=== PATIENT | male | born 1925 | race Caucasian/White ===

== ENCOUNTER 2017-05-03 16:50 | Inpatient (IN) | payer MEDICARE, OTHER ==
[2017-05-03 22:22] LABS: ALB/GLOB RATIO 1.1 (1.1-1.8); ALBUMIN 3.7 g/dL (3.0-4.8); ALT/SGPT 43 U/L (7-56); AST/SGOT 55 U/L (15-59); BLOOD UREA NITROGEN 32 mg/dL (7-21); CALCIUM 9.2 mg/dL (8.4-10.5); GFR AFRICAN-AMERICAN > 60; GFR NON-AFRICAN AMERICAN > 60
[2017-05-03 22:32] LABS: VENOUS BLOOD GAS BASE EXCESS 2.9 mmol/L (0.0-2.0); VENOUS BLOOD GAS PO2 29 mm/Hg (30-55); VENOUS BLOOD PH 7.37 (7.32-7.43)
[2017-05-03 22:33] LABS: INR 1.04 (0.93-1.08); MEAN CELL VOLUME 94.3 fL (80.0-105.0); MEAN CORPUSCULAR HEMOGLOBIN 31.4 pg (25.0-35.0); MEAN CORPUSCULAR HGB CONC 33.3 g/dl (31.0-37.0); MEAN PLATELET VOLUME 10.4 fl (7.0-11.0); PARTIAL THROMBOPLASTIN TIME 29.5 Seconds (23.7-30.8); PROTHROMBIN TIME 11.2 Seconds (9.9-11.8); RBC 3.5 10^6/uL (3.5-6.1); RED CELL DISTRIBUTION WIDTH 13.4 % (11.5-14.5); WHITE BLOOD COUNT 12.2 10^3/ul (4.5-11.0)
[2017-05-03 22:34] LABS: PH,URINE 6.5 (4.7-8.0); URINE APPEARANCE SL CLOUDY (CLEAR); URINE BILIRUBIN NEGATIVE (NEGATIVE); URINE BLOOD MODERATE (NEGATIVE); URINE COLOR YELLOW (YELLOW); URINE GLUCOSE (UA) NEGATIVE (NEGATIVE)
[2017-05-03 22:35] LABS: URINE LEUKOCYTE ESTERASE NEGATIVE Leu/uL (NEGATIVE); URINE NITRATE NEGATIVE (NEGATIVE); URINE PROTEIN TRACE mg/dL (<30 mg/dL); URINE RBC 15 - 20 /hpf (0-2); URINE UROBILINOGEN 0.2 E.U./dL (<1 E.U./dL); URINE WBC 15 - 20 /hpf (0-6)
[2017-05-03 22:36] LABS: URINE BACTERIA MOD (NEG)
[2017-05-03 23:02] VITALS: BMI 44.6
--- NOTE | 2017-05-04 00:02 | ED PDOC ---
Arrival/HPI - General Time Seen by Provider: 05/03/17 22:38 Historian: Patient - History of Present Illness Narrative History of Present Illness (Text): 05/03/17 23:54 89yo male with history of Dementia with the daughter's by the bedside referred to ED by his Urologist for testicular pain/swelling x days. The daughter states patient was given Bactrim DS, which he took for 3days without relieve. Saw the Urologist again today and was referred to ED to r/o possible incarcerated hernia. The daughter's however denies abdominal pain, nausea, vomiting, fever, chills, chest pain, SOB. They also reports back pain. states he tripped while walking today and fell on his back. Denies LOC, dizziness, focal weakness, any other complaint. Past Medical History - Provider Review Nursing Documentation Reviewed: Yes - Cardiac Hx Cardiac Disorders: No - Neurological Hx Neurological Disorder: Yes HX Cerebrovascular Accident: Yes Hx Dementia: Yes - Psychiatric Hx Substance Use: No - Surgical History Other/Comment: colon surgery - Anesthesia Hx Anesthesia: Yes Hx Anesthesia Reactions: No Hx Malignant Hyperthermia: No Family/Social History - Physician Review Nursing Documentation Reviewed: Yes Family/Social History: Unknown Family HX Smoking Status: Never Smoked Hx Alcohol Use: No Hx Substance Use: No Allergies/Home Meds Allergies/Adverse Reactions: Allergies No Known Allergies Allergy (Unverified 12/01/16 15:31) Home Medications: Home Meds Medication Instructions Recorded Confirmed Donepezil HCl [Aricept ODT] 5 mg PO HS 12/01/16 12/01/16 Primidone [Mysoline] 250 mg PO DAILY 12/01/16 12/01/16 predniSONE [predniSONE Tab] 5 mg PO QOTHERDAY 12/01/16 12/01/16 Review of Systems - Physician Review All systems were reviewed & negative as marked: Yes - Review of Systems Constitutional: Normal Eyes: Normal ENT: Normal Respiratory: Normal Cardiovascular: Normal Gastrointestinal: Normal Genitourinary Male: Other (Testicular pain/swelling) Musculoskeletal: Back Pain Skin: Normal Neurological: Normal Endocrine: Normal Hemo/Lymphatic: Normal Psychiatric: Normal Physical Exam Vital Signs Reviewed: Yes Temperature: Afebrile Blood Pressure: Normal Pulse: Regular Respiratory Rate: Normal Appearance: Positive for: Well-Appearing, Non-Toxic, Comfortable Pain Distress: None Mental Status: Positive for: Alert and Oriented X 3 - Systems Exam Head: Present: Atraumatic, Normocephalic Pupils: Present: PERRL Extroacular Muscles: Present: EOMI Conjunctiva: Present: Normal Mouth: Present: Moist Mucous Membranes Neck: Present: Normal Range of Motion Respiratory/Chest: Present: Clear to Auscultation, Good Air Exchange. No: Respiratory Distress, Accessory Muscle Use Cardiovascular: Present: Regular Rate and Rhythm, Normal S1, S2. No: Murmurs Abdomen: Present: Normal Bowel Sounds. No: Tenderness, Distention, Peritoneal Signs Genitourinary Male: Present: Testicle Tenderness (LEft sided testicular tenderness), Erythema, Testicle Swelling (Worse on the left) Back: Present: Midline Tenderness, Paraspinal Tenderness. No: Pain with Leg Raise Upper Extremity: Present: Normal Inspection. No: Cyanosis, Edema Lower Extremity: Present: Normal Inspection. No: Edema Neurological: Present: GCS=15, CN II-XII Intact, Speech Normal, Motor Func Grossly Intact, Normal Sensory Function, Other (No focal neurological deficit) Skin: Present: Warm, Dry, Normal Color. No: Rashes Psychiatric: Present: Alert, Oriented x 3, Normal Insight, Normal Concentration Medical Decision Making ED Course and Treatment: 05/04/17 00:07 Case was LUANNE Gil. Wants pt admitted to the Hospitalist and he will see pt tomorrow. Case was LUANNE Burrell and he accepted pt. All result and plan was DW patient daughter's and they agreed. IMPRESSION: Atrophy and small vessel disease, old right temporal infarct; no bleed IMPRESSION: Large avascular heterogeneous left scrotal mass possibly hematoma; hyperemic left testis, no torsion; cystic right scrotal lesion possibly hydrocele of the cord unchanged compared with the prior study; right paratesticular nodule unchanged compared with the prior study, no right torsion FINDINGS: Vertebrae: T11, T12 and 5 lumbar vertebral bodies are normal in height and alignment. There are no fractures. Bony structures are osteopenic. There are degenerative osteophytes at multiple levels. Disc spaces are maintained. Facet joints align anatomically.Spinous processes align in the expected fashion. There is partial ankylosis of the sacroiliac joints. Visualized sacrum is intact. Discs/spinal canal/neural foramina: See above. Soft tissues: Psoas and paraspinous muscles are symmetric. Retroperitoneum: There are bilateral nonobstructing stones. There is mild infrarenal dilatation of the aorta 2.3 cm in diameter. There is mild dilatation of the common iliac arteries , approximately 1.6 cm in diameter bilaterally. IMPRESSION: Osteopenia degenerative change, no fracture seen - Lab Interpretations Lab Results: 05/03/17 18:30 05/03/17 18:30 Lab Results 05/03/17 19:00: pO2 29 L, VBG pH 7.37, VBG pCO2 50.0, VBG HCO3 28.9 H, VBG O2 Sat (Calc) 58.3, VBG Base Excess 2.9 H 05/03/17 18:30: Urine Color Yellow, Urine Appearance Sl cloudy, Urine pH 6.5, Ur Specific [place] 1.020, Urine Protein Trace H, Urine Glucose (UA) Negative, Urine Ketones 15 H, Urine Blood Moderate H, Urine Nitrate Negative, Urine Bilirubin Negative, Urine Urobilinogen 0.2, Ur Leukocyte Esterase Negative, Urine RBC 15 - 20, Urine WBC 15 - 20, Ur Epithelial Cells 6 - 8, Urine Bacteria Mod 05/03/17 18:30: PT 11.2, INR 1.04, APTT 29.5 05/03/17 18:30: Sodium 134, Potassium 4.7, Chloride 101, Carbon Dioxide 25, Anion Gap 13, BUN 32 H, Creatinine 0.8, Est GFR ( Amer) > 60, Est GFR ( Non-Af Amer) > 60, Random Glucose 102, Calcium 9.2, Total Bilirubin 0.9, AST 55 , ALT 43, Alkaline Phosphatase 88, Total Protein 6.9, Albumin 3.7, Globulin 3.3 , Albumin/Globulin Ratio 1.1 05/03/17 18:30: WBC 12.2 H D, RBC 3.50, Hgb 11.0 L, Hct 33.0 L, MCV 94.3, MCH 31.4, MCHC 33.3, RDW 13.4, Plt Count 182, MPV 10.4 - RAD Interpretation Radiology Orders: 05/03/17 17:37 HEAD W/O CONTRAST [CT] Stat LUMBAR SPINE W/O CONTRAST [CT] Stat - Medication Orders Current Medication Orders: Discontinued Medications Tramadol HCl (Ultram) 50 mg PO STAT STA Stop: 05/03/17 23:05 Disposition/Present on Arrival - Present on Arrival Any Indicators Present on Arrival: No History of DVT/PE: No History of Uncontrolled Diabetes: No Urinary Catheter: No History of Decub. Ulcer: No History Surgical Site Infection Following: None - Disposition Have Diagnosis and Disposition been Completed?: Yes Diagnosis: Testicular mass, Testicular pain, Back pain Disposition: HOSPITALIZED Disposition Time: 22:45 Condition: FAIR
--- NOTE | 2017-05-04 00:42 | CP.PCM.HP ---
<Gigi Brasher - Last Filed: 05/04/17 08:33> History of Present Illness - History of Present Illness History of Present Illness: cc: testicular pain HPI: Patient is an 89yo male with history of dementia, CVA that presents c/o testicular pain. Patient's family reported that he had been having testicular pain for several days now and was seen by his urologist earlier in the week. They report that he was prescribed bactrim which he was taking without relief. He was seen by his urologist again today who recommended he come to the emergency room due to concerns of a possible incarcerated hernia. They also reported that he fell while walking earlier in the day however denied loss of consciousness, post-ictal like state, focal weakness, numbness, tingling. Denied chest pain, palpitations, SOB. 12point ROS as per HPI above otherwise negative PMHx: dementia, CVA PSHx: colon surgery Allergies: NKDA Social Hx: denies tobacco, alcohol and illicit drugs Family Hx: Noncontributory Present on Admission - Present on Admission Any Indicators Present on Admission: No Past Patient History - Past Social History Smoking Status: Never Smoked - CARDIAC Hx Cardiac Disorders: No - NEUROLOGICAL Hx Neurological Disorder: Yes HX Cerebrovascular Accident: Yes Hx Dementia: Yes - PSYCHIATRIC Hx Substance Use: No - SURGICAL HISTORY Other/Comment: colon surgery - ANESTHESIA Hx Anesthesia: Yes Hx Anesthesia Reactions: No Hx Malignant Hyperthermia: No Meds Allergies/Adverse Reactions: Allergies Allergy/AdvReac Type Severity Reaction Status Date / Time No Known Allergies Allergy Verified 05/12/17 00:20 Physical Exam - Constitutional Appears: No Acute Distress - Head Exam Head Exam: ATRAUMATIC, NORMAL INSPECTION, NORMOCEPHALIC - Eye Exam Eye Exam: EOMI, PERRL - ENT Exam ENT Exam: Mucous Membranes Moist - Neck Exam Neck exam: Positive for: Normal Inspection. Negative for: Lymphadenopathy, Thyromegaly - Respiratory Exam Respiratory Exam: Clear to Auscultation Bilateral. absent: Rales, Rhonchi, Wheezes - Cardiovascular Exam Cardiovascular Exam: RRR, +S1, +S2. absent: Gallop, Rubs - GI/Abdominal Exam GI & Abdominal Exam: Normal Bowel Sounds, Soft. absent: Distended, Firm, Guarding, Rigid, Tenderness - Exam Exam: Scrotal Swelling, Testicular Tenderness. absent: NORMAL INSPECTION - Neurological Exam Neurological exam: Alert, Oriented x3 - Psychiatric Exam Psychiatric exam: Normal Affect, Normal Mood - Skin Skin Exam: Dry, Intact, Normal Color, Warm Results - Labs Result Diagrams: 05/03/17 18:30 05/03/17 18:30 Assessment & Plan - Assessment and Plan (Free Text) Plan: 89yo male with history of dementia presents c/o left sided testicular pain 1. Testicular pain -Testicular duplex revealed Large avascular heterogeneous left scrotal mass possibly hematoma; hyperemic left testis, no torsion; cystic right scrotal lesion possibly hydrocele of the cord unchanged compared with the prior study; right paratesticular nodule unchanged compared with the prior study, no right torsion -Case was discussed between ED and urology; recommendation admission for urologic evaluation in the AM -UA notable for mod bacteria, 15-20 WBCs/RBCs, moderate blood -leukocytosis of 12.2 -Blood/urine cultures pending; procalcitonin pending -Urology was consulted - Dr. Gil 2. Back pain s/p fall -CT head revealed atrophy and small vessel disease, old right temporal infarct; no bleed -CT lumbar spine revealed Osteopenia degenerative change, no fracture seen -Pain control 3. Dementia -Continue home medication 4. Gi/DVT prophylaxis -Protonix/heparin Patient seen and case discussed with attending, Dr. Burrell - Date & Time Date: 05/04/17 Time: 00:40 <Kraig Burrell MD - Last Filed: 05/19/17 04:54> Results - Vital Signs Recent Vital Signs: Last Vital Signs Temp 98 F 05/08/17 16:00 Pulse 87 05/08/17 16:00 Resp 19 05/08/17 16:00 BP 121/63 05/08/17 16:00 Pulse Ox 96 05/08/17 16:00 - Labs Result Diagrams: 05/08/17 07:50 05/08/17 07:50 Attending/Attestation - Attestation I have personally seen and examined this patient.: Yes I have fully participated in the care of the patient.: Yes I have reviewed all pertinent clinical information: Yes Notes (Text): 05/19/17 04:53 -I agree with the above H&P completed by the resident physician.
[2017-05-04 07:28] LABS: % IRON SATURATION 12 % (20-55); IRON 28 ug/dL (45-180); TOTAL IRON BINDING CAPACITY 230 ug/dL (261-462)
--- NOTE | 2017-05-04 09:35 | CT ---
PROCEDURE: CT HEAD WITHOUT CONTRAST. HISTORY: TRAUMA COMPARISON: 08/10/2016 TECHNIQUE: Axial computed tomography images were obtained through the head/brain without intravenous contrast. Radiation dose: Total exam DLP = 774.23 mGy-cm. This CT exam was performed using one or more of the following dose reduction techniques: Automated exposure control, adjustment of the mA and/or kV according to patient size, and/or use of iterative reconstruction technique. FINDINGS: HEMORRHAGE: No intracranial hemorrhage. BRAIN: No mass effect or edema. No atrophy or chronic microvascular ischemic changesMacro atrophies old left temporal lobe infarct. VENTRICLES: Unremarkable. No hydrocephalus. CALVARIUM: Unremarkable. PARANASAL SINUSES: Unremarkable as visualized. No significant inflammatory changes. MASTOID AIR CELLS: Unremarkable as visualized. No inflammatory changes. OTHER FINDINGS: None. IMPRESSION: No acute intracranial abnormalities. No significant findings to account for the clinical presentation. No significant interval change compared to the prior examination(s). Concordant results (preliminary interpretation) provided by [facility] Procedure Completed: 18:38 Preliminary ([facility]) Report: Dictated and Authenticated: 19:42 Final Interpretation: 09:33. May 04, 2017.
[2017-05-04] MEDS: cefTRIAXone 1 gm 1 GM/100 ML BAG IVPB SCH (10:04)
--- NOTE | 2017-05-04 10:56 | CT ---
PROCEDURE: CT Lumbar Spine without contrast HISTORY: TRAUMA COMPARISON: 12/01/2016. CT abdomen and pelvis TECHNIQUE: Axial computed tomography images were obtained of the lumbar spine without the use of intravenous contrast. Coronal and sagittal reformatted images were created and reviewed. Radiation dose: Total exam DLP = 192.35 mGy-cm. This CT exam was performed using one or more of the following dose reduction techniques: Automated exposure control, adjustment of the mA and/or kV according to patient size, and/or use of iterative reconstruction technique. FINDINGS: VERTEBRAE: Normal alignment. No vertebral body fractures identified. DISCS/SPINAL CANAL/NEURAL FORAMINA: L1-2: Unremarkable. L2-3: Unremarkable. L3-4: Unremarkable. L4-5: Unremarkable. L5-S1: Unremarkable. PARASPINAL SOFT TISSUES: Unremarkable. OTHER FINDINGS: Multiple nonobstructing renal calculi bilaterally. Findings apparent on prior CT scan of the abdomen and pelvis performed Calcified nonaneurysmal abdominal aorta. IMPRESSION: No acute findings related to/accounting for the clinical presentation. Additional benign and/or incidental findings described above. Concordant results (preliminary interpretation) provided by [facility] [employer]. Procedure Completed: 16:52 Preliminary ([facility]) Report: Dictated and Authenticated: 19:49. Final Interpretation: 10:52. May 04, 2017.
--- NOTE | 2017-05-04 11:32 | RAD ---
HISTORY: admission COMPARISON: 12/01/2016 FINDINGS: LUNGS: Fibronodular changes, apical scarring bilaterally. PLEURA: No significant pleural effusion identified, no pneumothorax apparent. CARDIOVASCULAR: Normal. OSSEOUS STRUCTURES: No significant abnormalities. VISUALIZED UPPER ABDOMEN: Normal. OTHER FINDINGS: None. IMPRESSION: No active disease. No significant interval change compared to the prior examination(s).
--- NOTE | 2017-05-04 20:19 | US ---
PROCEDURE: Duplex testicular ultrasound HISTORY: Scrotal mass and pain. PHYSICIAN(S): Giovanny Calhoun MD. TECHNIQUE: FINDINGS: The testicles are normal in size and appearance. No testicular masses are identified. Normal duplex signal is seen within the testicle. There is a 3.2 x 4.0 cm anechoic fluid collection superior to the right testicle. This could represent an epididymal cyst. The left epididymis is markedly dilated and heterogeneous in echotexture. This appears to represent epididymitis. IMPRESSION: 1. Normal testicles. No testicular mass is identified and there is normal duplex flow. 2. Markedly enlarged and heterogeneous left epididymis. 3. 4 cm right epididymal cyst
[2017-05-05] MEDS: Pantoprazole 40 mg EC Tab PO SCH (06:45)
[2017-05-05 07:41] LABS: HEMOGLOBIN 10.7 gm/dL (14.0-18.0); MEAN CELL VOLUME 93.7 fL (80.0-105.0); MEAN CORPUSCULAR HEMOGLOBIN 30.8 pg (25.0-35.0); MEAN CORPUSCULAR HGB CONC 32.9 g/dl (31.0-37.0); MEAN PLATELET VOLUME 10.4 fl (7.0-11.0); RBC 3.47 10^6/uL (3.5-6.1); RED CELL DISTRIBUTION WIDTH 13.2 % (11.5-14.5)
[2017-05-05 07:45] LABS: INR 0.95 (0.93-1.08); PARTIAL THROMBOPLASTIN TIME 29.9 Seconds (23.7-30.8); PROTHROMBIN TIME 10.3 Seconds (9.9-11.8)
[2017-05-05 08:01] LABS: ALBUMIN 3.3 g/dL (3.0-4.8); ALT/SGPT 41 U/L (7-56); AST/SGOT 55 U/L (15-59); BLOOD UREA NITROGEN 25 mg/dL (7-21); GFR AFRICAN-AMERICAN > 60; GFR NON-AFRICAN AMERICAN > 60
--- NOTE | 2017-05-05 08:06 | PCM.URO ---
Urology Progress Note - Objective Lab Results Last 24 Hours: Laboratory Results - last 24 hr 05/04/17 05/04/17 05/05/17 06:00 06:00 07:00 WBC 8.0 D RBC 3.47 L Hgb 10.7 L Hct 32.5 L MCV 93.7 MCH 30.8 MCHC 32.9 RDW 13.2 Plt Count 177 MPV 10.4 PT INR APTT Sodium Potassium Chloride Carbon Dioxide Anion Gap BUN Creatinine Est GFR ( Amer) Est GFR (Non-Af Amer) Random Glucose Calcium Ferritin 130.0 Total Bilirubin AST ALT Alkaline Phosphatase Total Protein Albumin Globulin Albumin/Globulin Ratio Vitamin B12 478 Folate 12.0 Procalcitonin 0.46 05/05/17 05/05/17 07:00 07:00 WBC RBC Hgb Hct MCV MCH MCHC RDW Plt Count MPV PT 10.3 INR 0.95 APTT 29.9 Sodium 136 Potassium 4.7 Chloride 100 Carbon Dioxide 29 Anion Gap 12 BUN 25 H Creatinine 0.6 Est GFR ( Amer) > 60 Est GFR (Non-Af Amer) > 60 Random Glucose 87 Calcium 9.0 Ferritin Total Bilirubin 0.4 AST 55 ALT 41 Alkaline Phosphatase 80 Total Protein 6.5 Albumin 3.3 Globulin 3.2 Albumin/Globulin Ratio 1.0 L Vitamin B12 Folate Procalcitonin Intake & Output: Intake & Output 05/04/17 05/05/17 05/05/17 18:59 06:59 18:59 Intake Total 720 120 0 Output Total 400 300 Balance 320 120 -300 Intake: Oral 720 120 0 Output: Urine 400 300 Urine, Voided 400 300 Other: # Voids Urine, Voided 2 1 # Bowel Movements 0 0 0 Vital Signs: Vital Signs - 24 hr 05/04/17 17:30 Temperature 97 F L Pulse Rate 70 Respiratory 18 Rate Blood Pressure 117/59 L
--- NOTE | 2017-05-05 08:30 | PCM.URO ---
Urology Progress Note - Subjective Abdominal Pain: Yes (scrotal pain , on left ) - Objective Lab Results Last 24 Hours: Laboratory Results - last 24 hr 05/04/17 05/04/17 05/05/17 06:00 06:00 07:00 WBC 8.0 D RBC 3.47 L Hgb 10.7 L Hct 32.5 L MCV 93.7 MCH 30.8 MCHC 32.9 RDW 13.2 Plt Count 177 MPV 10.4 PT INR APTT Sodium Potassium Chloride Carbon Dioxide Anion Gap BUN Creatinine Est GFR ( Amer) Est GFR (Non-Af Amer) Random Glucose Calcium Ferritin 130.0 Total Bilirubin AST ALT Alkaline Phosphatase Total Protein Albumin Globulin Albumin/Globulin Ratio Vitamin B12 478 Folate 12.0 Procalcitonin 0.46 05/05/17 05/05/17 07:00 07:00 WBC RBC Hgb Hct MCV MCH MCHC RDW Plt Count MPV PT 10.3 INR 0.95 APTT 29.9 Sodium 136 Potassium 4.7 Chloride 100 Carbon Dioxide 29 Anion Gap 12 BUN 25 H Creatinine 0.6 Est GFR ( Amer) > 60 Est GFR (Non-Af Amer) > 60 Random Glucose 87 Calcium 9.0 Ferritin Total Bilirubin 0.4 AST 55 ALT 41 Alkaline Phosphatase 80 Total Protein 6.5 Albumin 3.3 Globulin 3.2 Albumin/Globulin Ratio 1.0 L Vitamin B12 Folate Procalcitonin Intake & Output: Intake & Output 05/04/17 05/05/17 05/05/17 18:59 06:59 18:59 Intake Total 720 120 0 Output Total 400 300 Balance 320 120 -300 Weight 77 lb Intake: Oral 720 120 0 Output: Urine 400 300 Urine, Voided 400 300 Other: # Voids Urine, Voided 2 1 # Bowel Movements 0 0 0 Vital Signs: Vital Signs - 24 hr 05/04/17 17:30 Temperature 97 F L Pulse Rate 70 Respiratory 18 Rate Blood Pressure 117/59 L - Male Scrotum: Erythema, Edema, Hydrocele Testes: Normal: Left - Date & Time of Note Date: 05/05/17
--- NOTE | 2017-05-05 09:55 | CT ---
PROCEDURE: CT Abdomen and Pelvis without intravenous contrast HISTORY: scrotal mass COMPARISON: 12/01/2016 TECHNIQUE: Without contrast. Contrast Dose: Radiation dose: Total exam DLP = 215 mGy-cm. This CT exam was performed using one or more of the following dose reduction techniques: Automated exposure control, adjustment of the mA and/or kV according to patient size, and/or use of iterative reconstruction technique. FINDINGS: LOWER THORAX: Small nodules are again seen in the right middle lobe the largest measuring 7 mm. Prominent interstitial markings are also seen in this area. Findings are most likely inflammatory in origin. LIVER: Unremarkable. No gross lesion or ductal dilatation. GALLBLADDER AND BILE DUCTS: Unremarkable. PANCREAS: Unremarkable. No gross lesion or ductal dilatation. SPLEEN: Unremarkable. ADRENALS: Unremarkable. No mass. KIDNEYS AND URETERS: Bilateral nonobstructing renal stones are seen with stones measuring up to 7 mm in diameter. VASCULATURE: Unremarkable. No aortic aneurysm. BOWEL: Unremarkable. No obstruction. No gross mural thickening. Mild constipation APPENDIX: Unremarkable. Normal appendix. PERITONEUM: Unremarkable. No free fluid. No free air. LYMPH NODES: Unremarkable. No enlarged lymph nodes. BLADDER: Unremarkable. REPRODUCTIVE: The left scrotum is distended with a fluid collection. On CT this cannot be distinguished from a hydrocele. However on the ultrasound performed 05/03/2017 a heterogeneous complex cystic lesion was seen arising from the epididymis. A simple fluid collection was seen in the right scrotum. The left scrotum measures 5.5 x 6.9 cm on image 165 series 2 BONES: No acute fracture. OTHER FINDINGS: None. IMPRESSION: Large fluid collection in the left scrotum. Recent ultrasound showed this to be a complex cyst arising from the epididymis.
[2017-05-05] MEDS: cefTRIAXone 1 gm 1 GM/100 ML BAG IVPB SCH (10:06)
--- NOTE | 2017-05-05 15:03 | RAD ---
PROCEDURE: Abdomen multiple views HISTORY: UROLITHIASIS COMPARISON: TECHNIQUE: Three views FINDINGS: Stones are seen in the lower poles of both kidneys. There is a 9 mm and 3 mm stone on the right there is a 7 mm and 3 mm stone on the left IMPRESSION: Nephrolithiasis
--- NOTE | 2017-05-05 16:27 | CP.PCM.PN ---
<MIRIAN VELEZ - Last Filed: 05/05/17 17:41> Subjective - Date & Time of Evaluation Date of Evaluation: 05/05/17 Time of Evaluation: 10:50 - Subjective Subjective: Medicine Progress Note: Pt seen and assessed at bedside. Pt reported testicular pain to be stable in intensity but did report moderate left low back pain. Pt denied headache, dizziness, fever, chest pain, dyspnea, abdominal pain, difficulty or painful urination. Objective - Vital Signs/Intake and Output Vital Signs (last 24 hours): Temp Pulse Resp BP Pulse Ox 97.8 F 71 18 117/68 97 05/05/17 08:54 05/05/17 08:54 05/05/17 08:54 05/05/17 08:54 05/05/17 08:54 - Medications Medications: Current Medications Donepezil HCl (Aricept) 5 mg PO HS [facility] Last Admin: 05/04/17 22:00 Dose: 5 mg Heparin Sodium (Porcine) (Heparin) 5,000 units SC Q12 [facility] PRN Reason: Protocol Last Admin: 05/05/17 10:06 Dose: 5,000 units Ceftriaxone Sodium (Rocephin 1 Gram Ivpb) 1 gm in 100 mls @ 100 mls/hr IVPB DAILY [facility] PRN Reason: Protocol Last Admin: 05/05/17 10:06 Dose: 100 mls/hr Ketorolac Tromethamine (Toradol) 15 mg IVP Q8H PRN PRN Reason: Pain, moderate (4-7) Pantoprazole Sodium (Protonix Ec Tab) 40 mg PO 0600 [facility] Last Admin: 05/05/17 06:45 Dose: 40 mg - Labs Labs: PT 10.3 Seconds (9.9-11.8) 05/05/17 07:00 INR 0.95 (0.93-1.08) 05/05/17 07:00 APTT 29.9 Seconds (23.7-30.8) 05/05/17 07:00 - Constitutional Appears: Well, No Acute Distress - Head Exam Head Exam: ATRAUMATIC, NORMOCEPHALIC - Eye Exam Eye Exam: EOMI, Normal appearance - ENT Exam ENT Exam: Mucous Membranes Moist, Normal Exam - Neck Exam Neck Exam: Full ROM - Respiratory Exam Respiratory Exam: Clear to Ausculation Bilateral, NORMAL BREATHING PATTERN. absent: Rales, Rhonchi, Wheezes - Cardiovascular Exam Cardiovascular Exam: REGULAR RHYTHM, RRR, +S1, +S2. absent: Murmur - GI/Abdominal Exam GI & Abdominal Exam: Soft. absent: Distended, Firm, Hernia - Exam Exam: Circumcision, Scrotal Swelling - Back Exam Back Exam: tenderness - Neurological Exam Neurological Exam: Alert, Awake, Oriented x3 - Psychiatric Exam Psychiatric exam: Normal Affect, Normal Mood - Skin Skin Exam: Dry, Intact, Normal Color, Warm Assessment and Plan - Assessment and Plan (Free Text) Assessment: 89 yo male with history of dementia and CVA admitted with testicular swelling/ mass 1. Testicular mass -CT abd/pelvis showed large fluid collection, which US showed to be complex cyst arising from epididymis -will await urology recommendation for further management -pain controlled with toradol 2. Nephrolithiasis -abd xray showed 9mm and 3mm stone on R side as well as 7mm and 3mm stone on L side -asymptomatic at this time with no obstruction noted on CT -will monitor for now 3. Left sided low back pain -CT of lumbar spine on admission showed no fracture -pain controlled with toradol 4. GI/DVT ppx -protonix/heparin Case and plan was seen reviewed and discussed in detail with Dr Branham. <Billy Branham - Last Filed: 05/06/17 07:05> Objective - Vital Signs/Intake and Output Vital Signs (last 24 hours): Temp Pulse Resp BP Pulse Ox 99.1 F 77 18 109/51 L 97 05/05/17 16:00 05/05/17 16:00 05/05/17 16:00 05/05/17 16:00 05/05/17 16:00 Intake and Output: 05/05/17 05/06/17 18:59 06:59 Intake Total 420 Output Total 400 Balance 20 - Medications Medications: Current Medications Donepezil HCl (Aricept) 5 mg PO HS [facility] Last Admin: 05/05/17 21:25 Dose: 5 mg Heparin Sodium (Porcine) (Heparin) 5,000 units SC Q12 [facility] PRN Reason: Protocol Last Admin: 05/05/17 21:25 Dose: 5,000 units Ceftriaxone Sodium (Rocephin 1 Gram Ivpb) 1 gm in 100 mls @ 100 mls/hr IVPB DAILY [facility] PRN Reason: Protocol Last Admin: 05/05/17 10:06 Dose: 100 mls/hr Ketorolac Tromethamine (Toradol) 15 mg IVP Q8H PRN PRN Reason: Pain, moderate (4-7) Pantoprazole Sodium (Protonix Ec Tab) 40 mg PO 0600 [facility] Last Admin: 05/06/17 06:21 Dose: 40 mg - Labs Labs: PT 10.3 Seconds (9.9-11.8) 05/05/17 07:00 INR 0.95 (0.93-1.08) 05/05/17 07:00 APTT 29.9 Seconds (23.7-30.8) 05/05/17 07:00 Attending/Attestation - Attestation I have personally seen and examined this patient.: Yes I have fully participated in the care of the patient.: Yes I have reviewed all pertinent clinical information, including history, physical exam and plan: Yes Notes (Text): 05/06/17 89 year old male with past medical history of dementia and CVA who presented with complaint of testicular pain and swelling. Testicular US showed epididymitis/cyst. CT abd/pelvis showed large fluid collection. Abdominal xray also showed 9 mm and 3 mm stone. Urology evaluation was appreciated. Will follow up with recommendations. He also complains of low back pain s/p fall from bed at home. He is on toradol prn. PT evaluation is requested. Billy Branham MD Hospitalist.
[2017-05-06] MEDS: Pantoprazole 40 mg EC Tab PO SCH (06:21)
--- NOTE | 2017-05-06 08:49 | CARD ---
APPROVED REPORT EKG Measurement Heart [id number] <Conclusion> Normal sinus rhythm Normal ECG
[2017-05-06] MEDS: cefTRIAXone 1 gm 1 GM/100 ML BAG IVPB SCH (09:24)
--- NOTE | 2017-05-06 12:36 | CP.PCM.CON ---
History of Present Illness - History of Present Illness History of Present Illness: Reason for consulatation : pre op clearance for urological procedure. 89 year old male with significant / documented hx of CAD, daughter at bed side admiteed with testicular swellinfg possible requiring cystosopy9 or urological procedure0, denies any chest pain, HERNANDEZ, palpitation P Mhx. ? CVA / Dementia P S Hx cholecystectomy... 15 years ago, uneventfull Shx , no smoking, no ETOH abuse. Current medss : aricept at home NKDA Past Patient History - Past Social History Smoking Status: Never Smoked - CARDIAC Hx Cardiac Disorders: No - NEUROLOGICAL Hx Neurological Disorder: Yes HX Cerebrovascular Accident: Yes Hx Dementia: Yes - MUSCULOSKELETAL/RHEUMATOLOGICAL Hx Falls: Yes - PSYCHIATRIC Hx Substance Use: No - SURGICAL HISTORY Other/Comment: colon surgery - ANESTHESIA Hx Anesthesia: Yes Hx Anesthesia Reactions: No Hx Malignant Hyperthermia: No Meds Allergies/Adverse Reactions: Allergies Allergy/AdvReac Type Severity Reaction Status Date / Time No Known Allergies Allergy Unverified 12/01/16 15:31 - Medications Medications: Current Medications Donepezil HCl (Aricept) 5 mg PO HS [facility] Last Admin: 05/05/17 21:25 Dose: 5 mg Heparin Sodium (Porcine) (Heparin) 5,000 units SC Q12 [facility] PRN Reason: Protocol Last Admin: 05/06/17 09:23 Dose: 5,000 units Ceftriaxone Sodium (Rocephin 1 Gram Ivpb) 1 gm in 100 mls @ 100 mls/hr IVPB DAILY [facility] PRN Reason: Protocol Last Admin: 05/06/17 09:24 Dose: 100 mls/hr Ketorolac Tromethamine (Toradol) 15 mg IVP Q8H PRN PRN Reason: Pain, moderate (4-7) Pantoprazole Sodium (Protonix Ec Tab) 40 mg PO 0600 [facility] Last Admin: 05/06/17 06:21 Dose: 40 mg Results - Vital Signs Recent Vital Signs: Last Vital Signs Temp 99.1 F 05/05/17 16:00 Pulse 76 05/06/17 06:00 Resp 18 05/06/17 06:00 BP 95/53 L 05/06/17 06:00 Pulse Ox 95 05/06/17 06:00 - Labs Result Diagrams: 05/05/17 07:00 07/03/17 07:00 - Impressions Impression: NSR no acute ST t change. Assessment & Plan - Assessment and Plan (Free Text) Assessment: 89 year old male with acute p[ossible epididimo-orchitis requiring inter vention , pre-op clearance no definite cariac hx, or HTN, DM benign EKG, No Hx of CHF, arrythmia, or angina. so no absolute contra indicatoion for urological procedure Pt is ok to go for Urological procedure with Moderate Risk secondary to co morbidity and age. will follow, thankyou/
--- NOTE | 2017-05-06 15:42 | CP.PCM.PN ---
<MIRIAN VELEZ - Last Filed: 05/06/17 17:32> Subjective - Date & Time of Evaluation Date of Evaluation: 05/06/17 Time of Evaluation: 10:50 - Subjective Subjective: Medicine Progress Note: Pt seen and assessed at bedside. Pt has no new complaints at this time. Pt denies SOB, chest pain, fever, headache, abdominal pain or pain/difficulty urinating. Objective - Vital Signs/Intake and Output Vital Signs (last 24 hours): Temp Pulse Resp BP Pulse Ox 99.1 F 76 18 95/53 L 95 05/05/17 16:00 05/06/17 06:00 05/06/17 06:00 05/06/17 06:00 05/06/17 06:00 Intake and Output: 05/06/17 05/06/17 06:59 18:59 Intake Total 420 240 Output Total 400 250 Balance 20 -10 - Medications Medications: Current Medications Donepezil HCl (Aricept) 5 mg PO HS [facility] Last Admin: 05/05/17 21:25 Dose: 5 mg Heparin Sodium (Porcine) (Heparin) 5,000 units SC Q12 [facility] PRN Reason: Protocol Last Admin: 05/06/17 09:23 Dose: 5,000 units Ceftriaxone Sodium (Rocephin 1 Gram Ivpb) 1 gm in 100 mls @ 100 mls/hr IVPB DAILY [facility] PRN Reason: Protocol Last Admin: 05/06/17 09:24 Dose: 100 mls/hr Ketorolac Tromethamine (Toradol) 15 mg IVP Q8H PRN PRN Reason: Pain, moderate (4-7) Pantoprazole Sodium (Protonix Ec Tab) 40 mg PO 0600 [facility] Last Admin: 05/06/17 06:21 Dose: 40 mg - Labs Labs: PT 10.3 Seconds (9.9-11.8) 05/05/17 07:00 INR 0.95 (0.93-1.08) 05/05/17 07:00 APTT 29.9 Seconds (23.7-30.8) 05/05/17 07:00 - Constitutional Appears: No Acute Distress - Head Exam Head Exam: ATRAUMATIC, NORMAL INSPECTION - Eye Exam Eye Exam: EOMI, Normal appearance - ENT Exam ENT Exam: Mucous Membranes Moist, Normal Exam - Neck Exam Neck Exam: Full ROM - Respiratory Exam Respiratory Exam: Clear to Ausculation Bilateral, NORMAL BREATHING PATTERN. absent: Rales, Rhonchi, Wheezes - Cardiovascular Exam Cardiovascular Exam: REGULAR RHYTHM, +S1, +S2. absent: Murmur - GI/Abdominal Exam GI & Abdominal Exam: absent: Distended, Guarding, Tenderness, Hernia - Exam Exam: Circumcision, Scrotal Swelling, Testicular Tenderness Additional comments: left scrotal mass with minimal erythema on surrouding skin - Neurological Exam Neurological Exam: Alert, Awake, Oriented x3 - Psychiatric Exam Psychiatric exam: Normal Affect, Normal Mood - Skin Skin Exam: Dry, Intact, Normal Color, Warm Assessment and Plan - Assessment and Plan (Free Text) Assessment: 89 yo male with history of dementia and CVA admitted with testicular swelling/ mass 1. Testicular mass -CT abd/pelvis showed large fluid collection, which US showed to be complex cyst arising from epididymis -cardiac clearance obtained by cardiology for drainage procedure to be done by urology -pain controlled with toradol 2. Nephrolithiasis -abd xray showed 9mm and 3mm stone on R side as well as 7mm and 3mm stone on L side -pt continues to be asymptomatic -will continue to monitor -will consider alpha ish/IV fluids if pt becomes symptomatic 3. UTI -continue rocephin 4. Left sided low back pain -pain controlled with toradol 5. GI/DVT ppx -protonix/heparin Patient seen and case discussed with attending physician, Dr. Branham. <Billy Branham - Last Filed: 05/06/17 17:53> Objective - Vital Signs/Intake and Output Vital Signs (last 24 hours): Temp Pulse Resp BP Pulse Ox 98.2 F 87 18 128/64 97 05/06/17 16:00 05/06/17 16:00 05/06/17 16:00 05/06/17 16:00 05/06/17 16:00 Intake and Output: 05/06/17 05/06/17 06:59 18:59 Intake Total 420 240 Output Total 400 250 Balance 20 -10 - Medications Medications: Current Medications Donepezil HCl (Aricept) 5 mg PO HS [facility] Last Admin: 05/05/17 21:25 Dose: 5 mg Heparin Sodium (Porcine) (Heparin) 5,000 units SC Q12 [facility] PRN Reason: Protocol Last Admin: 05/06/17 09:23 Dose: 5,000 units Ceftriaxone Sodium (Rocephin 1 Gram Ivpb) 1 gm in 100 mls @ 100 mls/hr IVPB DAILY [facility] PRN Reason: Protocol Last Admin: 05/06/17 09:24 Dose: 100 mls/hr Ketorolac Tromethamine (Toradol) 15 mg IVP Q8H PRN PRN Reason: Pain, moderate (4-7) Pantoprazole Sodium (Protonix Ec Tab) 40 mg PO 0600 [facility] Last Admin: 05/06/17 06:21 Dose: 40 mg - Labs Labs: PT 10.3 Seconds (9.9-11.8) 05/05/17 07:00 INR 0.95 (0.93-1.08) 05/05/17 07:00 APTT 29.9 Seconds (23.7-30.8) 05/05/17 07:00 Attending/Attestation - Attestation I have personally seen and examined this patient.: Yes I have fully participated in the care of the patient.: Yes I have reviewed all pertinent clinical information, including history, physical exam and plan: Yes Notes (Text): 05/06/17 17:49 89 year old male with past medical history of dementia and CVA who presented with complaint of testicular pain and swelling. Testicular US showed epididymitis/cyst. CT abd/pelvis showed large fluid collection. Abdominal xray also showed 9 mm and 3 mm stone. Urology is following and plan is for procedure tomorrow. Cardiology evaluation was appreciated for pre-op clearance. EKG and prior echo was reviewed. Patient is moderate risk for due to age and co-morbidities. He also complains of low back pain s/p fall from bed at home. He is on toradol prn for pain. PT evaluation was appreciated who recommended ZEB. Family is at bedside and questions were answered. Billy Branham MD Hospitalist.
[2017-05-07] MEDS: Pantoprazole 40 mg EC Tab PO SCH (05:37)
[2017-05-07 07:41] LABS: BASO # 0.01 K/mm3 (0.0-2.0); BASO % 0.1 % (0.0-3.0); EOS # 0.1 (0.0-0.7); GRAN # 6.58 (1.4-6.5); GRAN % 79.3 % (50.0-68.0); HEMOGLOBIN 10.6 gm/dL (14.0-18.0); LYMPH % 11.6 % (22.0-35.0); MEAN CORPUSCULAR HEMOGLOBIN 31.2 pg (25.0-35.0); MEAN CORPUSCULAR HGB CONC 32.8 g/dl (31.0-37.0); MEAN PLATELET VOLUME 10.3 fl (7.0-11.0); MONO # 0.7 (0.1-0.6); PLATELET COUNT 209 10^3/uL (120.0-450.0); RED CELL DISTRIBUTION WIDTH 13.4 % (11.5-14.5); WHITE BLOOD COUNT 8.3 10^3/ul (4.5-11.0)
[2017-05-07 07:54] LABS: ALBUMIN 3.4 g/dL (3.0-4.8); ALT/SGPT 45 U/L (7-56); AST/SGOT 32 U/L (15-59); BLOOD UREA NITROGEN 31 mg/dL (7-21); CALCIUM 9.3 mg/dL (8.4-10.5); GFR AFRICAN-AMERICAN > 60; GFR NON-AFRICAN AMERICAN > 60; HDL CHOLESTEROL 53 mg/dL (29-60)
[2017-05-07] MEDS ORDERED: Lidocaine 2% Inj (20ml) ONE ×2 (07:56→08:01)
[2017-05-07] MEDS ORDERED: cefTRIAXone (Rocephin) 1 gm Inj ONE (07:57)
[2017-05-07] MEDS ORDERED: Bupivacaine 0.5% Inj(30mL) ONE (07:57)
[2017-05-07] MEDS ORDERED: Propofol 10 mg/ml Inj (20 ML) ONE (08:00)
[2017-05-07 08:05] LABS: LDL CHOLESTEROL 75 mg/dL (0-129)
--- NOTE | 2017-05-07 08:22 | PCM.URO ---
Urology Progress Note - Objective Lab Results Last 24 Hours: Laboratory Results - last 24 hr 05/07/17 05/07/17 07:00 07:00 WBC 8.3 RBC 3.40 L Hgb 10.6 L Hct 32.3 L MCV 95.0 MCH 31.2 MCHC 32.8 RDW 13.4 Plt Count 209 MPV 10.3 Gran % 79.3 H Lymph % (Auto) 11.6 L [place] % (Auto) 8.0 H Eos % (Auto) 1.0 L Baso % (Auto) 0.1 Gran # 6.58 H Lymph # 1.0 L [place] # 0.7 H Eos # 0.1 Baso # 0.01 Sodium 137 Potassium 5.2 H Chloride 101 Carbon Dioxide 31 Anion Gap 10 BUN 31 H Creatinine 0.7 Est GFR ( Amer) > 60 Est GFR (Non-Af Amer) > 60 Random Glucose 95 Calcium 9.3 Phosphorus 3.6 Magnesium 2.0 Total Bilirubin 0.4 AST 32 ALT 45 Alkaline Phosphatase 95 Total Protein 6.8 Albumin 3.4 Globulin 3.4 Albumin/Globulin Ratio 1.0 L Triglycerides 75 Cholesterol 149 LDL Cholesterol Direct 75 HDL Cholesterol 53 Intake & Output: Intake & Output 05/06/17 05/07/17 05/07/17 18:59 06:59 18:59 Intake Total 240 540 0 Output Total 250 1 500 Balance -10 539 -500 Intake: Oral 240 540 0 Output: Urine 250 1 500 Urine, Voided 250 1 500 Stool 0 Other: # Voids Urine, Voided 1 # Bowel Movements 0 Vital Signs: Vital Signs - 24 hr 05/06/17 05/07/17 16:00 08:16 Temperature 98.2 F 98.2 F Pulse Rate 87 78 Respiratory 18 20 Rate Blood Pressure 128/64 119/68 O2 Sat by Pulse 97 96 Oximetry
[2017-05-07] MEDS ORDERED: Morphine 2 mg/ml ISec IVP PRN (09:48)
[2017-05-07] MEDS ORDERED: Lactated Ringer's 1,000 ML IV SCH (09:48)
[2017-05-07 17:05] LABS: TOTAL PSA 5.8 ng/mL (<=4.0)
--- NOTE | 2017-05-07 17:34 | CP.PCM.PN ---
Subjective - Date & Time of Evaluation Date of Evaluation: 05/07/17 Time of Evaluation: 10:00 - Subjective Subjective: Patient had Left Hydrocelectomy and Left Orchiectomy today. Patient denies any Chest Pain, SOB, Palpitations. Objective - Vital Signs/Intake and Output Vital Signs (last 24 hours): Temp Pulse Resp BP Pulse Ox 97.6 F 83 18 119/69 96 05/07/17 16:00 05/07/17 16:00 05/07/17 16:00 05/07/17 16:00 05/07/17 16:00 Intake and Output: 05/07/17 05/07/17 06:59 18:59 Intake Total 540 360 Output Total 1 800 Balance 539 -440 - Medications Medications: Current Medications Donepezil HCl (Aricept) 5 mg PO HS [facility] Last Admin: 05/06/17 22:08 Dose: 5 mg Heparin Sodium (Porcine) (Heparin) 5,000 units SC Q12 [facility] PRN Reason: Protocol Last Admin: 05/07/17 10:58 Dose: 5,000 units Ceftriaxone Sodium (Rocephin 1 Gram Ivpb) 1 gm in 100 mls @ 100 mls/hr IVPB DAILY [facility] PRN Reason: Protocol Last Admin: 05/06/17 09:24 Dose: 100 mls/hr Ketorolac Tromethamine (Toradol) 15 mg IVP Q8H PRN PRN Reason: Pain, moderate (4-7) Metoclopramide HCl (Reglan) 10 mg IV ONCE PRN PRN Reason: Nausea/Vomiting Morphine Sulfate (Morphine) 2 mg IVP Q15M PRN PRN Reason: Pain, moderate (4-7) Pantoprazole Sodium (Protonix Ec Tab) 40 mg PO 0600 [facility] Last Admin: 05/07/17 05:37 Dose: 40 mg - Labs Labs: 05/07/17 07:00 05/07/17 07:00 PT 10.3 Seconds (9.9-11.8) 05/05/17 07:00 INR 0.95 (0.93-1.08) 05/05/17 07:00 APTT 29.9 Seconds (23.7-30.8) 05/05/17 07:00 - Head Exam Head Exam: NORMOCEPHALIC - Eye Exam Additional comments: Conjunctiva Normal. Pupils Normal. - ENT Exam ENT Exam: Mucous Membranes Moist, Normal Exam - Neck Exam Neck Exam: Full ROM, Normal Inspection. absent: Lymphadenopathy - Respiratory Exam Respiratory Exam: Clear to Ausculation Bilateral, NORMAL BREATHING PATTERN - Cardiovascular Exam Cardiovascular Exam: REGULAR RHYTHM, +S1, +S2 - GI/Abdominal Exam GI & Abdominal Exam: Soft, Normal Bowel Sounds - Exam Additional comments: Left Hydrocelectomy and Left Orchiectomy. - Extremities Exam Extremities Exam: Normal Inspection Assessment and Plan - Assessment and Plan (Free Text) Assessment: Status Post Left Hydrocelectomy and Left Orchiectomy. Plan: Clinically Cardiac Status Stable. Continue Rocephin, Heparin and Analdesic.
--- NOTE | 2017-05-07 17:39 | CP.PCM.PN ---
<MIRIAN VELEZ - Last Filed: 05/07/17 17:55> Subjective - Date & Time of Evaluation Date of Evaluation: 05/07/17 Time of Evaluation: 11:55 - Subjective Subjective: Medicine Progress Note: Pt seen and assessed at bedside. Pt recently back from OR for hydronephrectomy with no complaints. Pt denies SOB, chest pain, fever, headache, pain with urination or nausea/vomiting. Objective - Vital Signs/Intake and Output Vital Signs (last 24 hours): Temp Pulse Resp BP Pulse Ox 97.6 F 83 18 119/69 96 05/07/17 16:00 05/07/17 16:00 05/07/17 16:00 05/07/17 16:00 05/07/17 16:00 Intake and Output: 05/07/17 05/07/17 06:59 18:59 Intake Total 540 360 Output Total 1 800 Balance 539 -440 - Medications Medications: Current Medications Donepezil HCl (Aricept) 5 mg PO HS [facility] Last Admin: 05/06/17 22:08 Dose: 5 mg Heparin Sodium (Porcine) (Heparin) 5,000 units SC Q12 [facility] PRN Reason: Protocol Last Admin: 05/07/17 10:58 Dose: 5,000 units Ceftriaxone Sodium (Rocephin 1 Gram Ivpb) 1 gm in 100 mls @ 100 mls/hr IVPB DAILY [facility] PRN Reason: Protocol Last Admin: 05/06/17 09:24 Dose: 100 mls/hr Ketorolac Tromethamine (Toradol) 15 mg IVP Q8H PRN PRN Reason: Pain, moderate (4-7) Metoclopramide HCl (Reglan) 10 mg IV ONCE PRN PRN Reason: Nausea/Vomiting Morphine Sulfate (Morphine) 2 mg IVP Q15M PRN PRN Reason: Pain, moderate (4-7) Pantoprazole Sodium (Protonix Ec Tab) 40 mg PO 0600 [facility] Last Admin: 05/07/17 05:37 Dose: 40 mg - Labs Labs: 05/07/17 07:00 05/07/17 07:00 PT 10.3 Seconds (9.9-11.8) 05/05/17 07:00 INR 0.95 (0.93-1.08) 05/05/17 07:00 APTT 29.9 Seconds (23.7-30.8) 05/05/17 07:00 - Constitutional Appears: No Acute Distress - Head Exam Head Exam: NORMAL INSPECTION, NORMOCEPHALIC - Eye Exam Eye Exam: EOMI, Normal appearance - ENT Exam ENT Exam: Mucous Membranes Moist, Normal Exam - Neck Exam Neck Exam: Full ROM - Respiratory Exam Respiratory Exam: Clear to Ausculation Bilateral, NORMAL BREATHING PATTERN. absent: Rales, Rhonchi, Wheezes - Cardiovascular Exam Cardiovascular Exam: REGULAR RHYTHM, +S1, +S2. absent: Murmur - GI/Abdominal Exam GI & Abdominal Exam: absent: Distended, Tenderness - Extremities Exam Extremities Exam: absent: Calf Tenderness, Joint Swelling - Neurological Exam Neurological Exam: Alert, Awake - Psychiatric Exam Psychiatric exam: Normal Affect, Normal Mood - Skin Skin Exam: Dry, Intact, Normal Color Additional comments: Dressing with pelvic binder in place over entire groin. Assessment and Plan - Assessment and Plan (Free Text) Assessment: 89 yo male with history of dementia and CVA admitted with testicular swelling/ mass 1. Testicular mass/acute epididymitis -hydrocelectomy done today; left testicle and part of left spermatic cord removed d/t infection, per urology -pt currently stable with no post-op complications -pt started on levofloxacin 500mg PO for 10 days -pain controlled with toradol 2. Nephrolithiasis -pt continues to be asymptomatic -will continue to monitor -will consider alpha ish/IV fluids if pt becomes symptomatic 3. UTI -continue rocephin 4. Left sided low back pain -pain controlled with toradol 5. GI/DVT ppx -protonix/heparin Patient seen and case discussed with attending physician, Dr. Branham. <Billy Branham - Last Filed: 05/08/17 06:41> Objective - Vital Signs/Intake and Output Vital Signs (last 24 hours): Temp Pulse Resp BP Pulse Ox 99.0 F 82 20 124/60 98 05/08/17 00:00 05/08/17 00:00 05/08/17 00:00 05/08/17 00:00 05/08/17 00:00 Intake and Output: 05/07/17 05/08/17 18:59 06:59 Intake Total 360 540 Output Total 800 1000 Balance -440 -460 - Medications Medications: Current Medications Donepezil HCl (Aricept) 5 mg PO HS [facility] Last Admin: 05/07/17 21:11 Dose: 5 mg Heparin Sodium (Porcine) (Heparin) 5,000 units SC Q12 [facility] PRN Reason: Protocol Last Admin: 05/07/17 21:11 Dose: 5,000 units Ceftriaxone Sodium (Rocephin 1 Gram Ivpb) 1 gm in 100 mls @ 100 mls/hr IVPB DAILY [facility] PRN Reason: Protocol Last Admin: 05/06/17 09:24 Dose: 100 mls/hr Ketorolac Tromethamine (Toradol) 15 mg IVP Q8H PRN PRN Reason: Pain, moderate (4-7) Levofloxacin (Levaquin) 250 mg PO DAILY [facility] Metoclopramide HCl (Reglan) 10 mg IV ONCE PRN PRN Reason: Nausea/Vomiting Morphine Sulfate (Morphine) 2 mg IVP Q15M PRN PRN Reason: Pain, moderate (4-7) Pantoprazole Sodium (Protonix Ec Tab) 40 mg PO 0600 [facility] Last Admin: 05/08/17 05:22 Dose: 40 mg - Labs Labs: 05/07/17 07:00 05/07/17 07:00 PT 10.3 Seconds (9.9-11.8) 05/05/17 07:00 INR 0.95 (0.93-1.08) 05/05/17 07:00 APTT 29.9 Seconds (23.7-30.8) 05/05/17 07:00 Attending/Attestation - Attestation I have personally seen and examined this patient.: Yes I have fully participated in the care of the patient.: Yes I have reviewed all pertinent clinical information, including history, physical exam and plan: Yes Notes (Text): 05/07/17 89 year old male with past medical history of dementia and CVA who presented with complaint of testicular pain and swelling. Testicular US showed epididymitis/cyst and CT abd/pelvis showed large fluid collection. Abdominal xray also showed 9 mm and 3 mm stone. He was seen by urology and is s/p urological procedure as above today. Pelvic binder is in place. Case was discussed with Dr. Gil today. Continue with antibiotics. He also complained of low back pain s/p fall from bed at home. He is on toradol prn for pain. PT evaluation was appreciated who recommended ZEB. Will discuss with senior case manager / psychosocial rehabilitation counselor. Billy Branham MD Hospitalist.
[2017-05-07] MEDS ORDERED: levoFLOXacin 500 MG TAB PO ONE (17:45)
[2017-05-08] MEDS: Pantoprazole 40 mg EC Tab PO SCH (05:22)
[2017-05-08 08:22] VITALS: O2SAT 96
[2017-05-08 08:47] LABS: BASO # 0.02 K/mm3 (0.0-2.0); BASO % 0.2 % (0.0-3.0); EOS % 0.2 % (1.5-5.0); GRAN # 6.87 (1.4-6.5); GRAN % 82.5 % (50.0-68.0); HEMOGLOBIN 10.3 gm/dL (14.0-18.0); LYMPH # 0.8 (1.2-3.4); LYMPH % 9.4 % (22.0-35.0); MEAN CELL VOLUME 94.9 fL (80.0-105.0); MEAN CORPUSCULAR HGB CONC 32.7 g/dl (31.0-37.0); MEAN PLATELET VOLUME 9.7 fl (7.0-11.0); MONO # 0.6 (0.1-0.6); MONO % 7.7 % (1.0-6.0); PLATELET COUNT 213 10^3/uL (120.0-450.0); RBC 3.32 10^6/uL (3.5-6.1); RED CELL DISTRIBUTION WIDTH 13.1 % (11.5-14.5); WHITE BLOOD COUNT 8.3 10^3/ul (4.5-11.0)
[2017-05-08 08:51] LABS: ALB/GLOB RATIO 1.1 (1.1-1.8); ALBUMIN 3.3 g/dL (3.0-4.8); ALT/SGPT 43 U/L (7-56); AST/SGOT 29 U/L (15-59); BLOOD UREA NITROGEN 20 mg/dL (7-21); GFR AFRICAN-AMERICAN > 60; GFR NON-AFRICAN AMERICAN > 60
--- NOTE | 2017-05-08 09:47 | CP.PCM.PN ---
Subjective - Date & Time of Evaluation Date of Evaluation: 05/08/17 Time of Evaluation: 08:45 - Subjective Subjective: S/p surgery yesterday, C/o pain at operative site. No chest pain, no SOB Objective - Vital Signs/Intake and Output Vital Signs (last 24 hours): Temp Pulse Resp BP Pulse Ox 99.2 F 76 18 112/59 L 96 05/08/17 08:21 05/08/17 08:21 05/08/17 08:21 05/08/17 08:21 05/08/17 08:21 Intake and Output: 05/08/17 05/08/17 06:59 18:59 Intake Total 540 Output Total 1000 Balance -460 - Medications Medications: Current Medications Donepezil HCl (Aricept) 5 mg PO HS [facility] Last Admin: 05/07/17 21:11 Dose: 5 mg Heparin Sodium (Porcine) (Heparin) 5,000 units SC Q12 [facility] PRN Reason: Protocol Last Admin: 05/07/17 21:11 Dose: 5,000 units Ketorolac Tromethamine (Toradol) 15 mg IVP Q8H PRN PRN Reason: Pain, moderate (4-7) Levofloxacin (Levaquin) 250 mg PO DAILY [facility] Metoclopramide HCl (Reglan) 10 mg IV ONCE PRN PRN Reason: Nausea/Vomiting Morphine Sulfate (Morphine) 2 mg IVP Q15M PRN PRN Reason: Pain, moderate (4-7) Pantoprazole Sodium (Protonix Ec Tab) 40 mg PO 0600 [facility] Last Admin: 05/08/17 05:22 Dose: 40 mg - Labs Labs: 05/08/17 07:50 05/08/17 07:50 PT 10.3 Seconds (9.9-11.8) 05/05/17 07:00 INR 0.95 (0.93-1.08) 05/05/17 07:00 APTT 29.9 Seconds (23.7-30.8) 05/05/17 07:00 - Constitutional Appears: Non-toxic - Head Exam Head Exam: ATRAUMATIC - Eye Exam Eye Exam: Normal appearance - ENT Exam ENT Exam: Mucous Membranes Moist - Neck Exam Neck Exam: Full ROM - Respiratory Exam Respiratory Exam: Clear to Ausculation Bilateral - Cardiovascular Exam Cardiovascular Exam: REGULAR RHYTHM - GI/Abdominal Exam GI & Abdominal Exam: Soft Assessment and Plan - Assessment and Plan (Free Text) Assessment: S/p testicular mass S/p left orchiectomy and surgery for hydrocel post op pain no Chest pain, SOB Plan: Coniiue post op care [facility] stable.will follow.
[2017-05-08] MEDS ORDERED: Magnesium Hydroxide Susp 30 ml UD PO ONE (14:23)
--- NOTE | 2017-05-08 14:56 | CP.PCM.PN ---
<MIRIAN VELEZ - Last Filed: 05/08/17 14:50> Subjective - Date & Time of Evaluation Date of Evaluation: 05/08/17 Time of Evaluation: 08:50 - Subjective Subjective: Pt seen and assessed at bedside. Pt had no new complaints this morning. Pt denies SOB, chest pain, fever, headache, pain with urination, abdominal pain, nausea/vomiting or diarrhea. Objective - Vital Signs/Intake and Output Vital Signs (last 24 hours): Temp Pulse Resp BP Pulse Ox 99.2 F 76 18 112/59 L 96 05/08/17 08:21 05/08/17 08:21 05/08/17 08:21 05/08/17 08:21 05/08/17 08:21 Intake and Output: 05/08/17 05/08/17 06:59 18:59 Intake Total 540 Output Total 1000 Balance -460 - Medications Medications: Current Medications Docusate Sodium (Colace) 100 mg PO BID PRN PRN Reason: Constipation Donepezil HCl (Aricept) 5 mg PO HS [facility] Last Admin: 05/07/17 21:11 Dose: 5 mg Heparin Sodium (Porcine) (Heparin) 5,000 units SC Q12 KAMLESH PRN Reason: Protocol Last Admin: 05/08/17 09:57 Dose: 5,000 units Ketorolac Tromethamine (Toradol) 15 mg IVP Q8H PRN PRN Reason: Pain, moderate (4-7) Levofloxacin (Levaquin) 250 mg PO DAILY [facility] Last Admin: 05/08/17 09:57 Dose: 250 mg Metoclopramide HCl (Reglan) 10 mg IV ONCE PRN PRN Reason: Nausea/Vomiting Morphine Sulfate (Morphine) 2 mg IVP Q15M PRN PRN Reason: Pain, moderate (4-7) Pantoprazole Sodium (Protonix Ec Tab) 40 mg PO 0600 [facility] Last Admin: 05/08/17 05:22 Dose: 40 mg - Labs Labs: 05/08/17 07:50 05/08/17 07:50 PT 10.3 Seconds (9.9-11.8) 05/05/17 07:00 INR 0.95 (0.93-1.08) 05/05/17 07:00 APTT 29.9 Seconds (23.7-30.8) 05/05/17 07:00 - Constitutional Appears: No Acute Distress - Head Exam Head Exam: ATRAUMATIC, NORMAL INSPECTION, NORMOCEPHALIC - Eye Exam Eye Exam: EOMI, Normal appearance - ENT Exam ENT Exam: Mucous Membranes Moist, Normal Exam - Neck Exam Neck Exam: Full ROM - Respiratory Exam Respiratory Exam: Clear to Ausculation Bilateral, NORMAL BREATHING PATTERN. absent: Rales, Rhonchi, Wheezes - Cardiovascular Exam Cardiovascular Exam: REGULAR RHYTHM, RRR. absent: +S1, +S2 - GI/Abdominal Exam GI & Abdominal Exam: absent: Distended, Soft, Tenderness - Exam Additional comments: Dressing with pelvic binder in place over entire groin. Surgical incision site with no drainage and minimal erythema. - Extremities Exam Extremities Exam: absent: Calf Tenderness, Pedal Edema - Psychiatric Exam Psychiatric exam: Normal Affect, Normal Mood - Skin Skin Exam: Dry, Intact, Normal Color, Warm Assessment and Plan - Assessment and Plan (Free Text) Assessment: 89 yo male with history of dementia and CVA admitted with testicular swelling/ mass 1. Testicular mass/acute epididymitis -hydrocelectomy done 05/07; left testicle and part of left spermatic cord removed d/t infection, per urology -pt currently stable with no post-op complications -pt started on levofloxacin 500mg PO for 10 days -pain controlled with toradol -recommended that patient be sent to rehab facility upon discharge, per PT recommendations -awaiting urology approval for discharge disposition 3. Nephrolithiasis -pt continues to be asymptomatic -will continue to monitor -will consider alpha ish/IV fluids if pt becomes symptomatic 4. UTI -continue rocephin 5. Left sided low back pain -pain controlled with toradol 6. GI/DVT ppx -protonix/heparin Patient seen and case discussed with attending, Dr. Branham <Billy Branham - Last Filed: 05/08/17 16:36> Objective - Vital Signs/Intake and Output Vital Signs (last 24 hours): Temp Pulse Resp BP Pulse Ox 99.2 F 76 18 112/59 L 96 05/08/17 08:21 05/08/17 08:21 05/08/17 08:21 05/08/17 08:21 05/08/17 08:21 Intake and Output: 05/08/17 05/08/17 06:59 18:59 Intake Total 540 960 Output Total 1000 700 Balance -460 260 - Medications Medications: Current Medications Docusate Sodium (Colace) 100 mg PO BID PRN PRN Reason: Constipation Donepezil HCl (Aricept) 5 mg PO HS [facility] Last Admin: 05/07/17 21:11 Dose: 5 mg Heparin Sodium (Porcine) (Heparin) 5,000 units SC Q12 KAMLESH PRN Reason: Protocol Last Admin: 05/08/17 09:57 Dose: 5,000 units Ketorolac Tromethamine (Toradol) 15 mg IVP Q8H PRN PRN Reason: Pain, moderate (4-7) Levofloxacin (Levaquin) 250 mg PO DAILY [facility] Last Admin: 05/08/17 09:57 Dose: 250 mg Metoclopramide HCl (Reglan) 10 mg IV ONCE PRN PRN Reason: Nausea/Vomiting Morphine Sulfate (Morphine) 2 mg IVP Q15M PRN PRN Reason: Pain, moderate (4-7) Pantoprazole Sodium (Protonix Ec Tab) 40 mg PO 0600 [facility] Last Admin: 05/08/17 05:22 Dose: 40 mg - Labs Labs: 05/08/17 07:50 05/08/17 07:50 PT 10.3 Seconds (9.9-11.8) 05/05/17 07:00 INR 0.95 (0.93-1.08) 05/05/17 07:00 APTT 29.9 Seconds (23.7-30.8) 05/05/17 07:00 Attending/Attestation - Attestation I have personally seen and examined this patient.: Yes I have fully participated in the care of the patient.: Yes I have reviewed all pertinent clinical information, including history, physical exam and plan: Yes Notes (Text): 05/08/17 16:35 89 year old male with past medical history of dementia and CVA who presented with complaint of testicular pain and swelling. Testicular US showed epididymitis/cyst and CT abd/pelvis showed large fluid collection. Abdominal xray also showed 9 mm and 3 mm stone. He was seen by urology and is s/p urological procedure POD # 1. Continue with antibiotics. Urology will follow up today to possibly remove drain and coleman. He also complained of low back pain s/p fall from bed at home. He is on toradol prn for pain. PT evaluation was appreciated who recommended [facility]. D/c planning to [facility] once bed is available. Patient is to follow up with his pmd and with urology. Billy Branham MD Hospitalist.
--- NOTE | 2017-05-08 17:22 | CP.PCM.DIS ---
<MIRIAN VELEZ - Last Filed: 05/08/17 17:39> Provider - Provider Date of Admission: 05/05/17 14:32 Attending physician: Billy Branham MD Primary care physician: Lidia Peguero MD Consults: Urology: Dr. Gil Cardiology: Dr. Hussein Time Spent in preparation of Discharge (in minutes): 51 Hospital Course - Lab Results Lab Results: Micro Results 05/05/17 20:45 Urine,Clean Catch Urine Culture - Final No Growth (<1,000 CFU/ML) Most Recent Lab Values WBC 8.3 10^3/ul (4.5-11.0) 05/08/17 07:50 RBC 3.32 10^6/uL (3.5-6.1) L 05/08/17 07:50 Hgb 10.3 gm/dL (14.0-18.0) L 05/08/17 07:50 Hct 31.5 % (42.0-52.0) L 05/08/17 07:50 MCV 94.9 fL (80.0-105.0) 05/08/17 07:50 MCH 31.0 pg (25.0-35.0) 05/08/17 07:50 MCHC 32.7 g/dl (31.0-37.0) 05/08/17 07:50 RDW 13.1 % (11.5-14.5) 05/08/17 07:50 Plt Count 213 10^3/uL (120.0-450.0) 05/08/17 07:50 MPV 9.7 fl (7.0-11.0) 05/08/17 07:50 Gran % 82.5 % (50.0-68.0) H 05/08/17 07:50 Lymph % (Auto) 9.4 % (22.0-35.0) L 05/08/17 07:50 Lamar % (Auto) 7.7 % (1.0-6.0) H 05/08/17 07:50 Eos % (Auto) 0.2 % (1.5-5.0) L 05/08/17 07:50 Baso % (Auto) 0.2 % (0.0-3.0) 05/08/17 07:50 Gran # 6.87 (1.4-6.5) H 05/08/17 07:50 Lymph # 0.8 (1.2-3.4) L 05/08/17 07:50 Lamar # 0.6 (0.1-0.6) 05/08/17 07:50 Eos # 0.0 (0.0-0.7) 05/08/17 07:50 Baso # 0.02 K/mm3 (0.0-2.0) 05/08/17 07:50 PT 10.3 Seconds (9.9-11.8) 05/05/17 07:00 INR 0.95 (0.93-1.08) 05/05/17 07:00 APTT 29.9 Seconds (23.7-30.8) 05/05/17 07:00 pO2 29 mm/Hg (30-55) L 05/03/17 19:00 VBG pH 7.37 (7.32-7.43) 05/03/17 19:00 VBG pCO2 50.0 (40-60) 05/03/17 19:00 VBG HCO3 28.9 mmol/l (21-28) H 05/03/17 19:00 VBG O2 Sat (Calc) 58.3 % (40-65) 05/03/17 19:00 VBG Base Excess 2.9 mmol/L (0.0-2.0) H 05/03/17 19:00 Sodium 133 mmol/L (132-148) 05/08/17 07:50 Potassium 4.4 mmol/L (3.6-5.0) 05/08/17 07:50 Chloride 98 mmol/L (95-110) 05/08/17 07:50 Carbon Dioxide 31 mmol/L (21-33) 05/08/17 07:50 Anion Gap 8 (10-20) L 05/08/17 07:50 BUN 20 mg/dL (7-21) 05/08/17 07:50 Creatinine 0.6 mg/dL (0.5-1.4) 05/08/17 07:50 Est GFR ( Amer) > 60 05/08/17 07:50 Est GFR (Non-Af Amer) > 60 05/08/17 07:50 Random Glucose 106 mg/dL (70-110) 05/08/17 07:50 Hemoglobin A1c 5.8 % (4.2-6.5) 05/07/17 07:00 Calcium 9.0 mg/dL (8.4-10.5) 05/08/17 07:50 Phosphorus 3.6 mg/dL (2.5-4.5) 05/07/17 07:00 Magnesium 2.0 mg/dL (1.7-2.2) 05/07/17 07:00 Iron 28 ug/dL (45-180) L 05/04/17 06:00 TIBC 230 ug/dL (261-462) L 05/04/17 06:00 % Saturation 12 % (20-55) L 05/04/17 06:00 Ferritin 130.0 ng/mL 05/04/17 06:00 Total Bilirubin 0.3 mg/dL (0.2-1.3) 05/08/17 07:50 AST 29 U/L (15-59) 05/08/17 07:50 ALT 43 U/L (7-56) 05/08/17 07:50 Alkaline Phosphatase 100 U/L (38-133) 05/08/17 07:50 Total Protein 6.5 g/dL (5.8-8.3) 05/08/17 07:50 Albumin 3.3 g/dL (3.0-4.8) 05/08/17 07:50 Globulin 3.1 gm/dL 05/08/17 07:50 Albumin/Globulin Ratio 1.1 (1.1-1.8) 05/08/17 07:50 Triglycerides 75 mg/dL (35-160) 05/07/17 07:00 Cholesterol 149 mg/dL (130-200) 05/07/17 07:00 LDL Cholesterol Direct 75 mg/dL (0-129) 05/07/17 07:00 HDL Cholesterol 53 mg/dL (29-60) 05/07/17 07:00 Free PSA 0.3 ng/mL 05/05/17 12:35 % Free PSA 5 Percent (>25) L 05/05/17 12:35 Total PSA 5.8 ng/mL (<=4.0) H 05/05/17 12:35 Prostate Cancer Risk 56 Percent 05/05/17 12:35 Vitamin B12 478 pg/mL (239-931) 05/04/17 06:00 Folate 12.0 ng/mL 05/04/17 06:00 Procalcitonin 0.46 NG/ML (0.19-0.49) 05/04/17 06:00 TSH 3rd Generation 1.78 mIU/mL (0.46-4.68) 05/07/17 07:00 Urine Color Yellow (YELLOW) 05/03/17 18:30 Urine Appearance Sl cloudy (CLEAR) 05/03/17 18:30 Urine pH 6.5 (4.7-8.0) 05/03/17 18:30 Ur Specific Grover 1.020 (1.005-1.035) 05/03/17 18:30 Urine Protein Trace mg/dL (<30 mg/dL) H 05/03/17 18:30 Urine Glucose (UA) Negative mg/dL (NEGATIVE) 05/03/17 18:30 Urine Ketones 15 mg/dL (NEGATIVE) H 05/03/17 18:30 Urine Blood Moderate (NEGATIVE) H 05/03/17 18:30 Urine Nitrate Negative (NEGATIVE) 05/03/17 18:30 Urine Bilirubin Negative (NEGATIVE) 05/03/17 18:30 Urine Urobilinogen 0.2 E.U./dL (<1 E.U./dL) 05/03/17 18:30 Ur Leukocyte Esterase Negative Shauna/uL (NEGATIVE) 05/03/17 18:30 Urine RBC 15 - 20 /hpf (0-2) 05/03/17 18:30 Urine WBC 15 - 20 /hpf (0-6) 05/03/17 18:30 Ur Epithelial Cells 6 - 8 /hpf (0-5) 05/03/17 18:30 Urine Bacteria Mod (NEG) 05/03/17 18:30 - Hospital Course Hospital Course: 89 year old male with history of dementia and CVA that presents with a chief complaint of testicular pain and swelling. He was seen by his urologist who recommended he come to the emergency room due to concerns of a possible incarcerated hernia. Testicular duplex was ordered and revealed a "large avascular heterogeneous left scrotal mass, possibly hematoma; hyperemic left testis, no torsion; cystic right scrotal lesion possibly hydrocele of the cord unchanged compared with the prior study; right paratesticular nodule unchanged compared with the prior study, no right torsion". Patient was admitted for urologic evaluation. Patient had also fallen out of bed prior to his arrival to the ED but lumbar spine and head CT both were negative. Lab values revealed that patient had a UTI and was started on Ceftriaxone. A CT abdomen/pelvis showed a large fluid collection, which an ultrasound showed to be complex cyst arising from epididymis. Urology then decided that an hydrocelectomy and orchiectomy was necessary and performed this procedure without complications. Patient was then switched to oral Levofloxacin for treatment of epididymitis discovered during patients surgical procedure. - Date & Time of H&P Date of H&P: 05/04/17 Time of H&P: 00:35 Discharge Exam - Head Exam Head Exam: ATRAUMATIC, NORMAL INSPECTION, NORMOCEPHALIC - Eye Exam Eye Exam: EOMI, Normal appearance - ENT Exam ENT Exam: Mucous Membranes Moist, Normal Exam - Neck Exam Neck exam: Full Rom - Respiratory Exam Respiratory Exam: NORMAL BREATHING PATTERN, UNREMARKABLE. absent: Rales, Rhonchi, Wheezes, Respiratory Distress - Cardiovascular Exam Cardiovascular Exam: REGULAR RHYTHM, RRR, +S1, +S2. absent: Irregular Rhythm - GI/Abdominal Exam GI & Abdominal Exam: absent: Tenderness - Extremities Exam Additional comments: no calf tenderness or lower extremity edema - Neurological Exam Neurological exam: Alert, Oriented x3 - Psychiatric Exam Psychiatric exam: Normal Affect, Normal Mood - Skin Skin Exam: Dry, Intact, Normal Color, Warm - Additional Findings Additional findings: Dressing with pelvic binder in place over entire groin. Surgical incision site with no drainage and minimal erythema. Coleman removed. Discharge Plan - Discharge Medications Prescriptions: levoFLOXacin [Levaquin] 500 mg PO DAILY #9 tab - Follow Up Plan Condition: FAIR Disposition: TRANSF TO SNF Instructions: Orchiectomy (DC), Pain Management After Surgery (DC), Back Pain ( GEN) Additional Instructions: PT to [facility] for continued Physical Therapy. PT to follow up with Dr. Gil post surgery. Continue to take Levofloxacin for the remainder of the 10 day course, which ends on 05/17/2017. Referrals: Lidia Peguero MD [Primary Care Provider] - Ben Gil MD [Staff Provider] - <Billy Branham - Last Filed: 05/09/17 12:31> Provider - Provider Date of Admission: 05/05/17 14:32 Attending physician: Billy Branham MD Primary care physician: Lidia Peguero MD Hospital Course - Lab Results Lab Results: Micro Results 05/07/17 09:58 Scrotum Gram Stain - Final 05/07/17 09:58 Scrotum Wound Culture - Preliminary Gram Negative Yomi 05/05/17 20:45 Urine,Clean Catch Urine Culture - Final No Growth (<1,000 CFU/ML) Most Recent Lab Values WBC 8.3 10^3/ul (4.5-11.0) 05/08/17 07:50 RBC 3.32 10^6/uL (3.5-6.1) L 05/08/17 07:50 Hgb 10.3 gm/dL (14.0-18.0) L 05/08/17 07:50 Hct 31.5 % (42.0-52.0) L 05/08/17 07:50 MCV 94.9 fL (80.0-105.0) 05/08/17 07:50 MCH 31.0 pg (25.0-35.0) 05/08/17 07:50 MCHC 32.7 g/dl (31.0-37.0) 05/08/17 07:50 RDW 13.1 % (11.5-14.5) 05/08/17 07:50 Plt Count 213 10^3/uL (120.0-450.0) 05/08/17 07:50 MPV 9.7 fl (7.0-11.0) 05/08/17 07:50 Gran % 82.5 % (50.0-68.0) H 05/08/17 07:50 Lymph % (Auto) 9.4 % (22.0-35.0) L 05/08/17 07:50 Lamar % (Auto) 7.7 % (1.0-6.0) H 05/08/17 07:50 Eos % (Auto) 0.2 % (1.5-5.0) L 05/08/17 07:50 Baso % (Auto) 0.2 % (0.0-3.0) 05/08/17 07:50 Gran # 6.87 (1.4-6.5) H 05/08/17 07:50 Lymph # 0.8 (1.2-3.4) L 05/08/17 07:50 Lamar # 0.6 (0.1-0.6) 05/08/17 07:50 Eos # 0.0 (0.0-0.7) 05/08/17 07:50 Baso # 0.02 K/mm3 (0.0-2.0) 05/08/17 07:50 PT 10.3 Seconds (9.9-11.8) 05/05/17 07:00 INR 0.95 (0.93-1.08) 05/05/17 07:00 APTT 29.9 Seconds (23.7-30.8) 05/05/17 07:00 pO2 29 mm/Hg (30-55) L 05/03/17 19:00 VBG pH 7.37 (7.32-7.43) 05/03/17 19:00 VBG pCO2 50.0 (40-60) 05/03/17 19:00 VBG HCO3 28.9 mmol/l (21-28) H 05/03/17 19:00 VBG O2 Sat (Calc) 58.3 % (40-65) 05/03/17 19:00 VBG Base Excess 2.9 mmol/L (0.0-2.0) H 05/03/17 19:00 Sodium 133 mmol/L (132-148) 05/08/17 07:50 Potassium 4.4 mmol/L (3.6-5.0) 05/08/17 07:50 Chloride 98 mmol/L (95-110) 05/08/17 07:50 Carbon Dioxide 31 mmol/L (21-33) 05/08/17 07:50 Anion Gap 8 (10-20) L 05/08/17 07:50 BUN 20 mg/dL (7-21) 05/08/17 07:50 Creatinine 0.6 mg/dL (0.5-1.4) 05/08/17 07:50 Est GFR ( Amer) > 60 05/08/17 07:50 Est GFR (Non-Af Amer) > 60 05/08/17 07:50 Random Glucose 106 mg/dL (70-110) 05/08/17 07:50 Hemoglobin A1c 5.8 % (4.2-6.5) 05/07/17 07:00 Calcium 9.0 mg/dL (8.4-10.5) 05/08/17 07:50 Phosphorus 3.6 mg/dL (2.5-4.5) 05/07/17 07:00 Magnesium 2.0 mg/dL (1.7-2.2) 05/07/17 07:00 Iron 28 ug/dL (45-180) L 05/04/17 06:00 TIBC 230 ug/dL (261-462) L 05/04/17 06:00 % Saturation 12 % (20-55) L 05/04/17 06:00 Ferritin 130.0 ng/mL 05/04/17 06:00 Total Bilirubin 0.3 mg/dL (0.2-1.3) 05/08/17 07:50 AST 29 U/L (15-59) 05/08/17 07:50 ALT 43 U/L (7-56) 05/08/17 07:50 Alkaline Phosphatase 100 U/L (38-133) 05/08/17 07:50 Total Protein 6.5 g/dL (5.8-8.3) 05/08/17 07:50 Albumin 3.3 g/dL (3.0-4.8) 05/08/17 07:50 Globulin 3.1 gm/dL 05/08/17 07:50 Albumin/Globulin Ratio 1.1 (1.1-1.8) 05/08/17 07:50 Triglycerides 75 mg/dL (35-160) 05/07/17 07:00 Cholesterol 149 mg/dL (130-200) 05/07/17 07:00 LDL Cholesterol Direct 75 mg/dL (0-129) 05/07/17 07:00 HDL Cholesterol 53 mg/dL (29-60) 05/07/17 07:00 Free PSA 0.3 ng/mL 05/05/17 12:35 % Free PSA 5 Percent (>25) L 05/05/17 12:35 Total PSA 5.8 ng/mL (<=4.0) H 05/05/17 12:35 Prostate Cancer Risk 56 Percent 05/05/17 12:35 Vitamin B12 478 pg/mL (239-931) 05/04/17 06:00 Folate 12.0 ng/mL 05/04/17 06:00 Procalcitonin 0.46 NG/ML (0.19-0.49) 05/04/17 06:00 TSH 3rd Generation 1.78 mIU/mL (0.46-4.68) 05/07/17 07:00 Urine Color Yellow (YELLOW) 05/03/17 18:30 Urine Appearance Sl cloudy (CLEAR) 05/03/17 18:30 Urine pH 6.5 (4.7-8.0) 05/03/17 18:30 Ur Specific Grover 1.020 (1.005-1.035) 05/03/17 18:30 Urine Protein Trace mg/dL (<30 mg/dL) H 05/03/17 18:30 Urine Glucose (UA) Negative mg/dL (NEGATIVE) 05/03/17 18:30 Urine Ketones 15 mg/dL (NEGATIVE) H 05/03/17 18:30 Urine Blood Moderate (NEGATIVE) H 05/03/17 18:30 Urine Nitrate Negative (NEGATIVE) 05/03/17 18:30 Urine Bilirubin Negative (NEGATIVE) 05/03/17 18:30 Urine Urobilinogen 0.2 E.U./dL (<1 E.U./dL) 05/03/17 18:30 Ur Leukocyte Esterase Negative Shauna/uL (NEGATIVE) 05/03/17 18:30 Urine RBC 15 - 20 /hpf (0-2) 05/03/17 18:30 Urine WBC 15 - 20 /hpf (0-6) 05/03/17 18:30 Ur Epithelial Cells 6 - 8 /hpf (0-5) 05/03/17 18:30 Urine Bacteria Mod (NEG) 05/03/17 18:30 Attending/Attestation - Attestation I have personally seen and examined this patient.: Yes I have fully participated in the care of the patient.: Yes I have reviewed all pertinent clinical information, including history, physical exam and plan: Yes Notes (Text): 05/08/17 89 year old male with past medical history of dementia and CVA who presented with complaint of testicular pain and swelling. Testicular US showed epididymitis/cyst and CT abd/pelvis showed large fluid collection. Abdominal xray also showed 9 mm and 3 mm stone. He was seen by urology and is s/p urological procedure POD # 2. He is on antibiotics. Uolog will follow up today to remove his coleman and drain. Patient will be discharged to [facility]. Follow up with pmd. Follow up with urology. Billy Branham MD Hospitalist.
[2017-05-08 17:47] VITALS: BP 121/63; PULSE 87; RESP 19; TEMP 98
--- NOTE | 2017-05-09 09:55 | CARD ---
APPROVED REPORT EXAM: Two-dimensional and M-mode echocardiogram with Doppler and color Doppler. Other Information Quality : FairRhythm : INDICATION Pre-Op 2D DIMENSIONS IVSd0.8 (0.7-1.1cm)LVDd3.3 (3.9-5.9cm) PWd0.9 (0.7-1.1cm)LVDs1.9 (2.5-4.0cm) FS (%) 41.0 %LVEF (%)73.0 (>50%) M-Mode DIMENSIONS Aortic Root3.00 (2.2-3.7cm)Aortic Cusp Exc.1.50 (1.5-2.0cm) Aortic Valve AoV Peak Umajrgmm318.0cm/sAoV VTI26.6cmAO Peak GR.9mmHg LVOT Peak Qamtpucb967.0cm/sLVOT VTI23.20cmAO Mean GR.5mmHg Mitral Valve MV E Phnlwvya15.2cm/sMV A Meslmiwl02.4cm/sE/A ratio0.7 TDI Lateral E' Peak V8.77cm/sMedial E' Peak V6.92cm/sE/Lateral E'6.6 E/Medial E'8.4 Pulmonary Valve PV Peak Mdzlaqgh11.4cm/sPV Peak Grad.3mmHg Tricuspid Valve TR Peak Ujgiekvi280hl/sRAP [id number] Peak Gr.39mmHg LBOP20trWd LEFT VENTRICLE The left ventricle is normal size. There is normal left ventricular wall thickness. The left ventricular function is normal. The left ventricular ejection fraction is within the normal range. There is normal LV segmental wall motion. RIGHT VENTRICLE The right ventricle is not well visualized. ATRIA The left atrium size is normal. The right atrium size is normal. AORTIC VALVE The aortic valve is moderately calcified. MITRAL VALVE The mitral valve is normal in structure. TRICUSPID VALVE The tricuspid valve is not well visualized. There is moderate tricuspid regurgitation. There is moderate pulmonary hypertension. PULMONIC VALVE The pulmonic valve is not well visualized. GREAT VESSELS The aortic root is normal in size. PERICARDIAL EFFUSION There is no pericardial effusion. <Conclusion> This is a limited study. The left ventricle is normal size. There is normal left ventricular wall thickness. The left ventricular function is normal. The aortic valve is moderately calcified. Aortic sclerosis. There is moderate tricuspid regurgitation. There is moderate pulmonary hypertension.
--- NOTE | 2017-05-30 15:36 | OP ---
PROCEDURE DATE: 05/07/2017 PREOPERATIVE DIAGNOSES: Large scrotal mass, possible complicated hydrocele, possible infection, and possible abscess. POSTOPERATIVE DIAGNOSES: Large scrotal mass, possible complicated hydrocele, possible infection, possible abscess. It is complicated hydrocele with multiple septations and some kind of gelatinous material within the hydrocele sac, of unclear etiology, and a nonfunctioning left testicle, that was severely abnormal and concerning. PROCEDURE PERFORMED: Scrotal exploration, a left hydrocelectomy, removal of abnormal tissue, and a left orchiectomy. DRAINS: Aime drain. SURGEON: Santos Gil MD ESTIMATED BLOOD LOSS: Less than 20 mL. COMPLICATIONS: There are no complications. SPECIMEN SENT OUT: Gelatinous material, also hydrocele sac, and also the left testicle. At the termination of the procedure, we had achieved good hemostasis. We left drains in. INDICATIONS: See history and physical and consultation. Very pleasant gentleman, almost 89 years old, who is in the hospital with pain and discomfort in his groin area, who is here now for the above procedure. I discussed options, the risks, benefits, and alternatives with the patient and with the daughter. After discussing the options, the plan was for the above that I was going to explore and more likely I going to end up removing the testicle as rapidly as possible in this gentleman, who is almost 89 years old. Operative findings in the end suggested that this is some kind of hydrocele, infected perhaps, it is some kind of gelatinous material, it is not the usual hydrocele sac, but after doing procedure, this is what we found and this is what we had recommended and planned. DESCRIPTION OF PROCEDURE: After obtaining informed consent, the patient was placed on the table and discussed options with the patient's daughter, etc. The patient placed on the table. Routine monitors placed, time-out was called to confirm the patient's positioning. Antibiotics had been given. We now made an incision in the scrotum. I am not suspicious of testicular cancer and as rapidly as possible, dissected down to the hydrocele sac with my carpenter's assistant holding firmly. What we identified is a multiloculated sac of tissue and that we delivered this and actually opened it and it is a yellow gelatinous material, its slight, the fluid had congealed. This was sent off as specimen. We now dissected further. The testicles looked a little concerning and in terms of trying to develop normal planes for the hydrocele, there were just , I was concerned about its recurrence and recurrent pains and infections. So at this point, I transected the cord in a clamp-clamp style. Initially, we had good hemostasis. Once we did this, we then divided the cord. We delivered the specimen, which was basically the testicle with all of its contents. We now inspected carefully. We sutured ligated the cords, so that there will be no bleeding. We inspected carefully, we irrigated out the wound copiously actually to make sure there would be no leftover infectious process. Achieved hemostasis. We then closed the wound. We put 2 Aime drains from inferior position and we closed the wound in layers using Chromic sutures. Reinspection revealed good hemostasis. The patient tolerated procedure without complication and brought to recovery room in stable condition. I inserted a Cueva catheter just to make sure in the postoperative period the patient is able to void well. We will discuss further options. Santos Gil MD
== END 2017-05-08 20:00 | DRG 711 ==
LOC: ED 20:55 → ERH 23:02 → 3RNO 05-04 00:23 → OBSVTOIN 05-05 14:32
PROVIDERS: ADMIT Internal Medicine; ATTEND Internal Medicine
PROC: 0VTB0ZZ Resection of Left Testis, Open Approach (ICD-10-PCS; principal; 2017-05-07 08:30)
PROC: 0VBG0ZZ Excision of Left Spermatic Cord, Open Approach (ICD-10-PCS; 2017-05-07 08:30)
DX: N43.1 Infected hydrocele (principal); N45.4 Abscess of epididymis or testis; R64 Cachexia; N39.0 Urinary tract infection, site not specified; Z68.1 Body mass index [BMI] 19.9 or less, adult; F03.90 Unspecified dementia, unspecified severity, without behavioral disturbance, psychotic disturbance, mood disturbance, and anxiety; I25.10 Atherosclerotic heart disease of native coronary artery without angina pectoris; N20.0 Calculus of kidney; Z91.81 History of falling; Z86.73 Personal history of transient ischemic attack (TIA), and cerebral infarction without residual deficits; Z90.49 Acquired absence of other specified parts of digestive tract

== ENCOUNTER 2017-05-11 22:51 | Inpatient (IN) | payer MEDICARE, OTHER ==
[2017-05-11 22:52] VITALS: BMI 44.6
--- NOTE | 2017-05-11 23:04 | ED PDOC ---
Arrival/HPI - General Time Seen by Provider: 05/11/17 22:58 Historian: Longterm - History of Present Illness Narrative History of Present Illness (Text): 05/11/17 23:03 Dwayne Hoffmann is an 89 year old male, whose past medical history includes dementia and CVA, who presents to the Emergency department transferred from shelter for shortness of breath tonight. residential reports associated vomiting and decrease appetite. Patient was recently discharged from the hospital on 05/08/2017 following hydrocelectomy and orchiectomy. Limited HPI and ROS secondary to patient's dementia. Time/Duration: Other (today) Symptom Onset: Gradual Symptom Course: Unchanged Activities at Onset: Rest, Light Context: Home (residential) Past Medical History - Provider Review Nursing Documentation Reviewed: Yes - Cardiac Hx Cardiac Disorders: No - Neurological Hx Neurological Disorder: Yes HX Cerebrovascular Accident: Yes Hx Dementia: Yes - Musculoskeletal/Rheumatological Hx Falls: Yes - Psychiatric Hx Substance Use: No - Surgical History Other/Comment: colon surgery - Anesthesia Hx Anesthesia Reactions: No Hx Malignant Hyperthermia: No Family/Social History - Physician Review Nursing Documentation Reviewed: Yes Family/Social History: Unknown Family HX Smoking Status: Never Smoked Hx Alcohol Use: No Hx Substance Use: No Allergies/Home Meds Allergies/Adverse Reactions: Allergies No Known Allergies Allergy (Verified 05/12/17 00:20) Home Medications: Home Meds Medication Instructions Recorded Confirmed Donepezil HCl [Aricept Odt] 10 mg PO HS 12/01/16 05/12/17 Primidone [Mysoline] 250 mg PO DAILY 12/01/16 05/12/17 predniSONE [predniSONE Tab] 5 mg PO QOTHERDAY 12/01/16 05/12/17 Dimethicone [Proshield Plus SKIN 1 applic TOP DAILY 05/12/17 05/12/17 PROTECTANT] Docusate [Colace] 200 mg PO HS 05/12/17 05/12/17 Heparin 5,000 units SC Q12 05/12/17 05/12/17 Lactose-Reduced Food [Ensure Plus] 237 ml PO TID 05/12/17 05/12/17 Lactulose [Generlac] 30 ml PO Q6 05/12/17 05/12/17 Pantoprazole Sodium [Protonix] 40 mg PO DAILY 05/12/17 05/12/17 Review of Systems - Review of Systems Systems not reviewed;Unavailable: Dementia Physical Exam Vital Signs Reviewed: Yes Vital Signs Temp Pulse Resp BP Pulse Ox 05/12/17 05:24 125 H 26 H 100 05/12/17 05:13 135 H 29 H 130/84 100 05/12/17 04:58 138 H 23 140/110 H 100 05/12/17 04:10 145 H 38 H 83 L 05/12/17 03:46 110 H 28 H 148/90 96 05/12/17 02:48 136 H 20 151/95 H 93 L 05/12/17 01:04 99.1 F 125 H 28 H 122/62 100 05/12/17 00:30 102 H 26 H 152/80 H 95 05/12/17 00:05 26 H 05/11/17 23:06 98.8 F 106 H 42 H 147/85 92 L Temperature: Afebrile Blood Pressure: Normal Pulse: Tachycardic Respiratory Rate: Normal Appearance: Positive for: Well-Appearing, Comfortable Pain Distress: None Mental Status: Positive for: other (Alert) - Systems Exam Head: Present: Atraumatic, Normocephalic Pupils: Present: PERRL Extroacular Muscles: Present: EOMI Conjunctiva: Present: Normal Mouth: Present: Moist Mucous Membranes Neck: Present: Normal Range of Motion Respiratory/Chest: Present: Rhonchi. No: Respiratory Distress, Accessory Muscle Use Cardiovascular: Present: Regular Rate and Rhythm, Normal S1, S2. No: Murmurs Abdomen: Present: Normal Bowel Sounds. No: Tenderness, Distention, Peritoneal Signs Back: Present: Normal Inspection Upper Extremity: Present: Normal Inspection. No: Cyanosis, Edema Lower Extremity: Present: Normal Inspection. No: Edema Neurological: Present: GCS=15, CN II-XII Intact Skin: Present: Warm, Dry, Normal Color. No: Rashes Psychiatric: Present: Alert Medical Decision Making ED Course and Treatment: 05/11/17 23:03 Impression: 89 year old male sent from shelter for shortness of breath, vomiting, and decreased appetite. Differential Diagnosis included but are not limited to: sepsis vs. pneumonia vs. COPD Plan: -- EKG -- Chest X-ray -- Labs, VBG, cardiac enzymes, BNP, blood cultures -- Reassess and disposition Prior Visits: Notes and results from previous visits were reviewed. On 05/08/2017, pt was d/c from the hospital following hydrocelectomy and orchiectomy. Progress Notes: Reviewed EKG, sinus tachycardia at [address]-segment elevations or depressions, no T-wave inversions, normal intervals. 05/12/17 00:02 Pt complaining of lower abdominal pain. CT Abdomen and Pelvis ordered. 05/12/17 00:20 Reviewed radiology, Chest X-ray shows COPD. 05/12/17 00:48 Lactate: 4.5, WBC: 22.9. Pt tachycardic. Code Sepsis called. Vanco/Azactam ordered. 05/12/17 01:22 Case discussed with medical interpreter teamcenter consultant, who is aware and agrees with plan. 05/12/17 02:[address] Alva, covering for Dr. Jhaveri, who is aware and agrees with plan. Pt will be admitted for sepsis under Dr. Jhaveri's service. 05/12/17 03:36 Repeat lactate: 4.9. IV fluids ordered. 05/12/17 04:[address] Abdomen and Pelvis, shows: Findings in keeping with colitis related to fecal impaction. Findings in the left hemiscrotum favored to be postoperative. Nonobstructing renal calculi. Biliary dilation, chronic. New pneumonia left lower lobe with other lung findings as above. Air in the bladder which can be a sign of infection or reflect instrumentation. As per Fleischner Society guidelines for follow-up and management of pulmonary nodules: For patients at low risk (minimal or absent history of smoking and of other known risk factors), recommend initial follow-up chest CT at 6-12 months then at 18-24 months if no change. For patient at high risk (history of smoking or of other known risk factors), recommend initial follow-up chest CT at 3-6 months, then at 9-12 and 24 months if no change. Pt tachy, oxygen saturation in low 80s, experiencing increasing shortness of breath. Discussed with family present at bedside the risks/benefits of intubation. They are agreeable with plan to intubate. Respiratory therapist paged. Etomidate ordered. 05/12/17 04:40 Public Services Librarian paged. PROCEDURE: INTUBATION Performed by the emergency provider Consent: Informed consent, after discussion of the risks, benefits, and alternatives to the procedure was obtained from family present at bedside Timeout: A timeout to verify the correct patient, procedure, and site was performed. Pre-oxygenation: [id number] Medications: Etomidate, Propofol. See MAR for details. ETT Size: 8.0 gauge Confirmation: Cords directly visualized as tube passed, good bilateral breath sounds, positive CO2 detector color change, tube fogging, adequate chest rise, improving pulse oximetry reading, improved skin color, and absence of gastric sounds,. ETT Secured: The cuff was inflated and the tube was secured appropriately at a distance of 23 cm at the lip. Post-Procedure: There were no immediate complications. CXR Confirmation: Yes 05/12/17 04:[address] Vera, client experience consultant, who is aware and agrees with plan. 05/12/17 05:14 Reviewed post-intubation Chest X-ray, ET tube above the carrie. - Critical Care Critical Care Minutes: 45 minutes Narrative Critical Care (Text): Management of sepsis/respiratory distress. - Lab Interpretations Microbiology Results: Microbiology Results 05/12/17 00:35 Blood-Venous Blood Culture - Preliminary NO GROWTH AFTER 24 HOURS 05/12/17 00:05 Blood-Venous Blood Culture - Preliminary NO GROWTH AFTER 24 HOURS Lab Results: 05/12/17 00:05 05/12/17 00:05 Lab Results 05/12/17 01:35: Urine Color Dark yellow, Urine Appearance Sl cloudy, Urine pH 6.0, Ur Specific [place] >= 1.030, Urine Protein 30 H, Urine Glucose (UA) Negative, Urine Ketones Negative, Urine Blood Large H, Urine Nitrate Negative, Urine Bilirubin Negative, Urine Urobilinogen 1.0 H, Ur Leukocyte Esterase Negative, Urine RBC 20 - 25, Urine WBC 10 - 15, Ur Epithelial Cells 0 - 2, Calcium Oxalate Crystal Rare, Urine Bacteria Small 05/12/17 00:05: Sodium 135, Chloride 93 L, Potassium 4.1, Carbon Dioxide 28, Anion Gap 18, BUN 42 H, Creatinine 0.8, Est GFR ( Amer) > 60, Est GFR ( Non-Af Amer) > 60, Random Glucose 214 H, Calcium 9.8, Total Bilirubin 0.4, AST 72 H, ALT 86 H, Alkaline Phosphatase 115, Lactate Dehydrogenase 589, Total Creatine Kinase 91, Troponin I < 0.01, NT-Pro-B Natriuret Pep 929 H, Total Protein 7.6, Albumin 3.9, Globulin 3.7, Albumin/Globulin Ratio 1.1 05/12/17 00:05: pO2 50, VBG pH 7.29 L, VBG pCO2 60.0, VBG HCO3 28.9 H, VBG Total CO2 30.7 H, VBG O2 Sat (Calc) 85.8 H, VBG Base Excess 0.9, VBG Potassium 4.1, Sodium 133.0, Chloride 98.0, Glucose 221 H, Lactate 4.5 H*, FiO2 21.0, Venous Blood Potassium 4.1 05/12/17 00:05: WBC 22.9 H D, RBC 3.70, Hgb 11.7 L, Hct 35.1 L, MCV 94.9, MCH 31.6, MCHC 33.3, RDW 13.2, Plt Count 398, MPV 9.7, Neutrophils % (Manual) 90 H, Band Neutrophils % 5 H, Lymphocytes % (Manual) 2 L, Monocytes % (Manual) 3, Platelet Evaluation Normal 05/11/17 23:06: POC Glucose (mg/dL) 214 H I have reviewed the lab results: Yes - RAD Interpretation Narrative RAD Interpretations (Text): CT Abdomen and Pelvis, shows: Lower thorax: Lung bases show a poorly defined 17 mm opacity in the left lower lobe with suggestion of adjacent airspace disease, favored that this is infectious noting some bilateral tree in bud type findings. Compared to study of 1 week prior the findings in the left lower lobe are new in keeping with acute infection. There is peribronchial cuffing bilaterally. Changes of paraseptal emphysema. Small nodules particularly in the right lung, right middle lobe on the uppermost image 4 mm, right lower lobe series 2 image 53 mm. Atelectasis and bronchiectasis in the right middle lobe with a nodule of 7 mm. Calcifications in keeping with coronary artery disease. ABDOMEN: Liver: Unremarkable. Gallbladder and bile ducts: Biliary ductal dilatation, up to 12 mm. Obstructing calcified stone is not seen. Not changed from one week prior. Pancreas: Unremarkable. No ductal dilation. Spleen: Unremarkable. No splenomegaly. Adrenals: Unremarkable. No mass. Kidneys and ureters: Bilateral renal calculi with right greater than left perinephric stranding suspicious for infection. No hydronephrosis of either kidney. Hypoattenuating findings in the kidneys not fully characterized on this noncontrast CT as well as a likely hemorrhagic cyst in the right kidney. Stomach and bowel: There is increased fecal content in the proximal colon, suggestion of liquid content in the transverse and descending colon. There is distension of the rectum with formed fecal material, and adjacent fatty stranding/edema, suggesting stercoral colitis ( colitis secondary to fecal impaction). Fluid filled small bowel, correlate for enteritis. The Appendix: No findings to suggest acute appendicitis. PELVIS: Bladder: Air in the bladder which can be a sign of infection or reflect instrumentation. No stones. Reproductive: There is an air-fluid level in the left hemiscrotum. There is fluid bilaterally tracking into the inguinal canals. There is likelybubbles of air in the perineum, [id number], although difficult to exclude that this could be located between skin folds in part. It is noted that on study of 1 week prior, there was a large left-sided hydrocele, history of interim procedures is not available. Prostate prominent. ABDOMEN and PELVIS: Intraperitoneal space: There is no free intraperitoneal air. No significant fluid collection. Bones/joints: No acute fracture. No dislocation. Soft tissues: There is air in the subcutaneous tissues of the groin, see series 2 image 147. 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 No abdominal aortic aneurysm. Lymph nodes: Unremarkable. No enlarged lymph nodes. IMPRESSION: Findings in keeping with colitis related to fecal impaction. Findings in the left hemiscrotum favored to be postoperative. Nonobstructing renal calculi. Biliary dilation, chronic. New pneumonia left lower lobe with other lung findings as above. Air in the bladder which can be a sign of infection or reflect instrumentation. As per Fleischner Society guidelines for follow-up and management of pulmonary nodules: For patients at low risk (minimal or absent history of smoking and of other known risk factors), recommend initial follow-up chest CT at 6-12 months then at 18-24 months if no change. For patient at high risk (history of smoking or of other known risk factors), recommend initial follow-up chest CT at 3-6 months, then at 9-12 and 24 months if no change. Radiology Orders: 05/11/17 23:18 CHEST PORTABLE [RAD] Stat 05/12/17 00:02 ABD & PELVIS W/O PO OR IV CONT [CT] Stat Certified Professional Coder: ED Physician, Radiologist - EKG Interpretation Interpreted by ED Physician: Yes Type: 12 lead EKG - Medication Orders Current Medication Orders: Albuterol/Ipratropium (Duoneb 3 Mg/0.5 Mg (3 Ml) Ud) 3 ml IH [id number] KAMLESH Last Admin: 05/13/17 02:57 Dose: 3 ml Budesonide (Pulmicort Respules) 0.5 mg IH BIDRESP KAMLESH Last Admin: 05/12/17 19:45 Dose: 0.5 mg Donepezil HCl (Aricept) 10 mg PO HS KAMLESH Heparin Sodium (Porcine) (Heparin) 5,000 units SC Q8 KAMLESH PRN Reason: Protocol Last Admin: 05/12/17 21:23 Dose: 5,000 units Propofol (Diprivan) 1,000 mg in 100 mls @ 1.293 mls/hr IV .Q24H PRN; Protocol; 5 MCG/KG/MIN PRN Reason: TITRATE PER MD ORDER Last Titration: 05/12/17 08:05 Dose: 10 mcg/kg/min, 2.585 mls/hr Vancomycin HCl (Vancomycin 1gm) 1 gm in 250 mls @ 167 mls/hr IVPB Q12H KAMLESH PRN Reason: Protocol Last Admin: 05/13/17 05:20 Dose: 167 mls/hr Meropenem 1g/NS 100mL IVPB (Meropenem 1g/Ns 100ml Ivpb) 1 gm in 100 mls @ 100 mls/hr IVPB Q8 KAMLESH PRN Reason: Protocol Stop: 05/19/17 06:31 Last Admin: 05/12/17 21:22 Dose: 100 mls/hr Doxycycline Hyclate 100 mg/ (Sodium Chloride) 100 mls @ 100 mls/hr IVPB Q12 KAMELSH PRN Reason: Protocol Last Admin: 05/12/17 21:21 Dose: 100 mls/hr Sodium Chloride (Sodium Chloride 0.9%) 1,000 mls @ 100 mls/hr IV .Q10H KAMLESH Last Admin: 05/12/17 08:30 Dose: 100 mls/hr Metronidazole (Flagyl) 500 mg in 100 mls @ 100 mls/hr IVPB Q8 KAMLESH PRN Reason: Protocol Last Admin: 05/12/17 21:23 Dose: 100 mls/hr Pantoprazole Sodium (Protonix Inj) 40 mg IVP DAILY [facility] Last Admin: 05/12/17 14:06 Dose: 40 mg Discontinued Medications Albuterol/Ipratropium (Duoneb 3 Mg/0.5 Mg (3 Ml) Ud) 3 ml IH Q15M [facility] Stop: 05/12/17 00:46 Last Admin: 05/12/17 00:53 Dose: 3 ml Albuterol/Ipratropium (Duoneb 3 Mg/0.5 Mg (3 Ml) Ud) 3 ml IH STAT STA Stop: 05/12/17 04:13 Last Admin: 05/12/17 04:20 Dose: 3 ml Etomidate (Amidate) Confirm Administered Dose 20 mg IV .STK-MED ONE Stop: 05/12/17 04:32 Last Admin: 05/12/17 04:35 Dose: 10 mg Comments: 10 mg adm ivp as per verbal order from Dr. Rice Sodium Chloride (Sodium Chloride 0.9%) 1,000 mls @ 150 mls/hr IV .Q6H40M [facility] Last Admin: 05/12/17 00:53 Dose: 150 mls/hr Aztreonam (Azactam 2 Gm) 100 mls @ 100 mls/hr IVPB STAT STA PRN Reason: Protocol Stop: 05/12/17 01:57 Last Admin: 05/12/17 01:32 Dose: 100 mls/hr Vancomycin HCl (Vancomycin 1gm) 1 gm in 250 mls @ 167 mls/hr IVPB STAT STA PRN Reason: Protocol Stop: 05/12/17 02:27 Last Admin: 05/12/17 03:04 Dose: 167 mls/hr Sodium Chloride 1,200 ml/ IV (SUPPLIES) 1,200 mls @ 2,585.46 mls/hr IV ONCE ONE PRN Reason: 60 ML/KG/HR Stop: 05/12/17 03:38 Last Admin: 05/12/17 03:45 Dose: 2,585.46 mls/hr Propofol (Diprivan) Confirm Administered Dose 1,000 mg in 100 mls @ ud .ROUTE .STK-MED ONE Stop: 05/12/17 04:47 Last Admin: 05/12/17 04:54 Dose: Sodium Chloride (Sodium Chloride 0.9%) 1,000 mls @ 999 mls/hr IV .Q1H1M STA Stop: 05/12/17 08:40 Last Admin: 05/12/17 08:30 Dose: 999 mls/hr Mineral Oil (Fleet Mineral Oil Enema) 135 ml RC ONCE ONE Stop: 05/12/17 07:54 Last Admin: 05/12/17 08:31 Dose: 135 ml Polyethylene Glycol (Miralax) 17 gm PO ONCE ONE Stop: 05/12/17 07:55 Last Admin: 05/12/17 09:17 Dose: - Scribe Statement The provider has reviewed the documentation as recorded by the Scribludwig Anaya All medical record entries made by the Angelyibludwig were at my direction and personally dictated by me. I have reviewed the chart and agree that the record accurately reflects my personal performance of the history, physical exam, medical decision making, and the department course for this patient. I have also personally directed, reviewed, and agree with the discharge instructions and disposition. Disposition/Present on Arrival - Present on Arrival Any Indicators Present on Arrival: No History of DVT/PE: No History of Uncontrolled Diabetes: No Urinary Catheter: No History Surgical Site Infection Following: None - Disposition Have Diagnosis and Disposition been Completed?: Yes Diagnosis: Sepsis Disposition: HOSPITALIZED Disposition Time: 05:30 Condition: SERIOUS
[2017-05-12] MEDS: Albuterol-Ipratrop 3 mg / 0.5 (3 ml) UD IH SCH ×6 (00:32→19:45)
[2017-05-12 00:34] LABS: HEMOGLOBIN 11.7 gm/dL (14.0-18.0); MEAN CELL VOLUME 94.9 fL (80.0-105.0); MEAN CORPUSCULAR HEMOGLOBIN 31.6 pg (25.0-35.0); MEAN CORPUSCULAR HGB CONC 33.3 g/dl (31.0-37.0); MEAN PLATELET VOLUME 9.7 fl (7.0-11.0); PLATELET COUNT 398 10^3/uL (120.0-450.0); RED CELL DISTRIBUTION WIDTH 13.2 % (11.5-14.5); WHITE BLOOD COUNT 22.9 10^3/ul (4.5-11.0)
[2017-05-12 00:36] LABS: VENOUS BLOOD GAS BASE EXCESS 0.9 mmol/L (0.0-2.0); VENOUS BLOOD GAS PO2 50 mm/Hg (30-55); VENOUS BLOOD PH 7.29 (7.32-7.43)
[2017-05-12 00:45] LABS: ALB/GLOB RATIO 1.1 (1.1-1.8); ALBUMIN 3.9 g/dL (3.0-4.8); ALT/SGPT 86 U/L (7-56); AST/SGOT 72 U/L (15-59); BLOOD UREA NITROGEN 42 mg/dL (7-21); CALCIUM 9.8 mg/dL (8.4-10.5); GFR AFRICAN-AMERICAN > 60; GFR NON-AFRICAN AMERICAN > 60
[2017-05-12 00:57] LABS: B-TYPE NATRIURETIC PEPTIDE 929 pg/mL (0-450)
[2017-05-12 00:58] LABS: TROPONIN I < 0.01 ng/mL
[2017-05-12] MEDS ORDERED: Vancomycin 1gm in NS 250ml 1 GM/250 ML BAG IVPB STA (00:58)
[2017-05-12] MEDS ORDERED: Aztreonam 2 Gm in NS 100mL 100 ML IVPB STA (00:58)
[2017-05-12] MEDS ORDERED: Sodium Chloride 0.9% 1,000 ML IV SCH (01:00)
[2017-05-12 01:22] LABS: BAND 5 % (0-2); LYMPHOCYTE 2 % (22.0-35.0); MONOCYTE 3 % (1.0-6.0); NEUTROPHIL 90 % (50.0-70.0)
[2017-05-12 01:23] LABS: PLATELET ESTIMATE NORMAL (NORMAL)
[2017-05-12 01:44] LABS: URINE BILIRUBIN NEGATIVE (NEGATIVE); URINE BLOOD LARGE (NEGATIVE); URINE GLUCOSE (UA) NEGATIVE (NEGATIVE); URINE LEUKOCYTE ESTERASE NEGATIVE Leu/uL (NEGATIVE); URINE NITRATE NEGATIVE (NEGATIVE); URINE PROTEIN 30 mg/dL (<30 mg/dL)
[2017-05-12 01:47] LABS: URINE APPEARANCE SL CLOUDY (CLEAR); URINE COLOR DARK YELLOW (YELLOW)
[2017-05-12 02:05] LABS: URINE BACTERIA SMALL (NEG); URINE CALCIUM OXALATE CRYSTALS RARE /hpf; URINE EPITHELIAL CELLS 0 - 2 /hpf (0-5); URINE RBC 20 - 25 /hpf (0-2)
[2017-05-12 03:33] LABS: VENOUS BLOOD GAS PO2 187 mm/Hg (30-55); VENOUS BLOOD PH 7.27 (7.32-7.43)
[2017-05-12] MEDS ORDERED: Albuterol-Ipratrop 3 mg / 0.5 (3 ml) UD IH STA (04:12)
[2017-05-12] MEDS ORDERED: Etomidate 20 mg/10ml Inj IV ONE (04:31)
--- NOTE | 2017-05-12 04:35 | CT ---
EXAM: CT Abdomen and Pelvis Without Intravenous Contrast CLINICAL HISTORY: 89 years old, male; Pain; Abdominal pain; Generalized; Additional info: Abd pain TECHNIQUE: Axial computed tomography images of the abdomen and pelvis without intravenous contrast. This CT exam was performed using one or more of the following dose reduction techniques: automated exposure control, adjustment of the mA and/or kV according to patient size, and/or use of iterative reconstruction technique. Coronal and sagittal reformatted images were created and reviewed. EXAM DATE/TIME: Exam ordered 05/12/2017 12:02 AM COMPARISON: CT - ABD PELVIS W/O PO OR IV CONT 05/05/2017 8:55:35 AM FINDINGS: Lower thorax: Lung bases show a poorly defined 17 mm opacity in the left lower lobe with suggestion of adjacent airspace disease, favored that this is infectious noting some bilateral tree in bud type findings. Compared to study of 1 week prior the findings in the left lower lobe are new in keeping with acute infection. There is peribronchial cuffing bilaterally. Changes of paraseptal emphysema. Small nodules particularly in the right lung, right middle lobe on the uppermost image 4 mm, right lower lobe series 2 image 53 mm. Atelectasis and bronchiectasis in the right middle lobe with a nodule of 7 mm. Calcifications in keeping with coronary artery disease. ABDOMEN: Liver: Unremarkable. Gallbladder and bile ducts: Biliary ductal dilatation, up to 12 mm. Obstructing calcified stone is not seen. Not changed from one week prior. Pancreas: Unremarkable. No ductal dilation. Spleen: Unremarkable. No splenomegaly. Adrenals: Unremarkable. No mass. Kidneys and ureters: Bilateral renal calculi with right greater than left perinephric stranding suspicious for infection. No hydronephrosis of either kidney. Hypoattenuating findings in the kidneys not fully characterized on this noncontrast CT as well as a likely hemorrhagic cyst in the right kidney. Stomach and bowel: There is increased fecal content in the proximal colon, suggestion of liquid content in the transverse and descending colon. There is distension of the rectum with formed fecal material, and adjacent fatty stranding/edema, suggesting stercoral colitis (colitis secondary to fecal impaction). Fluid filled small bowel, correlate for enteritis. The Appendix: No findings to suggest acute appendicitis. PELVIS: Bladder: Air in the bladder which can be a sign of infection or reflect instrumentation. No stones. Reproductive: There is an air-fluid level in the left hemiscrotum. There is fluid bilaterally tracking into the inguinal canals. There is likelybubbles of air in the perineum, [id number], although difficult to exclude that this could be located between skin folds in part. It is noted that on study of 1 week prior, there was a large left-sided hydrocele, history of interim procedures is not available. Prostate prominent. ABDOMEN and PELVIS: Intraperitoneal space: There is no free intraperitoneal air. No significant fluid collection. Bones/joints: No acute fracture. No dislocation. Soft tissues: There is air in the subcutaneous tissues of the groin, see series 2 image 147. 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 No abdominal aortic aneurysm. Lymph nodes: Unremarkable. No enlarged lymph nodes. IMPRESSION: Findings in keeping with colitis related to fecal impaction. Findings in the left hemiscrotum favored to be postoperative. Nonobstructing renal calculi. Biliary dilation, chronic. New pneumonia left lower lobe with other lung findings as above. Air in the bladder which can be a sign of infection or reflect instrumentation. As per Fleischner Society guidelines for follow-up and management of pulmonary nodules: For patients at low risk (minimal or absent history of smoking and of other known risk factors), recommend initial follow-up chest CT at 6-12 months then at 18-24 months if no change. For patient at high risk (history of smoking or of other known risk factors), recommend initial follow-up chest CT at 3-6 months, then at 9-12 and 24 months if no change. THIS REPORT CONTAINS FINDINGS THAT MAY BE CRITICAL TO PATIENT CARE. The findings were verbally communicated via telephone conference with Sven Rice at 4:26 AM EDT on 05/12/2017. The findings were acknowledged and understood. He provides history of left orchiectomy within the prior week.
[2017-05-12] MEDS ORDERED: Propofol 10 mg/ml 1,000 MG/100 ML VIAL IV PRN (04:43)
[2017-05-12] MEDS ORDERED: Propofol 10 mg/ml 1,000 MG/100 ML VIAL ONE (04:46)
[2017-05-12 05:32] LABS: HEMOGLOBIN 10.3 gm/dL (14.0-18.0); MEAN CELL VOLUME 95.8 fL (80.0-105.0); MEAN CORPUSCULAR HEMOGLOBIN 31.2 pg (25.0-35.0); MEAN CORPUSCULAR HGB CONC 32.6 g/dl (31.0-37.0); MEAN PLATELET VOLUME 9.5 fl (7.0-11.0); PLATELET COUNT 330 10^3/uL (120.0-450.0); RED CELL DISTRIBUTION WIDTH 13.6 % (11.5-14.5)
[2017-05-12 05:36] LABS: ARTERIAL BLOOD GAS HCO3 20.6 mmol/L (21-28); ARTERIAL BLOOD GAS O2 SAT 97.2 % (95-98); ARTERIAL BLOOD GAS PCO2 54 mm/Hg (35-45); ARTERIAL BLOOD GAS TCO2 22.3 mmol.L (22-28)
[2017-05-12 05:37] LABS: WHITE BLOOD COUNT 32.6 10^3/ul (4.5-11.0)
[2017-05-12 05:41] LABS: ALB/GLOB RATIO 1.1 (1.1-1.8); ALBUMIN 3.1 g/dL (3.0-4.8); ALT/SGPT 68 U/L (7-56); AST/SGOT 54 U/L (15-59); BLOOD UREA NITROGEN 34 mg/dL (7-21); CALCIUM 8.1 mg/dL (8.4-10.5); GFR AFRICAN-AMERICAN > 60; GFR NON-AFRICAN AMERICAN > 60; MAGNESIUM 1.9 mg/dL (1.7-2.2)
[2017-05-12 05:43] LABS: ARTERIAL BLOOD GAS PH 7.19 (7.35-7.45)
[2017-05-12] MEDS ORDERED: Piperacill/Tazo 4.5gm in NS 4.5 GM/100 ML BAG IVPB SCH (06:00)
[2017-05-12 06:08] LABS: NEUTROPHIL 83 % (50.0-70.0)
[2017-05-12 06:11] LABS: BAND 10 % (0-2); LYMPHOCYTE 3 % (22.0-35.0)
[2017-05-12 06:12] LABS: MONOCYTE 4 % (1.0-6.0); PLATELET ESTIMATE NORMAL (NORMAL)
--- NOTE | 2017-05-12 06:46 | CP.PCM.CON ---
History of Present Illness - History of Present Illness History of Present Illness: Reason for ICU Consult: CODE SEPSIS HPI: 89 y/o male with a PMHx Dementia, CVA and recent orchiectomy for a testicular mass was sent from the sub-acute rehab facility due to shortness of breath which began last night. Patient was reported to have multiple episodes of nonbilious nonbloody vomiting over the past 2 days at the longterm which preceded his shortness of breath. Upon presentation to the ED the patient was treated as a CODE SEPSIS and hydrated with IVF and given IV Abx. He subsequently was reported to be worsening from a respiratory standpoint and required intubation with mechanical ventilation due to hypoxic respiratory failure. The patient is intubated and unable to provide any history; the bulk of the history was obtained from his daughters who are dominican speaking as well as the ED Physician/medical records. The patient was also noted to have abdominal distension and a CT scan of the abdomen revealed fecal impaction with Colitis as well as a left lower lobe consolidation which is likely a pneumonia. 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 (05/03/17) Allergies: NKDA Fam Hx: reviewed and noncontributory Soc Hx: no history of tobacco use/etoh/illicit drugs; was living with his daughters prior to him being admitted to the [facility] facility after the orchiectomy last week Meds: See med list Review of Systems - Review of Systems Review of Systems: unable to obtain; patient is intubated and sedated Past Patient History - Infectious Disease Hx of Infectious Diseases: None - Past Social History Smoking Status: Never Smoked - CARDIAC Hx Cardiac Disorders: No - NEUROLOGICAL Hx Neurological Disorder: Yes HX Cerebrovascular Accident: Yes Hx Dementia: Yes - MUSCULOSKELETAL/RHEUMATOLOGICAL Hx Falls: Yes - PSYCHIATRIC Hx Substance Use: No - SURGICAL HISTORY Other/Comment: colon surgery - ANESTHESIA Hx Anesthesia Reactions: No Hx Malignant Hyperthermia: No Meds Allergies/Adverse Reactions: Allergies Allergy/AdvReac Type Severity Reaction Status Date / Time No Known Allergies Allergy Verified 05/12/17 00:20 - Medications Medications: Current Medications Albuterol/Ipratropium (Duoneb 3 Mg/0.5 Mg (3 Ml) Ud) 3 ml IH [id number] KAMLESH Heparin Sodium (Porcine) (Heparin) 5,000 units SC Q8 KAMLESH PRN Reason: Protocol Sodium Chloride (Sodium Chloride 0.9%) 1,000 mls @ 150 mls/hr IV .Q6H40M [facility] Last Admin: 05/12/17 00:53 Dose: 150 mls/hr Piperacillin Sod/Tazobactam Sod (Zosyn 4.5 Gm In Ns 100ml) 4.5 gm in 100 mls @ 200 mls/hr IVPB Q6 KAMLESH PRN Reason: Protocol Stop: 05/12/17 12:29 Propofol (Diprivan) 1,000 mg in 100 mls @ 1.293 mls/hr IV .Q24H PRN; Protocol; 5 MCG/KG/MIN PRN Reason: TITRATE PER MD ORDER Last Titration: 05/12/17 05:16 Dose: 20 mcg/kg/min, 5.171 mls/hr Sodium Bicarbonate 75 meq/ (Sodium Chloride) 1,075 mls @ 125 mls/hr IV .Q8H36M KAMLESH Vancomycin HCl (Vancomycin 1gm) 1 gm in 250 mls @ 167 mls/hr IVPB Q12H KAMLESH PRN Reason: Protocol Methylprednisolone (Solu-Medrol) 40 mg IVP Q12 [facility] Physical Exam - Constitutional Appears: Cachectic - Head Exam Head Exam: ATRAUMATIC, NORMOCEPHALIC - ENT Exam ENT Exam: Mucous Membranes Dry Additional comments: + ETT in place - Neck Exam Neck exam: Positive for: Normal Inspection - Respiratory Exam Respiratory Exam: absent: Wheezes Additional comments: coarse breath sounds bilaterally; crackles over the left lung base; no wheezing or ronchi - Cardiovascular Exam Cardiovascular Exam: Tachycardia, +S1, +S2 - GI/Abdominal Exam GI & Abdominal Exam: Diminished Bowel Sounds, Distended. absent: Guarding, Rebound, Tenderness - Rectal Exam Rectal Exam: Fecal Impaction - Exam Additional comments: healing wound site over the scrotum with ?lesion over the penis - Extremities Exam Extremities exam: Positive for: normal inspection - Neurological Exam Additional comments: intubated and sedated; moving extremities spontaneously - Skin Skin Exam: Dry, Intact, Normal Color, Warm Results - Vital Signs Recent Vital Signs: Last Vital Signs Temp 99.1 F 05/12/17 01:04 Pulse 125 H 05/12/17 05:24 Resp 26 H 05/12/17 05:24 BP 130/84 05/12/17 05:13 Pulse Ox 100 05/12/17 05:24 - Labs Result Diagrams: 05/12/17 05:10 05/12/17 05:10 Labs: Laboratory Results - last 24 hr 05/12/17 05/12/17 05/12/17 03:26 05:10 05:10 WBC 32.6 H* D RBC 3.30 L Hgb 10.3 L Hct 31.6 L MCV 95.8 MCH 31.2 MCHC 32.6 RDW 13.6 Plt Count 330 MPV 9.5 Gran % Information Systems Security Manager Lymph % (Auto) Information Systems Security Manager [place] % (Auto) Information Systems Security Manager Eos % (Auto) Information Systems Security Manager Baso % (Auto) Information Systems Security Manager Gran # Information Systems Security Manager Lymph # Information Systems Security Manager [place] # Information Systems Security Manager Eos # Information Systems Security Manager Baso # Information Systems Security Manager Neutrophils % (Manual) 83 H Band Neutrophils % 10 H Lymphocytes % (Manual) 3 L Monocytes % (Manual) 4 Platelet Evaluation Normal pCO2 pO2 187 H HCO3 ABG pH ABG Total CO2 ABG O2 Saturation ABG Base Excess ABG Potassium VBG pH 7.27 L VBG pCO2 51.0 VBG HCO3 23.4 VBG Total CO2 25.0 VBG O2 Sat (Calc) 99.7 H VBG Base Excess -4.0 L VBG Potassium 3.7 Sodium 135.0 137 Chloride 105.0 105 Glucose 169 H Lactate 4.9 H* FiO2 21.0 Potassium 4.5 Carbon Dioxide 22 Anion Gap 15 BUN 34 H Creatinine 0.6 Est GFR ( Amer) > 60 Est GFR (Non-Af Amer) > 60 Random Glucose 162 H Calcium 8.1 L Phosphorus 4.9 H Magnesium 1.9 Total Bilirubin 0.4 AST 54 ALT 68 H Alkaline Phosphatase 101 Total Protein 6.1 Albumin 3.1 Globulin 3.0 Albumin/Globulin Ratio 1.1 Arterial Blood Potassium Venous Blood Potassium 3.7 05/12/17 05:18 WBC RBC Hgb Hct MCV MCH MCHC RDW Plt Count MPV Gran % Lymph % (Auto) [place] % (Auto) Eos % (Auto) Baso % (Auto) Gran # Lymph # [place] # Eos # Baso # Neutrophils % (Manual) Band Neutrophils % Lymphocytes % (Manual) Monocytes % (Manual) Platelet Evaluation pCO2 54 H pO2 81.0 HCO3 20.6 L ABG pH 7.19 L* ABG Total CO2 22.3 ABG O2 Saturation 97.2 ABG Base Excess -7.5 L ABG Potassium 3.8 VBG pH VBG pCO2 VBG HCO3 VBG Total CO2 VBG O2 Sat (Calc) VBG Base Excess VBG Potassium Sodium 139.0 Chloride 113.0 H Glucose 148 H Lactate 3.4 H FiO2 100.0 Potassium Carbon Dioxide Anion Gap BUN Creatinine Est GFR ( Amer) Est GFR (Non-Af Amer) Random Glucose Calcium Phosphorus Magnesium Total Bilirubin AST ALT Alkaline Phosphatase Total Protein Albumin Globulin Albumin/Globulin Ratio Arterial Blood Potassium 3.8 Venous Blood Potassium - Imaging and Cardiology CT scan - abdomen Status: Image reviewed by me, Report reviewed by me (left lung base pneumonia; fecal impaction in the colon with colitis) Assessment & Plan - Assessment and Plan (Free Text) Assessment: 89 y/o male with a PMHx Dementia, CVA and recent orchiectomy was sent from the longterm for acute shortness of breath. It appears the patient had multiple episodes of vomiting due to impaction which also caused an aspiration pneumonia as well. He is currently intubated and sedated in the ICU where he will receive continued care. Plan: Neuro: sedated with propofol, prior to sedation there were no neurological defecits reported by the ED; will monitor closely and wean sedation once the patient may be ready to be extubated Pulm: LLL Pneumonia; will place on IV steroids, solumedrol, IV Abx with Vancomycin and Zosyn IV. Initial ABG shows hypercapnic+hypoxic respiratory failure; will repeat ABG now that he has been on the ventilator for over an hour. Will send urine for s. pneumo and legionella; will check mycoplasma. CVS: sinus tach; will continue with IVF hydration; maintaining normal blood pressure, check trop level. GI: patient is fecally impacted; will attempt manual disimpaction, if unsuccessful, will try a fleets enema. Protonix 40mg IVP daily, GI consult as per PMD Renal: elevated BUN; will continue treatment with Bicarb drip, strict i's and o' s; daily weights Urology: recent orchiectomy; macerated appearing wound on the penis; will obtain a wound care evaluation ID: check procalcitonin level; blood cultures sent; will treat with Vanco/Zosyn for now Heme: bandemia and leukocytosis likely secondary to colitis + Pneumonia; check procalcitonin level and c/w IV Abx Endo: no acute issues at this time Psych: unable to assess at this time Case discussed at length with Dr. Rice in the ED all labs and images available thus far reviewed personally Total time of care: 45 minutes
[2017-05-12 06:54] LABS: ARTERIAL BLOOD GAS HCO3 23.2 mmol/L (21-28); ARTERIAL BLOOD GAS HEMOGLOBIN 9.6 g/dL (11.7-17.4); ARTERIAL BLOOD GAS O2 SAT 99.8 % (95-98); ARTERIAL BLOOD GAS PCO2 44 mm/Hg (35-45); ARTERIAL BLOOD GAS PH 7.33 (7.35-7.45); ARTERIAL BLOOD GAS TCO2 24.6 mmol.L (22-28)
--- NOTE | 2017-05-12 07:33 | CP.CCUPN ---
CCU Subjective - Physician Review Events Since Last Encounter (Free Text): Patient seen and examined at bedside. Intubated, sedated with Propofol drip. Nurse reports no events over night. Patient's family was present during my examination. 05/12/17 07:27 CCU Objective - Vital Signs / Intake & Output Vital Signs (Last 4 hours): Vital Signs Temp Pulse Resp BP Pulse Ox 05/12/17 06:00 99 F 05/12/17 05:24 125 H 26 H 100 05/12/17 05:13 135 H 29 H 130/84 100 05/12/17 04:58 138 H 23 140/110 H 100 05/12/17 04:10 145 H 38 H 83 L 05/12/17 03:46 110 H 28 H 148/90 96 Intake and Output (Last 8hrs): Intake & Output 05/11/17 05/12/17 05/12/17 22:59 06:59 14:59 Intake Total 1 Balance 1 Weight 92 lb 7 oz Intake: IV 1 - Physical Exam Head: Positive for: Atraumatic, Normocephalic Pupils: Positive for: PERRL Extroacular Muscles: Positive for: EOMI Conjunctiva: Positive for: Normal Mouth: Positive for: Moist Mucous Membranes Neck: Positive for: Normal Range of Motion Respiratory/Chest: Positive for: Rhonchi. Negative for: Respiratory Distress, Accessory Muscle Use Cardiovascular: Positive for: Regular Rate and Rhythm, Normal S1, S2. Negative for: Murmurs Abdomen: Positive for: Normal Bowel Sounds. Negative for: Tenderness, Distention, Peritoneal Signs Back: Positive for: Normal Inspection Upper Extremity: Positive for: Normal Inspection. Negative for: Cyanosis, Edema Lower Extremity: Positive for: Normal Inspection. Negative for: Edema Neurological: Positive for: GCS=15, CN II-XII Intact Skin: Positive for: Warm, Dry, Normal Color. Negative for: Rashes Psychiatric: Positive for: Alert - Medications Active Medications: Active Medications Generic Name Dose Route Start Last Admin Trade Name Freq PRN Reason Stop Dose Admin Albuterol/Ipratropium 3 ml 05/12/17 08:00 Duoneb 3 Mg/0.5 Mg (3 Ml) Ud IH [id number] KAMLESH Heparin Sodium (Porcine) 5,000 units 05/12/17 14:00 Heparin SC Q8 KAMLESH Protocol Propofol 1,000 mg in 100 mls @ 1.293 mls/hr 05/12/17 04:43 05/12/17 05:16 Diprivan IV 20 mcg/kg/min .Q24H PRN 5.171 mls/hr TITRATE PER MD ORDER Titration Protocol 5 MCG/KG/MIN Vancomycin HCl 1 gm in 250 mls @ 167 mls/hr 05/12/17 12:00 Vancomycin 1gm IVPB Q12H KAMLESH Protocol Meropenem 1g/NS 100mL IVPB 1 gm in 100 mls @ 100 mls/hr 05/12/17 06:30 Meropenem 1g/Ns 100ml Ivpb IVPB 05/19/17 06:31 Q8 KAMLESH Protocol Doxycycline Hyclate 100 mg/ 100 mls @ 100 mls/hr 05/12/17 10:00 Sodium Chloride IVPB Q12 KAMLESH Protocol Sodium Chloride 1,000 mls @ 100 mls/hr 05/12/17 07:00 Sodium Chloride 0.9% IV .Q10H KAMLESH - Patient Studies Lab Studies: Lab Studies 05/12/17 05/12/17 05/12/17 Range/Units 06:45 05:18 05:10 WBC (4.5-11.0) 10^3/ul RBC (3.5-6.1) 10^6/uL Hgb (14.0-18.0) gm/dL Hct (42.0-52.0) % MCV (80.0-105.0) fL MCH (25.0-35.0) pg MCHC (31.0-37.0) g/dl RDW (11.5-14.5) % Plt Count (120.0-450.0) 10^3/uL MPV (7.0-11.0) fl Gran % Lymph % (Auto) [place] % (Auto) Eos % (Auto) Baso % (Auto) Gran # Lymph # [place] # Eos # Baso # Neutrophils % (Manual) (50.0-70.0) % Band Neutrophils % (0-2) % Lymphocytes % (Manual) (22.0-35.0) % Monocytes % (Manual) (1.0-6.0) % Platelet Evaluation (NORMAL) pCO2 44 54 H (35-45) mm/Hg pO2 344.0 H 81.0 (30-55) mm/Hg HCO3 23.2 20.6 L (21-28) mmol/L ABG pH 7.33 L 7.19 L* (7.35-7.45) ABG Total CO2 24.6 22.3 (22-28) mmol.L ABG O2 Saturation 99.8 H 97.2 (95-98) % ABG O2 Content 14.0 L (15-23) ML/dl ABG Base Excess -2.7 L -7.5 L (-2.0-3.0) mmol/L ABG Hemoglobin 9.6 L (11.7-17.4) g/dL ABG Carboxyhemoglobin 1.6 H (0.5-1.5) % POC ABG HHb (Measured) 0.2 (0-5) % ABG Methemoglobin 1.3 (0.0-3.0) % ABG O2 Capacity 14.0 L (16-24) mL/dl ABG Potassium 3.8 (3.6-5.2) mmol/L VBG pH (7.32-7.43) VBG pCO2 (40-60) VBG HCO3 (21-28) mmol/l VBG Total CO2 (22-28) mmol.L VBG O2 Sat (Calc) (40-65) % VBG Base Excess (0.0-2.0) mmol/L VBG Potassium (3.6-5.2) mmol/L Hgb O2 Saturation 96.9 (95.0-98.0) % Sodium 139.0 137 (132-148) mmol/L Chloride 113.0 H 105 (98-107) mmol/L Glucose 148 H (75-110) mg/dl Lactate 3.4 H (0.7-2.1) mmol/L FiO2 100.0 100.0 % Potassium 4.5 (3.6-5.0) mmol/L Carbon Dioxide 22 (21-33) mmol/L Anion Gap 15 (10-20) BUN 34 H (7-21) mg/dL Creatinine 0.6 (0.5-1.4) mg/dL Est GFR ( Amer) > 60 Est GFR (Non-Af Amer) > 60 Random Glucose 162 H (70-110) mg/dL Calcium 8.1 L (8.4-10.5) mg/dL Phosphorus 4.9 H (2.5-4.5) mg/dL Magnesium 1.9 (1.7-2.2) mg/dL Total Bilirubin 0.4 (0.2-1.3) mg/dL AST 54 (15-59) U/L ALT 68 H (7-56) U/L Alkaline Phosphatase 101 (38-133) U/L Total Protein 6.1 (5.8-8.3) g/dL Albumin 3.1 (3.0-4.8) g/dL Globulin 3.0 gm/dL Albumin/Globulin Ratio 1.1 (1.1-1.8) Arterial Blood Potassium 3.8 (3.6-5.2) mmol/L Venous Blood Potassium (3.6-5.2) mmol/L 05/12/17 05/12/17 Range/Units 05:10 03:26 WBC 32.6 H* D (4.5-11.0) 10^3/ul RBC 3.30 L (3.5-6.1) 10^6/uL Hgb 10.3 L (14.0-18.0) gm/dL Hct 31.6 L (42.0-52.0) % MCV 95.8 (80.0-105.0) fL MCH 31.2 (25.0-35.0) pg MCHC 32.6 (31.0-37.0) g/dl RDW 13.6 (11.5-14.5) % Plt Count 330 (120.0-450.0) 10^3/uL MPV 9.5 (7.0-11.0) fl Gran % Towel Folder Lymph % (Auto) Towel Folder [place] % (Auto) Towel Folder Eos % (Auto) Towel Folder Baso % (Auto) Towel Folder Gran # Towel Folder Lymph # Towel Folder [place] # Towel Folder Eos # Towel Folder Baso # Towel Folder Neutrophils % (Manual) 83 H (50.0-70.0) % Band Neutrophils % 10 H (0-2) % Lymphocytes % (Manual) 3 L (22.0-35.0) % Monocytes % (Manual) 4 (1.0-6.0) % Platelet Evaluation Normal (NORMAL) pCO2 (35-45) mm/Hg pO2 187 H (30-55) mm/Hg HCO3 (21-28) mmol/L ABG pH (7.35-7.45) ABG Total CO2 (22-28) mmol.L ABG O2 Saturation (95-98) % ABG O2 Content (15-23) ML/dl ABG Base Excess (-2.0-3.0) mmol/L ABG Hemoglobin (11.7-17.4) g/dL ABG Carboxyhemoglobin (0.5-1.5) % POC ABG HHb (Measured) (0-5) % ABG Methemoglobin (0.0-3.0) % ABG O2 Capacity (16-24) mL/dl ABG Potassium (3.6-5.2) mmol/L VBG pH 7.27 L (7.32-7.43) VBG pCO2 51.0 (40-60) VBG HCO3 23.4 (21-28) mmol/l VBG Total CO2 25.0 (22-28) mmol.L VBG O2 Sat (Calc) 99.7 H (40-65) % VBG Base Excess -4.0 L (0.0-2.0) mmol/L VBG Potassium 3.7 (3.6-5.2) mmol/L Hgb O2 Saturation (95.0-98.0) % Sodium 135.0 (132-148) mmol/L Chloride 105.0 (98-107) mmol/L Glucose 169 H (75-110) mg/dl Lactate 4.9 H* (0.7-2.1) mmol/L FiO2 21.0 % Potassium (3.6-5.0) mmol/L Carbon Dioxide (21-33) mmol/L Anion Gap (10-20) BUN (7-21) mg/dL Creatinine (0.5-1.4) mg/dL Est GFR ( Amer) Est GFR (Non-Af Amer) Random Glucose (70-110) mg/dL Calcium (8.4-10.5) mg/dL Phosphorus (2.5-4.5) mg/dL Magnesium (1.7-2.2) mg/dL Total Bilirubin (0.2-1.3) mg/dL AST (15-59) U/L ALT (7-56) U/L Alkaline Phosphatase (38-133) U/L Total Protein (5.8-8.3) g/dL Albumin (3.0-4.8) g/dL Globulin gm/dL Albumin/Globulin Ratio (1.1-1.8) Arterial Blood Potassium (3.6-5.2) mmol/L Venous Blood Potassium 3.7 (3.6-5.2) mmol/L Laboratory Results - last 24 hr 05/12/17 05/12/17 05/12/17 03:26 05:10 05:10 WBC 32.6 H* D RBC 3.30 L Hgb 10.3 L Hct 31.6 L MCV 95.8 MCH 31.2 MCHC 32.6 RDW 13.6 Plt Count 330 MPV 9.5 Gran % Towel Folder Lymph % (Auto) Towel Folder [place] % (Auto) Towel Folder Eos % (Auto) Towel Folder Baso % (Auto) Towel Folder Gran # Towel Folder Lymph # Towel Folder [place] # Towel Folder Eos # Towel Folder Baso # Towel Folder Neutrophils % (Manual) 83 H Band Neutrophils % 10 H Lymphocytes % (Manual) 3 L Monocytes % (Manual) 4 Platelet Evaluation Normal pCO2 pO2 187 H HCO3 ABG pH ABG Total CO2 ABG O2 Saturation ABG O2 Content ABG Base Excess ABG Hemoglobin ABG Carboxyhemoglobin POC ABG HHb (Measured) ABG Methemoglobin ABG O2 Capacity ABG Potassium VBG pH 7.27 L VBG pCO2 51.0 VBG HCO3 23.4 VBG Total CO2 25.0 VBG O2 Sat (Calc) 99.7 H VBG Base Excess -4.0 L VBG Potassium 3.7 Hgb O2 Saturation Sodium 135.0 137 Chloride 105.0 105 Glucose 169 H Lactate 4.9 H* FiO2 21.0 Potassium 4.5 Carbon Dioxide 22 Anion Gap 15 BUN 34 H Creatinine 0.6 Est GFR ( Amer) > 60 Est GFR (Non-Af Amer) > 60 Random Glucose 162 H Calcium 8.1 L Phosphorus 4.9 H Magnesium 1.9 Total Bilirubin 0.4 AST 54 ALT 68 H Alkaline Phosphatase 101 Total Protein 6.1 Albumin 3.1 Globulin 3.0 Albumin/Globulin Ratio 1.1 Arterial Blood Potassium Venous Blood Potassium 3.7 05/12/17 05/12/17 05:18 06:45 WBC RBC Hgb Hct MCV MCH MCHC RDW Plt Count MPV Gran % Lymph % (Auto) [place] % (Auto) Eos % (Auto) Baso % (Auto) Gran # Lymph # [place] # Eos # Baso # Neutrophils % (Manual) Band Neutrophils % Lymphocytes % (Manual) Monocytes % (Manual) Platelet Evaluation pCO2 54 H 44 pO2 81.0 344.0 H HCO3 20.6 L 23.2 ABG pH 7.19 L* 7.33 L ABG Total CO2 22.3 24.6 ABG O2 Saturation 97.2 99.8 H ABG O2 Content 14.0 L ABG Base Excess -7.5 L -2.7 L ABG Hemoglobin 9.6 L ABG Carboxyhemoglobin 1.6 H POC ABG HHb (Measured) 0.2 ABG Methemoglobin 1.3 ABG O2 Capacity 14.0 L ABG Potassium 3.8 VBG pH VBG pCO2 VBG HCO3 VBG Total CO2 VBG O2 Sat (Calc) VBG Base Excess VBG Potassium Hgb O2 Saturation 96.9 Sodium 139.0 Chloride 113.0 H Glucose 148 H Lactate 3.4 H FiO2 100.0 100.0 Potassium Carbon Dioxide Anion Gap BUN Creatinine Est GFR ( Amer) Est GFR (Non-Af Amer) Random Glucose Calcium Phosphorus Magnesium Total Bilirubin AST ALT Alkaline Phosphatase Total Protein Albumin Globulin Albumin/Globulin Ratio Arterial Blood Potassium 3.8 Venous Blood Potassium Fingerstick Blood Sugar Results: 214 Critical Care Progress Note - Nutrition Nutrition: Nutrition Category Date Time Status NPO Diet [DIET] Diets 05/12/17 Breakfast Ordered
[2017-05-12] MEDS ORDERED: Sodium Chloride 0.9% 1,000 ML IV STA (07:40)
--- NOTE | 2017-05-12 07:43 | CP.PCM.PN ---
<Bassem Aden - Last Filed: 05/12/17 12:00> Subjective - Date & Time of Evaluation Date of Evaluation: 05/12/17 Time of Evaluation: 06:35 - Subjective Subjective: Patient seen and examined at bedside. He is intubated, sedated on Propofol drip , awake and moving all four extremities. Family was present during my examination. Objective - Vital Signs/Intake and Output Vital Signs (last 24 hours): Temp Pulse Resp BP Pulse Ox 99 F 125 H 26 H 130/84 100 05/12/17 06:00 05/12/17 05:24 05/12/17 05:24 05/12/17 05:13 05/12/17 05:24 Intake and Output: 05/12/17 05/12/17 06:59 18:59 Intake Total 1 Balance 1 - Medications Medications: Current Medications Albuterol/Ipratropium (Duoneb 3 Mg/0.5 Mg (3 Ml) Ud) 3 ml IH [id number] [facility] Heparin Sodium (Porcine) (Heparin) 5,000 units SC Q8 [facility] PRN Reason: Protocol Propofol (Diprivan) 1,000 mg in 100 mls @ 1.293 mls/hr IV .Q24H PRN; Protocol; 5 MCG/KG/MIN PRN Reason: TITRATE PER MD ORDER Last Titration: 05/12/17 05:16 Dose: 20 mcg/kg/min, 5.171 mls/hr Vancomycin HCl (Vancomycin 1gm) 1 gm in 250 mls @ 167 mls/hr IVPB Q12H [facility] PRN Reason: Protocol Meropenem 1g/NS 100mL IVPB (Meropenem 1g/Ns 100ml Ivpb) 1 gm in 100 mls @ 100 mls/hr IVPB Q8 [facility] PRN Reason: Protocol Stop: 05/19/17 06:31 Doxycycline Hyclate 100 mg/ (Sodium Chloride) 100 mls @ 100 mls/hr IVPB Q12 [facility] PRN Reason: Protocol Sodium Chloride (Sodium Chloride 0.9%) 1,000 mls @ 100 mls/hr IV .Q10H [facility] - Labs Labs: 05/12/17 05:10 05/12/17 05:10 - Constitutional Appears: Cachectic - Head Exam Head Exam: ATRAUMATIC, NORMOCEPHALIC - ENT Exam ENT Exam: Mucous Membranes Dry - Neck Exam Neck Exam: Normal Inspection - Respiratory Exam Additional comments: Diffuses crackles heard in left lung field. - Cardiovascular Exam Cardiovascular Exam: Tachycardia, +S1 - GI/Abdominal Exam GI & Abdominal Exam: Distended, Diminished Bowel Sounds. absent: Guarding, Tenderness, Rebound - Rectal Exam Rectal Exam: Fecal Impaction - Exam Exam: Scrotal Swelling (post-surgical) - Neurological Exam Additional comments: Sedated, awake, moves all 4 extremities - Skin Additional comments: Two sacral decubitus ulcer present on admission, stage 2. Assessment and Plan - Assessment and Plan (Free Text) Assessment: 89 yo male admitted with a history of dementia, CVA, who is s/p orchiectomy POD #5 who was at a [facility] where he developed 2 days of non-bilious, nonbloody vomiting and shortness of breath. In the ED he was found to be in respiratory distress, tachypneic. Labs showed a leukocytosis, elevated lactate. CT of the A/ P revealed a LLL pneumonia and fecal impaction. Within an hour of his admission he was transferred to the ICU for sepsis of unknown origin and respiratory failure Plan: Neuro: Intubated, sedated with propofol. Patient does have dementia secondary to cerebral amyloid angiopathy. Pulm: Initial ABG shows hypercapnic, respiratory failure; after initial administration with 100% oxygen, repeat ABG showed an improvement, and thus the FiO2 was lowered to 40%. Urine for S. pneumoniea and Legionella are pending; Mycoplasma IgM pending. CVS: Tachycardia, maintaing normal BP, troponin I negative. GI: Patient is fecally disimpacted. Dr. John is following him. Patient has had previous colon surgery (unspecified). Renal: elevated BUN; trending down (42-34), Bicarb drip was stopped once the pH reached 7.33?Monitor strict i's and o's; daily weights. Urology: Patient is POD #5 for orchiectomy, performed, I believe, by Dr. Ben Gil. I spoke to him on his cellular phone and notified him in regards to Mr. Hoffmann's condition. ID: Broad-spectrum antibiotics initiated, please refer to Dr. Marie's note. Heme: Leukocytosis with bands. I do not think "bandemia" is telling in this case , given Mr. Jones's underlying amyloidosis. <Bryan Turk - Last Filed: 05/12/17 13:55> Objective - Vital Signs/Intake and Output Vital Signs (last 24 hours): Temp Pulse Resp BP Pulse Ox 99 F 102 H 23 103/73 96 05/12/17 12:56 05/12/17 12:30 05/12/17 12:27 05/12/17 12:27 05/12/17 12:30 Intake and Output: 05/12/17 05/12/17 06:59 18:59 Intake Total 1 4 Balance 1 4 - Medications Medications: Current Medications Albuterol/Ipratropium (Duoneb 3 Mg/0.5 Mg (3 Ml) Ud) 3 ml IH [id number] [facility] Last Admin: 05/12/17 07:47 Dose: 3 ml Budesonide (Pulmicort Respules) 0.5 mg IH BIDRESP [facility] Donepezil HCl (Aricept) 10 mg PO HS [facility] Heparin Sodium (Porcine) (Heparin) 5,000 units SC Q8 [facility] PRN Reason: Protocol Propofol (Diprivan) 1,000 mg in 100 mls @ 1.293 mls/hr IV .Q24H PRN; Protocol; 5 MCG/KG/MIN PRN Reason: TITRATE PER MD ORDER Last Titration: 05/12/17 08:05 Dose: 10 mcg/kg/min, 2.585 mls/hr Vancomycin HCl (Vancomycin 1gm) 1 gm in 250 mls @ 167 mls/hr IVPB Q12H [facility] PRN Reason: Protocol Meropenem 1g/NS 100mL IVPB (Meropenem 1g/Ns 100ml Ivpb) 1 gm in 100 mls @ 100 mls/hr IVPB Q8 [facility] PRN Reason: Protocol Stop: 05/19/17 06:31 Last Admin: 05/12/17 08:29 Dose: 100 mls/hr Doxycycline Hyclate 100 mg/ (Sodium Chloride) 100 mls @ 100 mls/hr IVPB Q12 [facility] PRN Reason: Protocol Last Admin: 05/12/17 09:21 Dose: 100 mls/hr Sodium Chloride (Sodium Chloride 0.9%) 1,000 mls @ 100 mls/hr IV .Q10H [facility] Last Admin: 05/12/17 08:30 Dose: 100 mls/hr Metronidazole (Flagyl) 500 mg in 100 mls @ 100 mls/hr IVPB Q8 [facility] PRN Reason: Protocol Last Admin: 05/12/17 08:29 Dose: 100 mls/hr Pantoprazole Sodium (Protonix Inj) 40 mg IVP DAILY [facility] - Labs Labs: 05/12/17 05:10 05/12/17 05:10 Attending/Attestation - Attestation I have personally seen and examined this patient.: Yes I have fully participated in the care of the patient.: Yes I have reviewed all pertinent clinical information, including history, physical exam and plan: Yes Notes (Text): 05/12/17 13:37 89 yo male with recent orchectomy and debridement, who came to ICU for severe sepsis, secondary to colitis/fecal impaction, with MODS, including respiratory failure and ALEX. Patient was intubated, subsequent chest imaging clearly less remarkable then can be expected from clinical presentation (severe leukocytosis , respiratory failure, intubation). Spoke with Dr. Gil-->unlikely postop infection and CT findings are likely normal postoperative changes. Colitis/ fecal impaction-->likely potential source. Manual disimpaction done by GI service, abdo exam substantially improved afterward. Abx, IVF continued. Patient tolerated PST well and was extubated to BPAP. ccm time 40 min
[2017-05-12] MEDS ORDERED: Mineral Oil Enema 135 ml RC ONE (07:53)
[2017-05-12] MEDS ORDERED: POLYETHYLENE GLYCOL 3350 17 GM/Dose PACKET PO ONE (07:54)
[2017-05-12] MEDS: metroNIDAZOLE IV 500 mg/100 ml 500 MG/100 ML BAG IVPB SCH ×3 (08:29→21:23)
[2017-05-12] MEDS: Meropenem 1g/NS 100mL IVPB 1 GM/100 ML PIGGYBACK IVPB SCH ×3 (08:29→21:22)
[2017-05-12] MEDS: Sodium Chloride 0.9% 1,000 ML IV SCH (08:30)
--- NOTE | 2017-05-12 08:33 | CP.PCM.HP ---
History of Present Illness - History of Present Illness History of Present Illness: 89 y/o w/m from the alf w/ acute sob needing intubation w/ a left pneumonia also n/v recent d/c from hosp 05/08 w/ a hydrocelectomy and orchiectomy and now septic intubated w/ left pneumonia hi wbcs Present on Admission - Present on Admission Any Indicators Present on Admission: Yes History of DVT/PE: No History of Uncontrolled Diabetes: No Urinary Catheter: Yes Decubitus Ulcer Present: No Review of Systems - Review of Systems Review of Systems: intubated Past Patient History - Infectious Disease Hx of Infectious Diseases: None - Past Social History Smoking Status: Never Smoked - CARDIAC Hx Cardiac Disorders: No - NEUROLOGICAL Hx Neurological Disorder: Yes HX Cerebrovascular Accident: Yes Hx Dementia: Yes - MUSCULOSKELETAL/RHEUMATOLOGICAL Hx Falls: Yes - PSYCHIATRIC Hx Substance Use: No - SURGICAL HISTORY Other/Comment: colon surgery - ANESTHESIA Hx Anesthesia Reactions: No Hx Malignant Hyperthermia: No Meds Allergies/Adverse Reactions: Allergies Allergy/AdvReac Type Severity Reaction Status Date / Time No Known Allergies Allergy Verified 05/12/17 00:20 Physical Exam - Constitutional Appears: In Acute Distress - Head Exam Head Exam: NORMAL INSPECTION - Respiratory Exam Respiratory Exam: Decreased Breath Sounds Additional comments: on vent - Cardiovascular Exam Cardiovascular Exam: REGULAR RHYTHM - GI/Abdominal Exam GI & Abdominal Exam: Normal Bowel Sounds, Soft - Extremities Exam Extremities exam: Positive for: normal inspection - Neurological Exam Additional comments: intubated and sedated - Skin Skin Exam: Warm Results - Vital Signs Recent Vital Signs: Last Vital Signs Temp 99 F 05/12/17 06:00 Pulse 125 H 05/12/17 05:24 Resp 26 H 05/12/17 05:24 BP 130/84 05/12/17 05:13 Pulse Ox 100 05/12/17 05:24 - Labs Result Diagrams: 05/12/17 05:10 05/12/17 05:10 Labs: Laboratory Results - last 24 hr 05/12/17 05/12/17 05/12/17 03:26 05:10 05:10 WBC 32.6 H* D RBC 3.30 L Hgb 10.3 L Hct 31.6 L MCV 95.8 MCH 31.2 MCHC 32.6 RDW 13.6 Plt Count 330 MPV 9.5 Gran % Sports Announcer Lymph % (Auto) Sports Announcer [place] % (Auto) Sports Announcer Eos % (Auto) Sports Announcer Baso % (Auto) Sports Announcer Gran # Sports Announcer Lymph # Sports Announcer [place] # Sports Announcer Eos # Sports Announcer Baso # Sports Announcer Neutrophils % (Manual) 83 H Band Neutrophils % 10 H Lymphocytes % (Manual) 3 L Monocytes % (Manual) 4 Platelet Evaluation Normal pCO2 pO2 187 H HCO3 ABG pH ABG Total CO2 ABG O2 Saturation ABG O2 Content ABG Base Excess ABG Hemoglobin ABG Carboxyhemoglobin POC ABG HHb (Measured) ABG Methemoglobin ABG O2 Capacity ABG Potassium VBG pH 7.27 L VBG pCO2 51.0 VBG HCO3 23.4 VBG Total CO2 25.0 VBG O2 Sat (Calc) 99.7 H VBG Base Excess -4.0 L VBG Potassium 3.7 Hgb O2 Saturation Sodium 135.0 137 Chloride 105.0 105 Glucose 169 H Lactate 4.9 H* FiO2 21.0 Potassium 4.5 Carbon Dioxide 22 Anion Gap 15 BUN 34 H Creatinine 0.6 Est GFR ( Amer) > 60 Est GFR (Non-Af Amer) > 60 Random Glucose 162 H Calcium 8.1 L Phosphorus 4.9 H Magnesium 1.9 Total Bilirubin 0.4 AST 54 ALT 68 H Alkaline Phosphatase 101 Total Protein 6.1 Albumin 3.1 Globulin 3.0 Albumin/Globulin Ratio 1.1 Arterial Blood Potassium Venous Blood Potassium 3.7 05/12/17 05/12/17 05:18 06:45 WBC RBC Hgb Hct MCV MCH MCHC RDW Plt Count MPV Gran % Lymph % (Auto) [place] % (Auto) Eos % (Auto) Baso % (Auto) Gran # Lymph # [place] # Eos # Baso # Neutrophils % (Manual) Band Neutrophils % Lymphocytes % (Manual) Monocytes % (Manual) Platelet Evaluation pCO2 54 H 44 pO2 81.0 344.0 H HCO3 20.6 L 23.2 ABG pH 7.19 L* 7.33 L ABG Total CO2 22.3 24.6 ABG O2 Saturation 97.2 99.8 H ABG O2 Content 14.0 L ABG Base Excess -7.5 L -2.7 L ABG Hemoglobin 9.6 L ABG Carboxyhemoglobin 1.6 H POC ABG HHb (Measured) 0.2 ABG Methemoglobin 1.3 ABG O2 Capacity 14.0 L ABG Potassium 3.8 VBG pH VBG pCO2 VBG HCO3 VBG Total CO2 VBG O2 Sat (Calc) VBG Base Excess VBG Potassium Hgb O2 Saturation 96.9 Sodium 139.0 Chloride 113.0 H Glucose 148 H Lactate 3.4 H FiO2 100.0 100.0 Potassium Carbon Dioxide Anion Gap BUN Creatinine Est GFR ( Amer) Est GFR (Non-Af Amer) Random Glucose Calcium Phosphorus Magnesium Total Bilirubin AST ALT Alkaline Phosphatase Total Protein Albumin Globulin Albumin/Globulin Ratio Arterial Blood Potassium 3.8 Venous Blood Potassium Assessment & Plan - Assessment and Plan (Free Text) Assessment: left pneumonia sepsis a resp failure colitis Plan: icu intubation consults w/ id pulm uro iv abs aggressive tmt and care residential caregiver - Date & Time Date: 05/12/17 Time: 08:00
--- NOTE | 2017-05-12 09:10 | PCM.SEPTIC ---
Sepsis Progress Note - Reassessment Type Date of Evaluation: 05/12/17 Reassessment Type: Non-invasive reassessment - Non Invasive Reassessment Were the most recent vital sign reviewed: Yes Vital Sign (Latest): Temp Pulse Resp BP Pulse Ox 99 F 125 H 26 H 130/84 100 05/12/17 06:00 05/12/17 05:24 05/12/17 05:24 05/12/17 05:13 05/12/17 05:24 Cardiovascular: Yes: Tachycardia. No: Regular Rate, Rhythm Respiratory: Yes: Rales, Respiratory Distress. No: Decreased Breath Sounds Capillary Refill: Normal (Less than 2 sec) Pulses: Normal Radial, Normal Dorsalis Pedis, Normal Posterior Tibialis Skin: Diaphoretic Sv02: 100
--- NOTE | 2017-05-12 09:15 | RAD ---
HISTORY: Tube placement COMPARISON: 05/11/2017 FINDINGS: LUNGS: The endotracheal tube is in satisfactory position. Prominent interstitial markings are seen. There is no focal consolidation PLEURA: No significant pleural effusion identified, no pneumothorax apparent. CARDIOVASCULAR: Normal. OSSEOUS STRUCTURES: No significant abnormalities. VISUALIZED UPPER ABDOMEN: Normal. OTHER FINDINGS: None. IMPRESSION: Endotracheal tube in satisfactory position
--- NOTE | 2017-05-12 09:18 | RAD ---
HISTORY: sob COMPARISON: 05/03/2017 FINDINGS: LUNGS: No active pulmonary disease. PLEURA: No significant pleural effusion identified, no pneumothorax apparent. CARDIOVASCULAR: Normal. OSSEOUS STRUCTURES: No significant abnormalities. VISUALIZED UPPER ABDOMEN: Normal. OTHER FINDINGS: None. IMPRESSION: No active disease.
[2017-05-12] MEDS ORDERED: MethylPREDNISolone 40 mg Vial IVP SCH (10:00)
--- NOTE | 2017-05-12 10:10 | CARD ---
APPROVED REPORT EKG Measurement Heart [id number] CO [id number] [id number] <Conclusion> Sinus tachycardia RVCD Slight ST depression V 3, 4 c/w ECG 05/05/17
--- NOTE | 2017-05-12 10:21 | CP.PCM.CON ---
History of Present Illness - History of Present Illness History of Present Illness: PULMONARY CONSULTATION 89 yo m DEMENTIA, CVA, ORCHIECTOMY DYSPNEA LAST NIGHT CODE SEPSIS INTUNATED ON MECHANICAL VENT FURTHER HX UNKNOWN REMAINS IN ICU INTUBATED, RESTING PULMOMARY EVALUATION REQUESTED. Review of Systems - Review of Systems Systems not reviewed;Unavailable: Acuity of Condition, Respiratory Distress, Altered Mental Status, Intubated - Cardiovascular Cardiovascular: As Per HPI - Neurological Neurological: As Per HPI Past Patient History - Infectious Disease Hx of Infectious Diseases: None - Tetanus Immunizations Tetanus Immunization: Unknown - Past Medical History & Family History Past Medical History?: No - Past Social History Smoking Status: Former Smoker Chewing Tobacco Use: No Cigar Use: No - CARDIAC Hx Cardiac Disorders: No Hx Congestive Heart Failure: Yes - NEUROLOGICAL Hx Neurological Disorder: Yes Hx Alzheimer's Disease: Yes HX Cerebrovascular Accident: Yes Hx Dementia: Yes - MUSCULOSKELETAL/RHEUMATOLOGICAL Hx Falls: Yes - PSYCHIATRIC Hx Substance Use: No - SURGICAL HISTORY Other/Comment: colon surgery - ANESTHESIA Hx Anesthesia Reactions: No Hx Malignant Hyperthermia: No Meds Allergies/Adverse Reactions: Allergies Allergy/AdvReac Type Severity Reaction Status Date / Time No Known Allergies Allergy Verified 05/12/17 00:20 - Medications Medications: Current Medications Albuterol/Ipratropium (Duoneb 3 Mg/0.5 Mg (3 Ml) Ud) 3 ml IH [id number] [facility] Last Admin: 05/12/17 07:47 Dose: 3 ml Heparin Sodium (Porcine) (Heparin) 5,000 units SC Q8 [facility] PRN Reason: Protocol Propofol (Diprivan) 1,000 mg in 100 mls @ 1.293 mls/hr IV .Q24H PRN; Protocol; 5 MCG/KG/MIN PRN Reason: TITRATE PER MD ORDER Last Titration: 05/12/17 08:05 Dose: 10 mcg/kg/min, 2.585 mls/hr Vancomycin HCl (Vancomycin 1gm) 1 gm in 250 mls @ 167 mls/hr IVPB Q12H [facility] PRN Reason: Protocol Meropenem 1g/NS 100mL IVPB (Meropenem 1g/Ns 100ml Ivpb) 1 gm in 100 mls @ 100 mls/hr IVPB Q8 [facility] PRN Reason: Protocol Stop: 05/19/17 06:31 Last Admin: 05/12/17 08:29 Dose: 100 mls/hr Doxycycline Hyclate 100 mg/ (Sodium Chloride) 100 mls @ 100 mls/hr IVPB Q12 [facility] PRN Reason: Protocol Last Admin: 05/12/17 09:21 Dose: 100 mls/hr Sodium Chloride (Sodium Chloride 0.9%) 1,000 mls @ 100 mls/hr IV .Q10H [facility] Last Admin: 05/12/17 08:30 Dose: 100 mls/hr Metronidazole (Flagyl) 500 mg in 100 mls @ 100 mls/hr IVPB Q8 [facility] PRN Reason: Protocol Last Admin: 05/12/17 08:29 Dose: 100 mls/hr Physical Exam - Head Exam Head Exam: ATRAUMATIC - Eye Exam Eye Exam: EOMI - ENT Exam ENT Exam: Mucous Membranes Dry - Neck Exam Neck exam: Positive for: Normal Inspection - Respiratory Exam Respiratory Exam: Accessory Muscle Use, Decreased Breath Sounds, Rales, Rhonchi - Cardiovascular Exam Cardiovascular Exam: RRR, +S1, +S2, Systolic Murmur - GI/Abdominal Exam GI & Abdominal Exam: Normal Bowel Sounds - Extremities Exam Extremities exam: Positive for: normal inspection, pedal pulses present - Neurological Exam Neurological exam: Altered, Motor Sensory Deficit - Additional Findings Additional findings: iNTUBATED ON VENT- FULL EXAMINATION IS NOT POSSIBLE Results - Vital Signs Recent Vital Signs: Last Vital Signs Temp 99 F 05/12/17 06:00 Pulse 125 H 05/12/17 05:24 Resp 26 H 05/12/17 05:24 BP 130/84 05/12/17 05:13 Pulse Ox 100 05/12/17 05:24 - Labs Result Diagrams: 05/12/17 05:10 05/12/17 05:10 Labs: Laboratory Results - last 24 hr 05/12/17 05/12/17 05/12/17 03:26 05:10 05:10 WBC 32.6 H* D RBC 3.30 L Hgb 10.3 L Hct 31.6 L MCV 95.8 MCH 31.2 MCHC 32.6 RDW 13.6 Plt Count 330 MPV 9.5 Gran % Full Stack Software Engineer Lymph % (Auto) Full Stack Software Engineer [place] % (Auto) Full Stack Software Engineer Eos % (Auto) Full Stack Software Engineer Baso % (Auto) Full Stack Software Engineer Gran # Full Stack Software Engineer Lymph # Full Stack Software Engineer [place] # Full Stack Software Engineer Eos # Full Stack Software Engineer Baso # Full Stack Software Engineer Neutrophils % (Manual) 83 H Band Neutrophils % 10 H Lymphocytes % (Manual) 3 L Monocytes % (Manual) 4 Platelet Evaluation Normal pCO2 pO2 187 H HCO3 ABG pH ABG Total CO2 ABG O2 Saturation ABG O2 Content ABG Base Excess ABG Hemoglobin ABG Carboxyhemoglobin POC ABG HHb (Measured) ABG Methemoglobin ABG O2 Capacity ABG Potassium VBG pH 7.27 L VBG pCO2 51.0 VBG HCO3 23.4 VBG Total CO2 25.0 VBG O2 Sat (Calc) 99.7 H VBG Base Excess -4.0 L VBG Potassium 3.7 Hgb O2 Saturation Sodium 135.0 137 Chloride 105.0 105 Glucose 169 H Lactate 4.9 H* FiO2 21.0 Potassium 4.5 Carbon Dioxide 22 Anion Gap 15 BUN 34 H Creatinine 0.6 Est GFR ( Amer) > 60 Est GFR (Non-Af Amer) > 60 Random Glucose 162 H Calcium 8.1 L Phosphorus 4.9 H Magnesium 1.9 Total Bilirubin 0.4 AST 54 ALT 68 H Alkaline Phosphatase 101 Total Protein 6.1 Albumin 3.1 Globulin 3.0 Albumin/Globulin Ratio 1.1 Arterial Blood Potassium Venous Blood Potassium 3.7 05/12/17 05/12/17 05:18 06:45 WBC RBC Hgb Hct MCV MCH MCHC RDW Plt Count MPV Gran % Lymph % (Auto) [place] % (Auto) Eos % (Auto) Baso % (Auto) Gran # Lymph # [place] # Eos # Baso # Neutrophils % (Manual) Band Neutrophils % Lymphocytes % (Manual) Monocytes % (Manual) Platelet Evaluation pCO2 54 H 44 pO2 81.0 344.0 H HCO3 20.6 L 23.2 ABG pH 7.19 L* 7.33 L ABG Total CO2 22.3 24.6 ABG O2 Saturation 97.2 99.8 H ABG O2 Content 14.0 L ABG Base Excess -7.5 L -2.7 L ABG Hemoglobin 9.6 L ABG Carboxyhemoglobin 1.6 H POC ABG HHb (Measured) 0.2 ABG Methemoglobin 1.3 ABG O2 Capacity 14.0 L ABG Potassium 3.8 VBG pH VBG pCO2 VBG HCO3 VBG Total CO2 VBG O2 Sat (Calc) VBG Base Excess VBG Potassium Hgb O2 Saturation 96.9 Sodium 139.0 Chloride 113.0 H Glucose 148 H Lactate 3.4 H FiO2 100.0 100.0 Potassium Carbon Dioxide Anion Gap BUN Creatinine Est GFR ( Amer) Est GFR (Non-Af Amer) Random Glucose Calcium Phosphorus Magnesium Total Bilirubin AST ALT Alkaline Phosphatase Total Protein Albumin Globulin Albumin/Globulin Ratio Arterial Blood Potassium 3.8 Venous Blood Potassium - EKG Data EKG Interpreted by: Myself - Imaging and Cardiology Chest x-ray Status: Image reviewed by me (lll pn) Assessment & Plan - Assessment and Plan (Free Text) Assessment: LLL PNEUMONIA RESPIRATORY FAILURE INTUBATION EMESIS- SUSPECTED ASPIRATION Plan: VENT MANEGEMENT REPEAT ABG CHECK CULTURES TREAT FOR PN WITH BROAD SPECTRUM ANTIBIOTICS. ATYPICAL ORGANISMS BEING EVALUATED BY HO. VIGOROUS BRONCHODILATORS AND MNINHALED CORTICOSTEROIDS. CHEST PT PERCUSSION. ETC. WILL FOLLOW CLOSELY, NEEDED.
--- NOTE | 2017-05-12 10:35 | CP.PCM.CON ---
History of Present Illness - History of Present Illness History of Present Illness: 89 year old male with PMH of HTN, CVA, dementia, history of colon surgery, S/P orchiectomy and hydrocelectomy May 2017 was brought in from the [facility] because the patient had decreased appetite and looked weak. He was then found to be respiratory distress last night and was brought here. In the ED, he was intubated because of severe respiratory distress. CT scan of the abdomen and pelvis showed fecal impaction with colitis as well as left lower lobe pneumonia. He is now in the ICU for closer observation and management. Infectious Diseases consult is requested to further evaluate and manage. Review of Systems - Review of Systems Systems not reviewed;Unavailable: Intubated Past Patient History - Infectious Disease Hx of Infectious Diseases: None - Past Social History Smoking Status: Never Smoked - CARDIAC Hx Cardiac Disorders: No - NEUROLOGICAL Hx Neurological Disorder: Yes HX Cerebrovascular Accident: Yes Hx Dementia: Yes - MUSCULOSKELETAL/RHEUMATOLOGICAL Hx Falls: Yes - PSYCHIATRIC Hx Substance Use: No - SURGICAL HISTORY Other/Comment: colon surgery - ANESTHESIA Hx Anesthesia Reactions: No Hx Malignant Hyperthermia: No Meds Allergies/Adverse Reactions: Allergies Allergy/AdvReac Type Severity Reaction Status Date / Time No Known Allergies Allergy Verified 05/12/17 00:20 - Medications Medications: Current Medications Albuterol/Ipratropium (Duoneb 3 Mg/0.5 Mg (3 Ml) Ud) 3 ml IH [id number] [facility] Heparin Sodium (Porcine) (Heparin) 5,000 units SC Q8 [facility] PRN Reason: Protocol Sodium Chloride (Sodium Chloride 0.9%) 1,000 mls @ 150 mls/hr IV .Q6H40M [facility] Last Admin: 05/12/17 00:53 Dose: 150 mls/hr Propofol (Diprivan) 1,000 mg in 100 mls @ 1.293 mls/hr IV .Q24H PRN; Protocol; 5 MCG/KG/MIN PRN Reason: TITRATE PER MD ORDER Last Titration: 05/12/17 05:16 Dose: 20 mcg/kg/min, 5.171 mls/hr Sodium Bicarbonate 75 meq/ (Sodium Chloride) 1,075 mls @ 125 mls/hr IV .Q8H36M [facility] Vancomycin HCl (Vancomycin 1gm) 1 gm in 250 mls @ 167 mls/hr IVPB Q12H [facility] PRN Reason: Protocol Meropenem 1g/NS 100mL IVPB (Meropenem 1g/Ns 100ml Ivpb) 100 mls @ 100 mls/hr IVPB Q8 [facility] PRN Reason: Protocol Stop: 05/19/17 06:31 Methylprednisolone (Solu-Medrol) 40 mg IVP Q12 [facility] Physical Exam - Constitutional Appears: In Acute Distress, Other (Intubated and sedated, poorly responsive) - Head Exam Head Exam: NORMAL INSPECTION - ENT Exam Additional comments: ET tube in place - Neck Exam Neck exam: Negative for: Meningismus - Respiratory Exam Respiratory Exam: Decreased Breath Sounds - Cardiovascular Exam Cardiovascular Exam: +S1, +S2 - GI/Abdominal Exam GI & Abdominal Exam: Soft. absent: Tenderness Results - Vital Signs Recent Vital Signs: Last Vital Signs Temp 99.1 F 05/12/17 01:04 Pulse 125 H 05/12/17 05:24 Resp 26 H 05/12/17 05:24 BP 130/84 05/12/17 05:13 Pulse Ox 100 05/12/17 05:24 - Labs Result Diagrams: 05/12/17 05:10 05/12/17 05:10 Labs: Laboratory Results - last 24 hr 05/12/17 05/12/17 05/12/17 03:26 05:10 05:10 WBC 32.6 H* D RBC 3.30 L Hgb 10.3 L Hct 31.6 L MCV 95.8 MCH 31.2 MCHC 32.6 RDW 13.6 Plt Count 330 MPV 9.5 Gran % Facilities Supervisor Lymph % (Auto) Facilities Supervisor [place] % (Auto) Facilities Supervisor Eos % (Auto) Facilities Supervisor Baso % (Auto) Facilities Supervisor Gran # Facilities Supervisor Lymph # Facilities Supervisor [place] # Facilities Supervisor Eos # Facilities Supervisor Baso # Facilities Supervisor Neutrophils % (Manual) 83 H Band Neutrophils % 10 H Lymphocytes % (Manual) 3 L Monocytes % (Manual) 4 Platelet Evaluation Normal pCO2 pO2 187 H HCO3 ABG pH ABG Total CO2 ABG O2 Saturation ABG Base Excess ABG Potassium VBG pH 7.27 L VBG pCO2 51.0 VBG HCO3 23.4 VBG Total CO2 25.0 VBG O2 Sat (Calc) 99.7 H VBG Base Excess -4.0 L VBG Potassium 3.7 Sodium 135.0 137 Chloride 105.0 105 Glucose 169 H Lactate 4.9 H* FiO2 21.0 Potassium 4.5 Carbon Dioxide 22 Anion Gap 15 BUN 34 H Creatinine 0.6 Est GFR ( Amer) > 60 Est GFR (Non-Af Amer) > 60 Random Glucose 162 H Calcium 8.1 L Phosphorus 4.9 H Magnesium 1.9 Total Bilirubin 0.4 AST 54 ALT 68 H Alkaline Phosphatase 101 Total Protein 6.1 Albumin 3.1 Globulin 3.0 Albumin/Globulin Ratio 1.1 Arterial Blood Potassium Venous Blood Potassium 3.7 05/12/17 05:18 WBC RBC Hgb Hct MCV MCH MCHC RDW Plt Count MPV Gran % Lymph % (Auto) [place] % (Auto) Eos % (Auto) Baso % (Auto) Gran # Lymph # [place] # Eos # Baso # Neutrophils % (Manual) Band Neutrophils % Lymphocytes % (Manual) Monocytes % (Manual) Platelet Evaluation pCO2 54 H pO2 81.0 HCO3 20.6 L ABG pH 7.19 L* ABG Total CO2 22.3 ABG O2 Saturation 97.2 ABG Base Excess -7.5 L ABG Potassium 3.8 VBG pH VBG pCO2 VBG HCO3 VBG Total CO2 VBG O2 Sat (Calc) VBG Base Excess VBG Potassium Sodium 139.0 Chloride 113.0 H Glucose 148 H Lactate 3.4 H FiO2 100.0 Potassium Carbon Dioxide Anion Gap BUN Creatinine Est GFR ( Amer) Est GFR (Non-Af Amer) Random Glucose Calcium Phosphorus Magnesium Total Bilirubin AST ALT Alkaline Phosphatase Total Protein Albumin Globulin Albumin/Globulin Ratio Arterial Blood Potassium 3.8 Venous Blood Potassium Assessment & Plan - Assessment and Plan (Free Text) Plan: Assessment Severe sepsis with acute hypoxic ventilator-dependent respiratory failure due to new onset left lower lobe healthcare-associated pneumonia with possible gram positive cocci and/or gram negative bacilli and/or atypical organisms; patient also with colitis associated with fecal impaction HTN CVA dementia history of colon surgery S/P orchiectomy and hydrocelectomy May 2017 Plan Started the patient on Vancomycin, Merrem and Doxycycline pending blood, sputum cx, PCT, urine Legionella Ag; reviewed CT of the abdomen and pelvis will monitor clinically patient is in critical condition
--- NOTE | 2017-05-12 13:09 | CP.PCM.CON ---
<Denia Valdez - Last Filed: 05/12/17 13:15> History of Present Illness - History of Present Illness History of Present Illness: S&E earlier today, chart reviewed. Request for consult is for Colitis. HPI: This is a 89 year old male with a PMH of Dementia, CVA, Testicular mass, s/ p recent Orchiectomy & Hydrocelectomy was sent to the ER from the subacute rehab for SOB. The patient was called [facility]PS[facility] in the ER. The patient was in respiratory failure and intubated, the patient had ct scan found to have abdominal distention, found to have fecal impaction, stool in the ascending and transverse colon and biliary dilation 12 mm. Unable to obtain medical history from patient, no family at bedside, obtain from medical/nursing staff, and chart. Patient just receive Mineral oil retention enema. No reports of bleeding. PMH: CVA, dementia,Testicular cancer PSH: 05/03/17: Orchiectomy for testicular mass and epididymitis FHX: noncontributory at this time SOcial HX: no hx of smoking, etoh, drugs Allergies: NKDA MEDS: reviewed as per GABBI ROS: systems reviewed, with positive findings Past Patient History - Infectious Disease Hx of Infectious Diseases: None - Tetanus Immunizations Tetanus Immunization: Unknown - Past Medical History & Family History Past Medical History?: No - Past Social History Smoking Status: Never Smoked - CARDIAC Hx Cardiac Disorders: No - NEUROLOGICAL Hx Neurological Disorder: Yes HX Cerebrovascular Accident: Yes Hx Dementia: Yes - MUSCULOSKELETAL/RHEUMATOLOGICAL Hx Falls: Yes - PSYCHIATRIC Hx Substance Use: No - SURGICAL HISTORY Other/Comment: colon surgery - ANESTHESIA Hx Anesthesia Reactions: No Hx Malignant Hyperthermia: No Meds Allergies/Adverse Reactions: Allergies Allergy/AdvReac Type Severity Reaction Status Date / Time No Known Allergies Allergy Verified 05/12/17 00:20 - Medications Medications: Current Medications Albuterol/Ipratropium (Duoneb 3 Mg/0.5 Mg (3 Ml) Ud) 3 ml IH [id number] [facility] Last Admin: 05/12/17 07:47 Dose: 3 ml Budesonide (Pulmicort Respules) 0.5 mg IH BIDRESP [facility] Donepezil HCl (Aricept) 10 mg PO HS [facility] Heparin Sodium (Porcine) (Heparin) 5,000 units SC Q8 [facility] PRN Reason: Protocol Propofol (Diprivan) 1,000 mg in 100 mls @ 1.293 mls/hr IV .Q24H PRN; Protocol; 5 MCG/KG/MIN PRN Reason: TITRATE PER MD ORDER Last Titration: 05/12/17 08:05 Dose: 10 mcg/kg/min, 2.585 mls/hr Vancomycin HCl (Vancomycin 1gm) 1 gm in 250 mls @ 167 mls/hr IVPB Q12H [facility] PRN Reason: Protocol Meropenem 1g/NS 100mL IVPB (Meropenem 1g/Ns 100ml Ivpb) 1 gm in 100 mls @ 100 mls/hr IVPB Q8 [facility] PRN Reason: Protocol Stop: 05/19/17 06:31 Last Admin: 05/12/17 08:29 Dose: 100 mls/hr Doxycycline Hyclate 100 mg/ (Sodium Chloride) 100 mls @ 100 mls/hr IVPB Q12 [facility] PRN Reason: Protocol Last Admin: 05/12/17 09:21 Dose: 100 mls/hr Sodium Chloride (Sodium Chloride 0.9%) 1,000 mls @ 100 mls/hr IV .Q10H [facility] Last Admin: 05/12/17 08:30 Dose: 100 mls/hr Metronidazole (Flagyl) 500 mg in 100 mls @ 100 mls/hr IVPB Q8 [facility] PRN Reason: Protocol Last Admin: 05/12/17 08:29 Dose: 100 mls/hr Physical Exam - Constitutional Appears: No Acute Distress Additional comments: intubated - Head Exam Head Exam: NORMAL INSPECTION - Eye Exam Eye Exam: Normal appearance. absent: Scleral icterus - ENT Exam ENT Exam: Mucous Membranes Moist - Neck Exam Neck exam: Positive for: Normal Inspection - Respiratory Exam Respiratory Exam: Decreased Breath Sounds, Rhonchi, NORMAL BREATHING PATTERN. absent: Respiratory Distress - Cardiovascular Exam Cardiovascular Exam: +S1, +S2 - GI/Abdominal Exam GI & Abdominal Exam: Distended, Hypoactive Bowel Sounds. absent: Guarding, Rebound, Tenderness - Rectal Exam Rectal Exam: Fecal Impaction (disimpacted, brown stool,no bleeding) - Exam Additional comments: ulcerated tip of penis, surgical incision noticed on penis to scrotum, no bleeding - Extremities Exam Extremities exam: Positive for: pedal pulses present. Negative for: pedal edema - Neurological Exam Neurological exam: Altered Additional comments: intubated and sedated - Skin Skin Exam: Dry, Warm Results - Vital Signs Recent Vital Signs: Last Vital Signs Temp 98.2 F 05/12/17 12:20 Pulse 102 H 05/12/17 12:30 Resp 23 05/12/17 12:27 BP 103/73 05/12/17 12:27 Pulse Ox 96 05/12/17 12:30 - Labs Result Diagrams: 05/12/17 05:10 05/12/17 05:10 Labs: Laboratory Results - last 24 hr 05/12/17 05/12/17 05/12/17 03:26 05:10 05:10 WBC 32.6 H* D RBC 3.30 L Hgb 10.3 L Hct 31.6 L MCV 95.8 MCH 31.2 MCHC 32.6 RDW 13.6 Plt Count 330 MPV 9.5 Gran % [employer] Lymph % (Auto) [employer] Operator [place] % (Auto) [employer] Operator Eos % (Auto) [employer] Operator Baso % (Auto) [employer] Operator Gran # [employer]ope [employer] Operator Lymph # [employer] Operator [place] # [employer] Operator Eos # [employer] Operator Baso # [employer] Operator Neutrophils % (Manual) 83 H Band Neutrophils % 10 H Lymphocytes % (Manual) 3 L Monocytes % (Manual) 4 Platelet Evaluation Normal pCO2 pO2 187 H HCO3 ABG pH ABG Total CO2 ABG O2 Saturation ABG O2 Content ABG Base Excess ABG Hemoglobin ABG Carboxyhemoglobin POC ABG HHb (Measured) ABG Methemoglobin ABG O2 Capacity ABG Potassium VBG pH 7.27 L VBG pCO2 51.0 VBG HCO3 23.4 VBG Total CO2 25.0 VBG O2 Sat (Calc) 99.7 H VBG Base Excess -4.0 L VBG Potassium 3.7 Hgb O2 Saturation Sodium 135.0 137 Chloride 105.0 105 Glucose 169 H Lactate 4.9 H* FiO2 21.0 Potassium 4.5 Carbon Dioxide 22 Anion Gap 15 BUN 34 H Creatinine 0.6 Est GFR ( Amer) > 60 Est GFR (Non-Af Amer) > 60 Random Glucose 162 H Calcium 8.1 L Phosphorus 4.9 H Magnesium 1.9 Total Bilirubin 0.4 AST 54 ALT 68 H Alkaline Phosphatase 101 Total Protein 6.1 Albumin 3.1 Globulin 3.0 Albumin/Globulin Ratio 1.1 Arterial Blood Potassium Venous Blood Potassium 3.7 Ur L.pneumophila Ag 05/12/17 05/12/17 05/12/17 05:18 06:30 06:45 WBC RBC Hgb Hct MCV MCH MCHC RDW Plt Count MPV Gran % Lymph % (Auto) [place] % (Auto) Eos % (Auto) Baso % (Auto) Gran # Lymph # [place] # Eos # Baso # Neutrophils % (Manual) Band Neutrophils % Lymphocytes % (Manual) Monocytes % (Manual) Platelet Evaluation pCO2 54 H 44 pO2 81.0 344.0 H HCO3 20.6 L 23.2 ABG pH 7.19 L* 7.33 L ABG Total CO2 22.3 24.6 ABG O2 Saturation 97.2 99.8 H ABG O2 Content 14.0 L ABG Base Excess -7.5 L -2.7 L ABG Hemoglobin 9.6 L ABG Carboxyhemoglobin 1.6 H POC ABG HHb (Measured) 0.2 ABG Methemoglobin 1.3 ABG O2 Capacity 14.0 L ABG Potassium 3.8 VBG pH VBG pCO2 VBG HCO3 VBG Total CO2 VBG O2 Sat (Calc) VBG Base Excess VBG Potassium Hgb O2 Saturation 96.9 Sodium 139.0 Chloride 113.0 H Glucose 148 H Lactate 3.4 H FiO2 100.0 100.0 Potassium Carbon Dioxide Anion Gap BUN Creatinine Est GFR ( Amer) Est GFR (Non-Af Amer) Random Glucose Calcium Phosphorus Magnesium Total Bilirubin AST ALT Alkaline Phosphatase Total Protein Albumin Globulin Albumin/Globulin Ratio Arterial Blood Potassium 3.8 Venous Blood Potassium Ur L.pneumophila Ag Negative Assessment & Plan - Assessment and Plan (Free Text) Assessment: ASSESSMENT: Sepsis Respirattory Failure/intubated Pneumonia Stercoral Colitis/fecal impaction Dilated biliary ducts Dementia CVA PLAN: stool cdiff on IV antibiotics: doxcycycline/flagyl/vancomycin GI prophylaxsis:m start Protonix 40 mg daily NPO, IVF for hydration DVT prophylaxsis abdominal US Ct scan films reviewed w/ Dr. John: severe fecal impaction with bowel dilatation, spoke to ICU team, don't recommend any further enemas at this time, disimpacted? cholecystctomy Thank you for this consult and for allowing us to participate in your patient care, will make further recommendation based upon clinical course. Seen and discussed w/ Dr. John. <Fernando John V - Last Filed: 05/13/17 00:16> Meds - Medications Medications: Current Medications Albuterol/Ipratropium (Duoneb 3 Mg/0.5 Mg (3 Ml) Ud) 3 ml IH [id number] [facility] Last Admin: 05/12/17 19:45 Dose: 3 ml Budesonide (Pulmicort Respules) 0.5 mg IH BIDRESP [facility] Last Admin: 05/12/17 19:45 Dose: 0.5 mg Donepezil HCl (Aricept) 10 mg PO HS [facility] Heparin Sodium (Porcine) (Heparin) 5,000 units SC Q8 [facility] PRN Reason: Protocol Last Admin: 05/12/17 21:23 Dose: 5,000 units Propofol (Diprivan) 1,000 mg in 100 mls @ 1.293 mls/hr IV .Q24H PRN; Protocol; 5 MCG/KG/MIN PRN Reason: TITRATE PER MD ORDER Last Titration: 05/12/17 08:05 Dose: 10 mcg/kg/min, 2.585 mls/hr Vancomycin HCl (Vancomycin 1gm) 1 gm in 250 mls @ 167 mls/hr IVPB Q12H [facility] PRN Reason: Protocol Last Admin: 05/12/17 14:07 Dose: 167 mls/hr Meropenem 1g/NS 100mL IVPB (Meropenem 1g/Ns 100ml Ivpb) 1 gm in 100 mls @ 100 mls/hr IVPB Q8 [facility] PRN Reason: Protocol Stop: 05/19/17 06:31 Last Admin: 05/12/17 21:22 Dose: 100 mls/hr Doxycycline Hyclate 100 mg/ (Sodium Chloride) 100 mls @ 100 mls/hr IVPB Q12 [facility] PRN Reason: Protocol Last Admin: 05/12/17 21:21 Dose: 100 mls/hr Sodium Chloride (Sodium Chloride 0.9%) 1,000 mls @ 100 mls/hr IV .Q10H [facility] Last Admin: 05/12/17 08:30 Dose: 100 mls/hr Metronidazole (Flagyl) 500 mg in 100 mls @ 100 mls/hr IVPB Q8 [facility] PRN Reason: Protocol Last Admin: 05/12/17 21:23 Dose: 100 mls/hr Pantoprazole Sodium (Protonix Inj) 40 mg IVP DAILY [facility] Last Admin: 05/12/17 14:06 Dose: 40 mg Results - Vital Signs Recent Vital Signs: Last Vital Signs Temp 98.7 F 05/12/17 16:00 Pulse 76 05/12/17 19:45 Resp 28 H 05/12/17 13:20 BP 128/46 L 05/12/17 14:00 Pulse Ox 98 05/12/17 19:45 - Labs Result Diagrams: 05/12/17 05:10 05/12/17 05:10 Labs: Laboratory Results - last 24 hr 05/12/17 05/12/17 05/12/17 03:26 05:10 05:10 WBC 32.6 H* D RBC 3.30 L Hgb 10.3 L Hct 31.6 L MCV 95.8 MCH 31.2 MCHC 32.6 RDW 13.6 Plt Count 330 MPV 9.5 Gran % [employer] Operator Lymph % (Auto) [employer] Operator [place] % (Auto) [employer] Operator Eos % (Auto) [employer] Operator Baso % (Auto) [employer] Operator Gran # [employer] Operator Lymph # [employer] Operator [place] # [employer] Operator Eos # [employer] Operator Baso # [employer] Operator Neutrophils % (Manual) 83 H Band Neutrophils % 10 H Lymphocytes % (Manual) 3 L Monocytes % (Manual) 4 Platelet Evaluation Normal pCO2 pO2 187 H HCO3 ABG pH ABG Total CO2 ABG O2 Saturation ABG O2 Content ABG Base Excess ABG Hemoglobin ABG Carboxyhemoglobin POC ABG HHb (Measured) ABG Methemoglobin ABG O2 Capacity ABG Potassium VBG pH 7.27 L VBG pCO2 51.0 VBG HCO3 23.4 VBG Total CO2 25.0 VBG O2 Sat (Calc) 99.7 H VBG Base Excess -4.0 L VBG Potassium 3.7 Hgb O2 Saturation Sodium 135.0 137 Chloride 105.0 105 Glucose 169 H Lactate 4.9 H* FiO2 21.0 Potassium 4.5 Carbon Dioxide 22 Anion Gap 15 BUN 34 H Creatinine 0.6 Est GFR ( Amer) > 60 Est GFR (Non-Af Amer) > 60 Random Glucose 162 H Calcium 8.1 L Phosphorus 4.9 H Magnesium 1.9 Total Bilirubin 0.4 AST 54 ALT 68 H Alkaline Phosphatase 101 Total Protein 6.1 Albumin 3.1 Globulin 3.0 Albumin/Globulin Ratio 1.1 Procalcitonin Arterial Blood Potassium Venous Blood Potassium 3.7 Ur L.pneumophila Ag 0705/12/17 05/12/17 05:10 05:18 06:30 WBC RBC Hgb Hct MCV MCH MCHC RDW Plt Count MPV Gran % Lymph % (Auto) [place] % (Auto) Eos % (Auto) Baso % (Auto) Gran # Lymph # [place] # Eos # Baso # Neutrophils % (Manual) Band Neutrophils % Lymphocytes % (Manual) Monocytes % (Manual) Platelet Evaluation pCO2 54 H pO2 81.0 HCO3 20.6 L ABG pH 7.19 L* ABG Total CO2 22.3 ABG O2 Saturation 97.2 ABG O2 Content ABG Base Excess -7.5 L ABG Hemoglobin ABG Carboxyhemoglobin POC ABG HHb (Measured) ABG Methemoglobin ABG O2 Capacity ABG Potassium 3.8 VBG pH VBG pCO2 VBG HCO3 VBG Total CO2 VBG O2 Sat (Calc) VBG Base Excess VBG Potassium Hgb O2 Saturation Sodium 139.0 Chloride 113.0 H Glucose 148 H Lactate 3.4 H FiO2 100.0 Potassium Carbon Dioxide Anion Gap BUN Creatinine Est GFR ( Amer) Est GFR (Non-Af Amer) Random Glucose Calcium Phosphorus Magnesium Total Bilirubin AST ALT Alkaline Phosphatase Total Protein Albumin Globulin Albumin/Globulin Ratio Procalcitonin 0.69 H Arterial Blood Potassium 3.8 Venous Blood Potassium Ur L.pneumophila Ag Negative 05/12/17 06:45 WBC RBC Hgb Hct MCV MCH MCHC RDW Plt Count MPV Gran % Lymph % (Auto) [place] % (Auto) Eos % (Auto) Baso % (Auto) Gran # Lymph # [place] # Eos # Baso # Neutrophils % (Manual) Band Neutrophils % Lymphocytes % (Manual) Monocytes % (Manual) Platelet Evaluation pCO2 44 pO2 344.0 H HCO3 23.2 ABG pH 7.33 L ABG Total CO2 24.6 ABG O2 Saturation 99.8 H ABG O2 Content 14.0 L ABG Base Excess -2.7 L ABG Hemoglobin 9.6 L ABG Carboxyhemoglobin 1.6 H POC ABG HHb (Measured) 0.2 ABG Methemoglobin 1.3 ABG O2 Capacity 14.0 L ABG Potassium VBG pH VBG pCO2 VBG HCO3 VBG Total CO2 VBG O2 Sat (Calc) VBG Base Excess VBG Potassium Hgb O2 Saturation 96.9 Sodium Chloride Glucose Lactate FiO2 100.0 Potassium Carbon Dioxide Anion Gap BUN Creatinine Est GFR ( Amer) Est GFR (Non-Af Amer) Random Glucose Calcium Phosphorus Magnesium Total Bilirubin AST ALT Alkaline Phosphatase Total Protein Albumin Globulin Albumin/Globulin Ratio Procalcitonin Arterial Blood Potassium Venous Blood Potassium Ur L.pneumophila Ag Assessment & Plan - Assessment and Plan (Free Text) Plan: this Attending/Attestation - Attestation I have personally seen and examined this patient.: Yes I have fully participated in the care of the patient.: Yes I have reviewed all pertinent clinical information: Yes Notes (Text): sepsis Fecal impaction with distanded colon. Manual disimpation was done .Significant improvement of abdominal distention was noticed post disimpaction. Also noticed rectal wall thickening in ct. r/o c.diff .Patient was on steroid and antibiotics on admission discussed with Hydrodynamics Professor Thank you very much for allowing us to participate in the care of the patient
[2017-05-12] MEDS: Vancomycin 1gm in NS 250ml 1 GM/250 ML BAG IVPB SCH (14:07)
[2017-05-12] MEDS: Budesonide 0.5 mg/2 ml Inhal Susp UD IH SCH (19:45)
--- NOTE | 2017-05-12 23:15 | PCM.URO ---
Urology Progress Note - Subjective Abdominal Pain: Yes Weak Stream: Yes (pt has coleman) Other: scrotal exam normal post op - Objective Lab Studies: Reviewed (noted) Lab Results Last 24 Hours: Laboratory Results - last 24 hr 05/12/17 05/12/17 05/12/17 03:26 05:10 05:10 WBC 32.6 H* D RBC 3.30 L Hgb 10.3 L Hct 31.6 L MCV 95.8 MCH 31.2 MCHC 32.6 RDW 13.6 Plt Count 330 MPV 9.5 Gran % Streetcar Operator Lymph % (Auto) Streetcar Operator Wheeler % (Auto) Streetcar Operator Eos % (Auto) Streetcar Operator Baso % (Auto) Streetcar Operator Gran # Streetcar Operator Lymph # Streetcar Operator Wheeler # Streetcar Operator Eos # Streetcar Operator Baso # Streetcar Operator Neutrophils % (Manual) 83 H Band Neutrophils % 10 H Lymphocytes % (Manual) 3 L Monocytes % (Manual) 4 Platelet Evaluation Normal pCO2 pO2 187 H HCO3 ABG pH ABG Total CO2 ABG O2 Saturation ABG O2 Content ABG Base Excess ABG Hemoglobin ABG Carboxyhemoglobin POC ABG HHb (Measured) ABG Methemoglobin ABG O2 Capacity ABG Potassium VBG pH 7.27 L VBG pCO2 51.0 VBG HCO3 23.4 VBG Total CO2 25.0 VBG O2 Sat (Calc) 99.7 H VBG Base Excess -4.0 L VBG Potassium 3.7 Hgb O2 Saturation Sodium 135.0 137 Chloride 105.0 105 Glucose 169 H Lactate 4.9 H* FiO2 21.0 Potassium 4.5 Carbon Dioxide 22 Anion Gap 15 BUN 34 H Creatinine 0.6 Est GFR ( Amer) > 60 Est GFR (Non-Af Amer) > 60 Random Glucose 162 H Calcium 8.1 L Phosphorus 4.9 H Magnesium 1.9 Total Bilirubin 0.4 AST 54 ALT 68 H Alkaline Phosphatase 101 Total Protein 6.1 Albumin 3.1 Globulin 3.0 Albumin/Globulin Ratio 1.1 Procalcitonin Arterial Blood Potassium Venous Blood Potassium 3.7 Ur L.pneumophila Ag 05/12/17 05/12/17 05/12/17 05:10 05:18 06:30 WBC RBC Hgb Hct MCV MCH MCHC RDW Plt Count MPV Gran % Lymph % (Auto) Wheeler % (Auto) Eos % (Auto) Baso % (Auto) Gran # Lymph # Wheeler # Eos # Baso # Neutrophils % (Manual) Band Neutrophils % Lymphocytes % (Manual) Monocytes % (Manual) Platelet Evaluation pCO2 54 H pO2 81.0 HCO3 20.6 L ABG pH 7.19 L* ABG Total CO2 22.3 ABG O2 Saturation 97.2 ABG O2 Content ABG Base Excess -7.5 L ABG Hemoglobin ABG Carboxyhemoglobin POC ABG HHb (Measured) ABG Methemoglobin ABG O2 Capacity ABG Potassium 3.8 VBG pH VBG pCO2 VBG HCO3 VBG Total CO2 VBG O2 Sat (Calc) VBG Base Excess VBG Potassium Hgb O2 Saturation Sodium 139.0 Chloride 113.0 H Glucose 148 H Lactate 3.4 H FiO2 100.0 Potassium Carbon Dioxide Anion Gap BUN Creatinine Est GFR ( Amer) Est GFR (Non-Af Amer) Random Glucose Calcium Phosphorus Magnesium Total Bilirubin AST ALT Alkaline Phosphatase Total Protein Albumin Globulin Albumin/Globulin Ratio Procalcitonin 0.69 H Arterial Blood Potassium 3.8 Venous Blood Potassium Ur L.pneumophila Ag Negative 05/12/17 06:45 WBC RBC Hgb Hct MCV MCH MCHC RDW Plt Count MPV Gran % Lymph % (Auto) Wheeler % (Auto) Eos % (Auto) Baso % (Auto) Gran # Lymph # Wheeler # Eos # Baso # Neutrophils % (Manual) Band Neutrophils % Lymphocytes % (Manual) Monocytes % (Manual) Platelet Evaluation pCO2 44 pO2 344.0 H HCO3 23.2 ABG pH 7.33 L ABG Total CO2 24.6 ABG O2 Saturation 99.8 H ABG O2 Content 14.0 L ABG Base Excess -2.7 L ABG Hemoglobin 9.6 L ABG Carboxyhemoglobin 1.6 H POC ABG HHb (Measured) 0.2 ABG Methemoglobin 1.3 ABG O2 Capacity 14.0 L ABG Potassium VBG pH VBG pCO2 VBG HCO3 VBG Total CO2 VBG O2 Sat (Calc) VBG Base Excess VBG Potassium Hgb O2 Saturation 96.9 Sodium Chloride Glucose Lactate FiO2 100.0 Potassium Carbon Dioxide Anion Gap BUN Creatinine Est GFR ( Amer) Est GFR (Non-Af Amer) Random Glucose Calcium Phosphorus Magnesium Total Bilirubin AST ALT Alkaline Phosphatase Total Protein Albumin Globulin Albumin/Globulin Ratio Procalcitonin Arterial Blood Potassium Venous Blood Potassium Ur L.pneumophila Ag Intake & Output: Intake & Output 07/08/1905/12/17 05/13/17 06:59 18:59 06:59 Intake Total 1 4 Output Total 900 Balance 1 4 -900 Weight 92 lb 7 oz 92 lb Intake: IV 1 4 Output: Urine 900 Urethral (Coleman) 900 Other: Voiding Method Indwelling Catheter Indwelling Catheter Vital Signs: Vital Signs - 24 hr 05/12/17 05/12/17 05/12/17 03:46 04:10 04:58 Temperature Pulse Rate 110 H 145 H 138 H Respiratory 28 H 38 H 23 Rate Blood Pressure 148/90 140/110 H O2 Sat by Pulse 96 83 L 100 Oximetry 05/12/17 05/12/17 05/12/17 05:13 05:24 06:00 Temperature 99 F Pulse Rate 135 H 125 H Respiratory 29 H 26 H Rate Blood Pressure 130/84 O2 Sat by Pulse 100 100 Oximetry 05/12/17 05/12/17 05/12/17 06:49 08:00 09:00 Temperature Pulse Rate 96 H 111 H 111 H Respiratory 23 Rate Blood Pressure 100/73 104/66 O2 Sat by Pulse 95 18 L Oximetry 05/12/17 05/12/17 05/12/17 09:30 10:00 10:49 Temperature 98.7 F Pulse Rate 100 H 104 H 105 H Respiratory 22 18 Rate Blood Pressure 132/82 116/63 O2 Sat by Pulse 96 Oximetry 05/12/17 05/12/17 05/12/17 11:30 12:00 12:20 Temperature 98.5 F 98.2 F Pulse Rate 104 H Respiratory 27 H Rate Blood Pressure 128/54 L O2 Sat by Pulse 96 Oximetry 05/12/17 05/12/17 05/12/17 12:21 12:27 12:30 Temperature Pulse Rate 102 H 111 H 102 H Respiratory 23 Rate Blood Pressure 103/73 O2 Sat by Pulse 96 95 96 Oximetry 05/12/17 05/12/17 05/12/17 12:40 12:50 12:56 Temperature 99 F Pulse Rate 104 H 108 H Respiratory Rate Blood Pressure O2 Sat by Pulse 96 94 L Oximetry 05/12/17 05/12/17 05/12/17 13:00 13:10 13:20 Temperature Pulse Rate 112 H 108 H 110 H Respiratory 28 H Rate Blood Pressure 132/57 L O2 Sat by Pulse 94 L 94 L 100 Oximetry 07/08/1905/12/17 05/12/17 13:30 13:40 13:50 Temperature Pulse Rate 99 H Respiratory Rate Blood Pressure O2 Sat by Pulse 98 99 99 Oximetry 05/12/17 05/12/17 05/12/17 14:00 14:10 14:20 Temperature Pulse Rate 110 H 96 H 106 H Respiratory Rate Blood Pressure 128/46 L O2 Sat by Pulse 100 99 99 Oximetry 05/12/17 05/12/17 05/12/17 14:30 14:40 14:50 Temperature Pulse Rate 99 H 106 H 109 H Respiratory Rate Blood Pressure O2 Sat by Pulse 100 100 100 Oximetry 05/12/17 05/12/17 05/12/17 16:00 18:00 19:45 Temperature 98.7 F Pulse Rate 101 H 76 Respiratory Rate Blood Pressure O2 Sat by Pulse 98 Oximetry - Physical Exam Abdominal Exam: Soft Wound: Clean, Healing Well Urinary Catheter Draining Well: Yes - Male Phallus: Normal Scrotum: Normal, Erythema, Edema, Hydrocele, Lesion, Varicocele Testes: Normal: Left (normal post op changes) - Plan Pulmonary Toilet: Yes Wound Care: Yes
[2017-05-13] MEDS: Albuterol-Ipratrop 3 mg / 0.5 (3 ml) UD IH SCH ×4 (02:57→20:24)
[2017-05-13] MEDS: Vancomycin 1gm in NS 250ml 1 GM/250 ML BAG IVPB SCH ×2 (05:20→12:12)
[2017-05-13] MEDS: Meropenem 1g/NS 100mL IVPB 1 GM/100 ML PIGGYBACK IVPB SCH ×2 (05:57→15:13)
[2017-05-13] MEDS: metroNIDAZOLE IV 500 mg/100 ml 500 MG/100 ML BAG IVPB SCH ×3 (05:59→21:16)
[2017-05-13 06:05] LABS: ALB/GLOB RATIO 0.9 (1.1-1.8); ALBUMIN 2.4 g/dL (3.0-4.8); ALT/SGPT 82 U/L (7-56); AST/SGOT 95 U/L (15-59); BLOOD UREA NITROGEN 21 mg/dL (7-21); CALCIUM 8.2 mg/dL (8.4-10.5); GFR AFRICAN-AMERICAN > 60; GFR NON-AFRICAN AMERICAN > 60
[2017-05-13 06:12] LABS: HEMOGLOBIN 9.1 gm/dL (14.0-18.0); MEAN CELL VOLUME 95.3 fL (80.0-105.0); MEAN CORPUSCULAR HEMOGLOBIN 30.3 pg (25.0-35.0); MEAN CORPUSCULAR HGB CONC 31.8 g/dl (31.0-37.0); MEAN PLATELET VOLUME 9.7 fl (7.0-11.0); PLATELET COUNT 285 10^3/uL (120.0-450.0); RED CELL DISTRIBUTION WIDTH 13.8 % (11.5-14.5); WHITE BLOOD COUNT 18.5 10^3/ul (4.5-11.0)
[2017-05-13 06:50] LABS: BAND 8 % (0-2); NEUTROPHIL 84 % (50.0-70.0)
[2017-05-13 06:51] LABS: LYMPHOCYTE 6 % (22.0-35.0); MONOCYTE 2 % (1.0-6.0); PLATELET ESTIMATE NORMAL (NORMAL)
[2017-05-13] MEDS: Budesonide 0.5 mg/2 ml Inhal Susp UD IH SCH ×2 (07:25→20:24)
--- NOTE | 2017-05-13 08:04 | US ---
HISTORY: Biliary dilatation COMPARISON: CT abdomen and pelvis from 05/12/2017 TECHNIQUE: Grayscale imaging was performed. FINDINGS: LIVER: Measures 13.1 cm. Normal echogenicity of the liver parenchyma. No mass. There is mild intrahepatic bile duct dilatation. GALLBLADDER: Surgically absent. COMMON BILE DUCT: Measures 1.2 cm. No stones. No dilatation. PANCREAS: Unremarkable as visualized. No mass. No ductal dilatation. RIGHT KIDNEY: Measures 9.4cm. Normal echogenicity. No mass, or hydronephrosis. There is a 9 mm nonobstructing stone in the lower pole and a 7 mm nonobstructing stone in the upper pole. LEFT KIDNEY: Measures 9.3cm. Normal echogenicity. No mass, or hydronephrosis. There is a 14 mm nonobstructing stone in the lower pole. There is a 1.5 cm simple cyst in the lower pole. SPLEEN: Normal in size and contour. No mass. AORTA: No aneurysmal dilatation. IVC: Unremarkable. OTHER FINDINGS: There is a small right pleural effusion. There is small amount of fluid in the Morison's pouch. IMPRESSION: 1. Bilateral nonobstructing renal stones, the largest in the left lower pole measures 14 mm. 2. Small amount of fluid in the Morison's pouch. 3. Small right pleural effusion. 4. Mild dilatation of the intrahepatic biliary radicles and common bile duct are most compatible with post cholecystectomy status.
--- NOTE | 2017-05-13 09:28 | CP.PCM.PN ---
Subjective - Date & Time of Evaluation Date of Evaluation: 05/13/17 Time of Evaluation: 07:00 - Subjective Subjective: seen in icu off respirator on pap talking some weak a bit better then yesterday Objective - Vital Signs/Intake and Output Vital Signs (last 24 hours): Temp Pulse Resp BP Pulse Ox 98.2 F 88 24 116/62 99 05/13/17 08:00 05/13/17 04:00 05/13/17 04:00 05/13/17 00:00 05/13/17 04:00 Intake and Output: 05/13/17 05/13/17 06:59 18:59 Intake Total 1200 Output Total 1175 Balance 25 - Medications Medications: Current Medications Albuterol/Ipratropium (Duoneb 3 Mg/0.5 Mg (3 Ml) Ud) 3 ml IH [id number] [facility] Last Admin: 05/13/17 07:25 Dose: 3 ml Budesonide (Pulmicort Respules) 0.5 mg IH BIDRESP [facility] Last Admin: 05/13/17 07:25 Dose: 0.5 mg Donepezil HCl (Aricept) 10 mg PO HS [facility] Heparin Sodium (Porcine) (Heparin) 5,000 units SC Q8 [facility] PRN Reason: Protocol Last Admin: 05/13/17 05:56 Dose: 5,000 units Propofol (Diprivan) 1,000 mg in 100 mls @ 1.293 mls/hr IV .Q24H PRN; Protocol; 5 MCG/KG/MIN PRN Reason: TITRATE PER MD ORDER Last Titration: 05/12/17 08:05 Dose: 10 mcg/kg/min, 2.585 mls/hr Vancomycin HCl (Vancomycin 1gm) 1 gm in 250 mls @ 167 mls/hr IVPB Q12H [facility] PRN Reason: Protocol Last Admin: 05/13/17 05:20 Dose: 167 mls/hr Meropenem 1g/NS 100mL IVPB (Meropenem 1g/Ns 100ml Ivpb) 1 gm in 100 mls @ 100 mls/hr IVPB Q8 [facility] PRN Reason: Protocol Stop: 05/19/17 06:31 Last Admin: 05/13/17 05:57 Dose: 100 mls/hr Doxycycline Hyclate 100 mg/ (Sodium Chloride) 100 mls @ 100 mls/hr IVPB Q12 [facility] PRN Reason: Protocol Last Admin: 05/12/17 21:21 Dose: 100 mls/hr Sodium Chloride (Sodium Chloride 0.9%) 1,000 mls @ 100 mls/hr IV .Q10H [facility] Last Admin: 05/12/17 08:30 Dose: 100 mls/hr Metronidazole (Flagyl) 500 mg in 100 mls @ 100 mls/hr IVPB Q8 [facility] PRN Reason: Protocol Last Admin: 05/13/17 05:59 Dose: 100 mls/hr Pantoprazole Sodium (Protonix Inj) 40 mg IVP DAILY [facility] Last Admin: 05/12/17 14:06 Dose: 40 mg - Labs Labs: 05/13/17 05:20 05/13/17 05:20 - Constitutional Appears: In Acute Distress - Head Exam Head Exam: NORMAL INSPECTION - Respiratory Exam Respiratory Exam: Decreased Breath Sounds - Cardiovascular Exam Cardiovascular Exam: REGULAR RHYTHM - GI/Abdominal Exam GI & Abdominal Exam: Soft, Normal Bowel Sounds - Extremities Exam Extremities Exam: Normal Inspection - Neurological Exam Neurological Exam: Alert, Awake - Skin Skin Exam: Warm Assessment and Plan - Assessment and Plan (Free Text) Assessment: severe sepsis s/p a resp failure extubated now daphne kidney stones s/p uro surgery Plan: cont w/ aggressive icu care iv abs o2 pap checking labs wbcs=down to 18 from 33 discussed w/ id
--- NOTE | 2017-05-13 10:40 | CP.PCM.PN ---
Subjective - Date & Time of Evaluation Date of Evaluation: 05/13/17 Time of Evaluation: 09:10 - Subjective Subjective: Patient is now extubated, not in distress currently, no fevers overnight. Objective - Vital Signs/Intake and Output Vital Signs (last 24 hours): Temp Pulse Resp BP Pulse Ox 98.7 F 94 H 28 H 128/46 L 99 05/12/17 16:00 05/13/17 03:05 05/12/17 13:20 05/12/17 14:00 05/13/17 03:05 Intake and Output: 05/12/17 05/13/17 18:59 06:59 Intake Total 4 Output Total 900 Balance 4 -900 - Medications Medications: Current Medications Albuterol/Ipratropium (Duoneb 3 Mg/0.5 Mg (3 Ml) Ud) 3 ml IH [id number] [facility] Last Admin: 05/13/17 02:57 Dose: 3 ml Budesonide (Pulmicort Respules) 0.5 mg IH BIDRESP [facility] Last Admin: 05/12/17 19:45 Dose: 0.5 mg Donepezil HCl (Aricept) 10 mg PO HS [facility] Heparin Sodium (Porcine) (Heparin) 5,000 units SC Q8 [facility] PRN Reason: Protocol Last Admin: 05/13/17 05:56 Dose: 5,000 units Propofol (Diprivan) 1,000 mg in 100 mls @ 1.293 mls/hr IV .Q24H PRN; Protocol; 5 MCG/KG/MIN PRN Reason: TITRATE PER MD ORDER Last Titration: 05/12/17 08:05 Dose: 10 mcg/kg/min, 2.585 mls/hr Vancomycin HCl (Vancomycin 1gm) 1 gm in 250 mls @ 167 mls/hr IVPB Q12H [facility] PRN Reason: Protocol Last Admin: 05/13/17 05:20 Dose: 167 mls/hr Meropenem 1g/NS 100mL IVPB (Meropenem 1g/Ns 100ml Ivpb) 1 gm in 100 mls @ 100 mls/hr IVPB Q8 [facility] PRN Reason: Protocol Stop: 05/19/17 06:31 Last Admin: 05/13/17 05:57 Dose: 100 mls/hr Doxycycline Hyclate 100 mg/ (Sodium Chloride) 100 mls @ 100 mls/hr IVPB Q12 [facility] PRN Reason: Protocol Last Admin: 05/12/17 21:21 Dose: 100 mls/hr Sodium Chloride (Sodium Chloride 0.9%) 1,000 mls @ 100 mls/hr IV .Q10H [facility] Last Admin: 05/12/17 08:30 Dose: 100 mls/hr Metronidazole (Flagyl) 500 mg in 100 mls @ 100 mls/hr IVPB Q8 [facility] PRN Reason: Protocol Last Admin: 05/13/17 05:59 Dose: 100 mls/hr Pantoprazole Sodium (Protonix Inj) 40 mg IVP DAILY [facility] Last Admin: 05/12/17 14:06 Dose: 40 mg - Labs Labs: 05/12/17 05:10 05/12/17 05:10 - Constitutional Appears: Chronically Ill - Head Exam Head Exam: NORMAL INSPECTION - ENT Exam ENT Exam: Mucous Membranes Moist - Neck Exam Neck Exam: absent: Lymphadenopathy, Meningismus - Respiratory Exam Respiratory Exam: Decreased Breath Sounds - Cardiovascular Exam Cardiovascular Exam: +S1, +S2 - GI/Abdominal Exam GI & Abdominal Exam: Soft. absent: Tenderness Assessment and Plan - Assessment and Plan (Free Text) Plan: Assessment Severe sepsis with S/P ventilator-dependent respiratory failure due to new onset left lower lobe healthcare-associated pneumonia with possible gram positive cocci and/or gram negative bacilli and/or atypical organisms; patient also with colitis associated with fecal impaction HTN CVA dementia history of colon surgery S/P orchiectomy and hydrocelectomy May 2017 Plan continue Vancomycin, Merrem and Doxycycline day 2 pending final blood, sputum cx results; reviewed CT of the abdomen and pelvis will monitor clinically
--- NOTE | 2017-05-13 11:21 | CP.PCM.PN ---
<Denia Valdez - Last Filed: 05/13/17 11:17> Subjective - Date & Time of Evaluation Date of Evaluation: 05/13/17 Time of Evaluation: 09:00 - Subjective Subjective: S&E at bedside earlier today. Patient is awake and alert and oriented. He was extubated yesterday, was on BIPAP and now tolerating nasal cannula. Had multiple BM, no bleeding reported. Patient denies SOB, CP, N/V or abdominal pain. Blood and urine culture are negative, Stool for Cdiff pending. Abdominal US: right pleural effusion, small amount fluid Morison's pouch, bilateral renal nonobstructing stone, mild dilation of intrahepatic biliary ducts radicles and CBD compatible to cholecystectomy. Objective - Vital Signs/Intake and Output Vital Signs (last 24 hours): Temp Pulse Resp BP Pulse Ox 98.2 F 106 H 24 116/62 99 05/13/17 08:00 05/13/17 10:00 05/13/17 04:00 05/13/17 00:00 05/13/17 04:00 Intake and Output: 05/13/17 05/13/17 06:59 18:59 Intake Total 1200 Output Total 1175 Balance 25 - Medications Medications: Current Medications Albuterol/Ipratropium (Duoneb 3 Mg/0.5 Mg (3 Ml) Ud) 3 ml IH [id number] [facility] Last Admin: 05/13/17 07:25 Dose: 3 ml Budesonide (Pulmicort Respules) 0.5 mg IH BIDRESP [facility] Last Admin: 05/13/17 07:25 Dose: 0.5 mg Donepezil HCl (Aricept) 10 mg PO HS [facility] Heparin Sodium (Porcine) (Heparin) 5,000 units SC Q8 [facility] PRN Reason: Protocol Last Admin: 05/13/17 05:56 Dose: 5,000 units Propofol (Diprivan) 1,000 mg in 100 mls @ 1.293 mls/hr IV .Q24H PRN; Protocol; 5 MCG/KG/MIN PRN Reason: TITRATE PER MD ORDER Last Titration: 05/12/17 08:05 Dose: 10 mcg/kg/min, 2.585 mls/hr Vancomycin HCl (Vancomycin 1gm) 1 gm in 250 mls @ 167 mls/hr IVPB Q12H [facility] PRN Reason: Protocol Last Admin: 05/13/17 05:20 Dose: 167 mls/hr Meropenem 1g/NS 100mL IVPB (Meropenem 1g/Ns 100ml Ivpb) 1 gm in 100 mls @ 100 mls/hr IVPB Q8 [facility] PRN Reason: Protocol Stop: 05/19/17 06:31 Last Admin: 05/13/17 05:57 Dose: 100 mls/hr Doxycycline Hyclate 100 mg/ (Sodium Chloride) 100 mls @ 100 mls/hr IVPB Q12 [facility] PRN Reason: Protocol Last Admin: 05/13/17 09:57 Dose: 100 mls/hr Sodium Chloride (Sodium Chloride 0.9%) 1,000 mls @ 100 mls/hr IV .Q10H [facility] Last Admin: 05/12/17 08:30 Dose: 100 mls/hr Metronidazole (Flagyl) 500 mg in 100 mls @ 100 mls/hr IVPB Q8 [facility] PRN Reason: Protocol Last Admin: 05/13/17 05:59 Dose: 100 mls/hr Pantoprazole Sodium (Protonix Inj) 40 mg IVP DAILY [facility] Last Admin: 05/13/17 09:56 Dose: 40 mg - Labs Labs: 05/13/17 05:20 05/13/17 05:20 - Constitutional Appears: No Acute Distress - Head Exam Head Exam: NORMOCEPHALIC - Eye Exam Eye Exam: Normal appearance. absent: Scleral icterus - ENT Exam ENT Exam: Mucous Membranes Moist - Neck Exam Neck Exam: Normal Inspection - Respiratory Exam Respiratory Exam: NORMAL BREATHING PATTERN. absent: Respiratory Distress - Cardiovascular Exam Cardiovascular Exam: +S1, +S2 - GI/Abdominal Exam GI & Abdominal Exam: Soft, Normal Bowel Sounds. absent: Guarding, Tenderness, Organomegaly, Rebound - Extremities Exam Extremities Exam: absent: Calf Tenderness, Pedal Edema - Neurological Exam Neurological Exam: Alert, Awake, Oriented x3 - Skin Skin Exam: Dry, Warm Assessment and Plan - Assessment and Plan (Free Text) Assessment: ASSESSMENT: Sepsis s/p Respiratory Failure, extubated Pneumonia Stercoral Colitis/fecal impaction, diisimpacted and now muliple BM Dilated biliary ducts, h/o cholecystectomy Dementia CVA PLAN: FU stool cdiff, was sent on IV antibiotics: doxcycycline/flagyl/vancomycin, meropenum continue GI prophylaxsis: on Protonix 40 mg daily NPO, IVF for hydration DVT prophylaxsis swallow evaluation abdominal US report reviewed Seen and discussed w/ Dr. John. <Fernando John V - Last Filed: 05/13/17 23:36> Objective - Vital Signs/Intake and Output Vital Signs (last 24 hours): Temp Pulse Resp BP Pulse Ox 98.2 F 106 H 42 H 132/66 96 05/13/17 08:00 05/13/17 16:30 05/13/17 15:16 05/13/17 16:00 05/13/17 16:30 Intake and Output: 05/13/17 05/14/17 18:59 06:59 Intake Total 180 Output Total 1200 Balance -1020 - Medications Medications: Current Medications Albuterol/Ipratropium (Duoneb 3 Mg/0.5 Mg (3 Ml) Ud) 3 ml IH [id number] [facility] Last Admin: 05/13/17 20:24 Dose: 3 ml Budesonide (Pulmicort Respules) 0.5 mg IH BIDRESP [facility] Last Admin: 05/13/17 20:24 Dose: 0.5 mg Donepezil HCl (Aricept) 10 mg PO HS [facility] Last Admin: 05/13/17 21:16 Dose: 10 mg Heparin Sodium (Porcine) (Heparin) 5,000 units SC Q8 [facility] PRN Reason: Protocol Last Admin: 05/13/17 21:16 Dose: 5,000 units Vancomycin HCl (Vancomycin 1gm) 1 gm in 250 mls @ 167 mls/hr IVPB Q12H [facility] PRN Reason: Protocol Last Admin: 05/13/17 12:12 Dose: 167 mls/hr Meropenem 1g/NS 100mL IVPB (Meropenem 1g/Ns 100ml Ivpb) 1 gm in 100 mls @ 100 mls/hr IVPB Q8 [facility] PRN Reason: Protocol Stop: 05/19/17 06:31 Last Admin: 05/13/17 15:13 Dose: 100 mls/hr Doxycycline Hyclate 100 mg/ (Sodium Chloride) 100 mls @ 100 mls/hr IVPB Q12 [facility] PRN Reason: Protocol Last Admin: 05/13/17 22:49 Dose: 100 mls/hr Sodium Chloride (Sodium Chloride 0.9%) 1,000 mls @ 100 mls/hr IV .Q10H [facility] Last Admin: 05/12/17 08:30 Dose: 100 mls/hr Metronidazole (Flagyl) 500 mg in 100 mls @ 100 mls/hr IVPB Q8 [facility] PRN Reason: Protocol Last Admin: 05/13/17 21:16 Dose: 100 mls/hr Pantoprazole Sodium (Protonix Inj) 40 mg IVP DAILY [facility] Last Admin: 05/13/17 09:56 Dose: 40 mg Primidone (Mysoline) 250 mg PO HS [facility] Last Admin: 05/13/17 21:17 Dose: 250 mg - Labs Labs: 05/13/17 05:20 05/13/17 05:20 Attending/Attestation - Attestation Notes (Text): this
--- NOTE | 2017-05-13 12:53 | CP.PCM.PN ---
<Bassem Aden - Last Filed: 05/13/17 16:08> Subjective - Date & Time of Evaluation Date of Evaluation: 05/13/17 Time of Evaluation: 16:10 - Subjective Subjective: Patient is seen and examined by bedside. Patient is blanketed, sitting in recliner, smiling, eating lunch (his daughter is feeding him). No events overnight. Objective - Vital Signs/Intake and Output Vital Signs (last 24 hours): Temp Pulse Resp BP Pulse Ox 98.2 F 106 H 20 116/62 97 05/13/17 08:00 05/13/17 10:00 05/13/17 07:40 05/13/17 00:00 05/13/17 07:40 Intake and Output: 05/13/17 05/13/17 06:59 18:59 Intake Total 1200 Output Total 1175 Balance 25 - Medications Medications: Current Medications Albuterol/Ipratropium (Duoneb 3 Mg/0.5 Mg (3 Ml) Ud) 3 ml IH [id number] [facility] Last Admin: 05/13/17 07:25 Dose: 3 ml Budesonide (Pulmicort Respules) 0.5 mg IH BIDRESP [facility] Last Admin: 05/13/17 07:25 Dose: 0.5 mg Donepezil HCl (Aricept) 10 mg PO HS [facility] Heparin Sodium (Porcine) (Heparin) 5,000 units SC Q8 [facility] PRN Reason: Protocol Last Admin: 05/13/17 05:56 Dose: 5,000 units Propofol (Diprivan) 1,000 mg in 100 mls @ 1.293 mls/hr IV .Q24H PRN; Protocol; 5 MCG/KG/MIN PRN Reason: TITRATE PER MD ORDER Last Titration: 05/12/17 08:05 Dose: 10 mcg/kg/min, 2.585 mls/hr Vancomycin HCl (Vancomycin 1gm) 1 gm in 250 mls @ 167 mls/hr IVPB Q12H [facility] PRN Reason: Protocol Last Admin: 05/13/17 05:20 Dose: 167 mls/hr Meropenem 1g/NS 100mL IVPB (Meropenem 1g/Ns 100ml Ivpb) 1 gm in 100 mls @ 100 mls/hr IVPB Q8 [facility] PRN Reason: Protocol Stop: 05/19/17 06:31 Last Admin: 05/13/17 05:57 Dose: 100 mls/hr Doxycycline Hyclate 100 mg/ (Sodium Chloride) 100 mls @ 100 mls/hr IVPB Q12 [facility] PRN Reason: Protocol Last Admin: 05/13/17 09:57 Dose: 100 mls/hr Sodium Chloride (Sodium Chloride 0.9%) 1,000 mls @ 100 mls/hr IV .Q10H [facility] Last Admin: 05/12/17 08:30 Dose: 100 mls/hr Metronidazole (Flagyl) 500 mg in 100 mls @ 100 mls/hr IVPB Q8 [facility] PRN Reason: Protocol Last Admin: 05/13/17 05:59 Dose: 100 mls/hr Pantoprazole Sodium (Protonix Inj) 40 mg IVP DAILY [facility] Last Admin: 05/13/17 09:56 Dose: 40 mg - Labs Labs: 05/13/17 05:20 05/13/17 05:20 - Constitutional Appears: Non-toxic, Cachectic - Head Exam Head Exam: ATRAUMATIC, NORMOCEPHALIC - Eye Exam Pupil Exam: PERRL - ENT Exam ENT Exam: Mucous Membranes Moist, Normal Exam - Neck Exam Neck Exam: Normal Inspection. absent: Lymphadenopathy, Thyromegaly - Respiratory Exam Respiratory Exam: Accessory Muscle Use, Rales (left side more than right) Additional comments: RR 20 - Cardiovascular Exam Cardiovascular Exam: Tachycardia - GI/Abdominal Exam GI & Abdominal Exam: Soft, Normal Bowel Sounds. absent: Rebound - Rectal Exam Rectal Exam: Deferred - Exam Exam: Scrotal Swelling (post-surgical) - Neurological Exam Neurological Exam: Alert Additional comments: bilateral UE tremor noted, alert - Psychiatric Exam Psychiatric exam: Normal Affect, Normal Mood Additional comments: demented - Skin Additional comments: patient has decubitus ulcers, prior to admission Assessment and Plan - Assessment and Plan (Free Text) Assessment: 89 yo male admitted with a history of dementia, CVA, who is s/p orchiectomy POD #5 who was at a [facility] where he developed 2 days of non-bilious, nonbloody vomiting and shortness of breath. In the ED he was found to be in respiratory distress, tachypneic. Labs showed a leukocytosis, elevated lactate. CT of the abdomen and pelvis showed findings in keeping with colitis related to fecal impaction; left hemiscrotum interpreted by the radiologist as post-surgical changes. He was transferred to the ICU for sepsis of unknown origin and intubated for acute hypercapnic, hypoxemic respiratory failure likely secondary to colitis given blood, urine cultures were negative; however, sputum cultures were not ordered. Plan: Neuro: Patient has bilateral UE tremors, stable. Pulmonology: Patient extubated started on BIPAP and downgraded to 5L [place] and maintaining an O2 saturation of 97. Urine for S. pneumoniea, Legionella were negative; Mycoplasma IgM negative. Sputum cultures were not ordered. CVS: Tachycardia, maintaining normal blood pressure, troponin I negative. GI: Patient was fecally disimpacted. Colitis, is the working diagnosis. Dr. John(GI) is following him. Renal: BUN has normalized, last measured pH was 7.33, O2 saturation 97 on 5L [place]. Urology: Dr. Ben Gil, I believe, came to examine the surgical site. Urine output was 29 mL in the last 24. ID: Vancomycin, Meropenem, Metronidazole, Doxycycline for HCAP, colitis, and possible SSI. Heme: Leukocytosis secondary to colitis related to fecal impaction (patient was in [facility]acute [facility] facility, recovering from Orchiectomy. DVT: SC Heparin 5000 q8h <Bryan Turk - Last Filed: 05/13/17 19:05> Objective - Vital Signs/Intake and Output Vital Signs (last 24 hours): Temp Pulse Resp BP Pulse Ox 98.2 F 106 H 42 H 132/66 96 05/13/17 08:00 05/13/17 16:30 05/13/17 15:16 05/13/17 16:00 05/13/17 16:30 - Medications Medications: Current Medications Albuterol/Ipratropium (Duoneb 3 Mg/0.5 Mg (3 Ml) Ud) 3 ml IH [id number] [facility] Last Admin: 05/13/17 14:02 Dose: 3 ml Budesonide (Pulmicort Respules) 0.5 mg IH BIDRESP [facility] Last Admin: 05/13/17 07:25 Dose: 0.5 mg Donepezil HCl (Aricept) 10 mg PO HS [facility] Heparin Sodium (Porcine) (Heparin) 5,000 units SC Q8 [facility] PRN Reason: Protocol Last Admin: 05/13/17 15:10 Dose: 5,000 units Vancomycin HCl (Vancomycin 1gm) 1 gm in 250 mls @ 167 mls/hr IVPB Q12H [facility] PRN Reason: Protocol Last Admin: 05/13/17 12:12 Dose: 167 mls/hr Meropenem 1g/NS 100mL IVPB (Meropenem 1g/Ns 100ml Ivpb) 1 gm in 100 mls @ 100 mls/hr IVPB Q8 [facility] PRN Reason: Protocol Stop: 05/19/17 06:31 Last Admin: 05/13/17 15:13 Dose: 100 mls/hr Doxycycline Hyclate 100 mg/ (Sodium Chloride) 100 mls @ 100 mls/hr IVPB Q12 [facility] PRN Reason: Protocol Last Admin: 05/13/17 09:57 Dose: 100 mls/hr Sodium Chloride (Sodium Chloride 0.9%) 1,000 mls @ 100 mls/hr IV .Q10H [facility] Last Admin: 05/12/17 08:30 Dose: 100 mls/hr Metronidazole (Flagyl) 500 mg in 100 mls @ 100 mls/hr IVPB Q8 [facility] PRN Reason: Protocol Last Admin: 05/13/17 15:11 Dose: 100 mls/hr Pantoprazole Sodium (Protonix Inj) 40 mg IVP DAILY [facility] Last Admin: 05/13/17 09:56 Dose: 40 mg Primidone (Mysoline) 250 mg PO HS [facility] - Labs Labs: 05/13/17 05:20 05/13/17 05:20 Attending/Attestation - Attestation I have personally seen and examined this patient.: Yes I have fully participated in the care of the patient.: Yes I have reviewed all pertinent clinical information, including history, physical exam and plan: Yes Notes (Text): 05/13/17 19:02 89 yo with severe sepsis due to colitis/fecal impaction complicated by respiratory failure requiring intubation. S/p manual disimpaction, and subsequent improvement in abdominal exam and respiratory status. patient was successfully extubated yesterday and had uneventful night. OOB to chair, cont abx, ok to trasnfer to medsurg ccm time 40 min
[2017-05-14] MEDS: Meropenem 1g/NS 100mL IVPB 1 GM/100 ML PIGGYBACK IVPB SCH ×3 (00:27→21:24)
[2017-05-14] MEDS: Albuterol-Ipratrop 3 mg / 0.5 (3 ml) UD IH SCH ×4 (01:03→20:05)
[2017-05-14] MEDS: metroNIDAZOLE IV 500 mg/100 ml 500 MG/100 ML BAG IVPB SCH (05:17)
[2017-05-14 07:03] LABS: BASO # 0.02 K/mm3 (0.0-2.0); BASO % 0.2 % (0.0-3.0); EOS # 0.1 (0.0-0.7); EOS % 0.8 % (1.5-5.0); GRAN # 10.19 (1.4-6.5); GRAN % 90.2 % (50.0-68.0); HEMOGLOBIN 8.2 gm/dL (14.0-18.0); LYMPH # 0.7 (1.2-3.4); LYMPH % 5.9 % (22.0-35.0); MEAN CELL VOLUME 94.4 fL (80.0-105.0); MEAN CORPUSCULAR HEMOGLOBIN 30.4 pg (25.0-35.0); MEAN CORPUSCULAR HGB CONC 32.2 g/dl (31.0-37.0); MEAN PLATELET VOLUME 9.6 fl (7.0-11.0); MONO # 0.3 (0.1-0.6); MONO % 2.9 % (1.0-6.0); PLATELET COUNT 291 10^3/uL (120.0-450.0); RED CELL DISTRIBUTION WIDTH 13.8 % (11.5-14.5); WHITE BLOOD COUNT 11.3 10^3/ul (4.5-11.0)
[2017-05-14 07:05] LABS: ALBUMIN 2.3 g/dL (3.0-4.8); ALT/SGPT 65 U/L (7-56); AST/SGOT 62 U/L (15-59); BLOOD UREA NITROGEN 18 mg/dL (7-21); GFR AFRICAN-AMERICAN > 60; GFR NON-AFRICAN AMERICAN > 60
[2017-05-14] MEDS ORDERED: Potassium Chloride 20 mEq ER Tab PO ONE (07:15)
[2017-05-14] MEDS: Vancomycin 1gm in NS 250ml 1 GM/250 ML BAG IVPB SCH ×2 (07:17→17:34)
--- NOTE | 2017-05-14 07:21 | CP.PCM.PN ---
Subjective - Date & Time of Evaluation Date of Evaluation: 05/14/17 Time of Evaluation: 06:00 - Subjective Subjective: seen in bed jose the icu extubated talking some weak +appetite on iv abs no pain Objective - Vital Signs/Intake and Output Vital Signs (last 24 hours): Temp Pulse Resp BP Pulse Ox 98.2 F 106 H 42 H 132/66 96 05/13/17 08:00 05/13/17 16:30 05/13/17 15:16 05/13/17 16:00 05/13/17 16:30 Intake and Output: 05/14/17 05/14/17 06:59 18:59 Intake Total 180 Output Total 2200 Balance -2019 - Medications Medications: Current Medications Albuterol/Ipratropium (Duoneb 3 Mg/0.5 Mg (3 Ml) Ud) 3 ml IH [id number] [facility] Last Admin: 05/14/17 01:03 Dose: Not Given Budesonide (Pulmicort Respules) 0.5 mg IH BIDRESP [facility] Last Admin: 05/13/17 20:24 Dose: 0.5 mg Donepezil HCl (Aricept) 10 mg PO HS [facility] Last Admin: 05/13/17 21:16 Dose: 10 mg Heparin Sodium (Porcine) (Heparin) 5,000 units SC Q8 [facility] PRN Reason: Protocol Last Admin: 05/14/17 05:17 Dose: 5,000 units Meropenem 1g/NS 100mL IVPB (Meropenem 1g/Ns 100ml Ivpb) 1 gm in 100 mls @ 100 mls/hr IVPB Q8 [facility] PRN Reason: Protocol Stop: 05/19/17 06:31 Last Admin: 05/14/17 00:27 Dose: 100 mls/hr Doxycycline Hyclate 100 mg/ (Sodium Chloride) 100 mls @ 100 mls/hr IVPB Q12 [facility] PRN Reason: Protocol Last Admin: 05/13/17 22:49 Dose: 100 mls/hr Sodium Chloride (Sodium Chloride 0.9%) 1,000 mls @ 100 mls/hr IV .Q10H [facility] Last Admin: 05/12/17 08:30 Dose: 100 mls/hr Metronidazole (Flagyl) 500 mg in 100 mls @ 100 mls/hr IVPB Q8 [facility] PRN Reason: Protocol Last Admin: 05/14/17 05:17 Dose: 100 mls/hr Vancomycin HCl (Vancomycin 1gm) 1 gm in 250 mls @ 167 mls/hr IVPB 0600,1800 [facility] PRN Reason: Protocol Stop: 05/17/17 12:01 Pantoprazole Sodium (Protonix Inj) 40 mg IVP DAILY [facility] Last Admin: 05/13/17 09:56 Dose: 40 mg Primidone (Mysoline) 250 mg PO HS [facility] Last Admin: 05/13/17 21:17 Dose: 250 mg - Labs Labs: 05/13/17 05:20 05/14/17 06:00 - Constitutional Appears: No Acute Distress - Head Exam Head Exam: ATRAUMATIC, NORMAL INSPECTION, NORMOCEPHALIC - ENT Exam ENT Exam: Normal Exam - Neck Exam Neck Exam: Normal Inspection - Respiratory Exam Respiratory Exam: Decreased Breath Sounds, NORMAL BREATHING PATTERN - Cardiovascular Exam Cardiovascular Exam: REGULAR RHYTHM - GI/Abdominal Exam GI & Abdominal Exam: Soft, Normal Bowel Sounds - Extremities Exam Extremities Exam: Normal Inspection - Back Exam Back Exam: NORMAL INSPECTION - Neurological Exam Neurological Exam: Alert, Awake, CN II-XII Intact - Psychiatric Exam Psychiatric exam: Normal Affect - Skin Skin Exam: Warm Assessment and Plan - Assessment and Plan (Free Text) Assessment: sepsis s/p a resp failure now off the ventilator colitis weak Plan: cont w/ iv abs diet pt oob to chair await rec for kristy or tcu ?? as per id slowly improving checking labs meds tests
[2017-05-14] MEDS: Budesonide 0.5 mg/2 ml Inhal Susp UD IH SCH ×2 (07:47→20:08)
[2017-05-14] MEDS ORDERED: Barium Sulfate Susp 2.1% w/v, 2.0% w/w 450 mL Bottle PO ONE (09:28)
[2017-05-14] MEDS: guaiFENesin 600 mg ER Tab PO SCH ×2 (10:41→17:49)
--- NOTE | 2017-05-14 10:58 | CP.PCM.PN ---
<Denia Valdez - Last Filed: 05/14/17 10:57> Subjective - Date & Time of Evaluation Date of Evaluation: 05/14/17 Time of Evaluation: 09:20 - Subjective Subjective: S&E at bedside, daughter assist patient with breakfast. Patient does not report BM, he complaints of diffuse lower abdominal pain as well as back pain. No acute distress or overnight events. Objective - Vital Signs/Intake and Output Vital Signs (last 24 hours): Temp Pulse Resp BP Pulse Ox 97.5 F L 91 H 22 104/56 L 94 L 05/14/17 08:29 05/14/17 08:29 05/14/17 08:29 05/14/17 08:29 05/14/17 08:29 Intake and Output: 05/14/17 05/14/17 06:59 18:59 Intake Total 180 Output Total 2200 Balance -2019 - Medications Medications: Current Medications Albuterol/Ipratropium (Duoneb 3 Mg/0.5 Mg (3 Ml) Ud) 3 ml IH [id number] [facility] Last Admin: 05/14/17 07:47 Dose: 3 ml Budesonide (Pulmicort Respules) 0.5 mg IH BIDRESP [facility] Last Admin: 05/14/17 07:47 Dose: 0.5 mg Donepezil HCl (Aricept) 10 mg PO HS [facility] Last Admin: 05/13/17 21:16 Dose: 10 mg Guaifenesin (Mucinex La) 600 mg PO BID [facility] Last Admin: 05/14/17 10:41 Dose: 600 mg Heparin Sodium (Porcine) (Heparin) 5,000 units SC Q8 [facility] PRN Reason: Protocol Last Admin: 05/14/17 05:17 Dose: 5,000 units Meropenem 1g/NS 100mL IVPB (Meropenem 1g/Ns 100ml Ivpb) 1 gm in 100 mls @ 100 mls/hr IVPB Q8 [facility] PRN Reason: Protocol Stop: 05/19/17 06:31 Last Admin: 05/14/17 00:27 Dose: 100 mls/hr Doxycycline Hyclate 100 mg/ (Sodium Chloride) 100 mls @ 100 mls/hr IVPB Q12 [facility] PRN Reason: Protocol Last Admin: 05/14/17 10:41 Dose: 100 mls/hr Sodium Chloride (Sodium Chloride 0.9%) 1,000 mls @ 100 mls/hr IV .Q10H [facility] Last Admin: 05/12/17 08:30 Dose: 100 mls/hr Metronidazole (Flagyl) 500 mg in 100 mls @ 100 mls/hr IVPB Q8 [facility] PRN Reason: Protocol Last Admin: 05/14/17 05:17 Dose: 100 mls/hr Vancomycin HCl (Vancomycin 1gm) 1 gm in 250 mls @ 167 mls/hr IVPB 0600,1800 [facility] PRN Reason: Protocol Stop: 05/17/17 12:01 Last Admin: 05/14/17 07:17 Dose: 167 mls/hr Pantoprazole Sodium (Protonix Inj) 40 mg IVP DAILY [facility] Last Admin: 05/14/17 10:38 Dose: 40 mg Primidone (Mysoline) 250 mg PO HS [facility] Last Admin: 05/13/17 21:17 Dose: 250 mg - Labs Labs: 05/14/17 06:00 05/14/17 06:00 - Constitutional Appears: No Acute Distress - Head Exam Head Exam: NORMOCEPHALIC - Eye Exam Eye Exam: Normal appearance. absent: Scleral icterus - ENT Exam ENT Exam: Mucous Membranes Moist - Neck Exam Neck Exam: Normal Inspection - Respiratory Exam Respiratory Exam: Decreased Breath Sounds, NORMAL BREATHING PATTERN. absent: Wheezes, Respiratory Distress - Cardiovascular Exam Cardiovascular Exam: +S1, +S2 - GI/Abdominal Exam GI & Abdominal Exam: Soft, Tenderness (diffuse lower abdomen), Normal Bowel Sounds. absent: Guarding, Rebound - Extremities Exam Extremities Exam: Pedal Edema (mild, with dreesing on bilateral heels). absent : Calf Tenderness - Neurological Exam Neurological Exam: Alert, Awake, Oriented x3 - Skin Skin Exam: Dry, Warm Assessment and Plan - Assessment and Plan (Free Text) Assessment: ASSESSMENT: Sepsis Abdominal Pain s/p Respiratory Failure, extubated Pneumonia Stercoral Colitis/fecal impaction, disimpacted and now muliple BM, cdiff negative Dilated biliary ducts, h/o cholecystectomy, abd us no acute findings Dementia CVA PLAN: regular soft diet on IV antibiotics: doxcycycline/flagyl/vancomycin, meropenum continue GI prophylaxsis: on Protonix 40 mg daily DVT prophylaxsis repeat ct scan WITH oral contrast fu colitis, patient complain abdominal pain discuss with daughter at the bedside. Seen and discussed w/ Dr. John. <Fernando John V - Last Filed: 05/14/17 21:53> Objective - Vital Signs/Intake and Output Vital Signs (last 24 hours): Temp Pulse Resp BP Pulse Ox 98.7 F 91 H 19 124/62 97 05/14/17 16:00 05/14/17 16:00 05/14/17 16:00 05/14/17 16:00 05/14/17 16:00 Intake and Output: 05/14/17 05/15/17 18:59 06:59 Intake Total 660 Output Total 1200 Balance -540 - Medications Medications: Current Medications Albuterol/Ipratropium (Duoneb 3 Mg/0.5 Mg (3 Ml) Ud) 3 ml IH [id number] [facility] Last Admin: 05/14/17 20:05 Dose: 3 ml Budesonide (Pulmicort Respules) 0.5 mg IH BIDRESP [facility] Last Admin: 05/14/17 20:08 Dose: 0.5 mg Docusate Sodium (Colace) 100 mg PO BID [facility] Donepezil HCl (Aricept) 10 mg PO HS [facility] Last Admin: 05/14/17 21:23 Dose: 10 mg Guaifenesin (Mucinex La) 600 mg PO BID [facility] Last Admin: 05/14/17 17:49 Dose: 600 mg Heparin Sodium (Porcine) (Heparin) 5,000 units SC Q8 [facility] PRN Reason: Protocol Last Admin: 05/14/17 21:24 Dose: 5,000 units Meropenem 1g/NS 100mL IVPB (Meropenem 1g/Ns 100ml Ivpb) 1 gm in 100 mls @ 100 mls/hr IVPB Q8 [facility] PRN Reason: Protocol Stop: 05/19/17 06:31 Last Admin: 05/14/17 21:24 Dose: 100 mls/hr Doxycycline Hyclate 100 mg/ (Sodium Chloride) 100 mls @ 100 mls/hr IVPB Q12 [facility] PRN Reason: Protocol Last Admin: 05/14/17 21:25 Dose: 100 mls/hr Sodium Chloride (Sodium Chloride 0.9%) 1,000 mls @ 100 mls/hr IV .Q10H [facility] Last Admin: 05/14/17 15:48 Dose: 100 mls/hr Vancomycin HCl (Vancomycin 1gm) 1 gm in 250 mls @ 167 mls/hr IVPB 0600,1800 [facility] PRN Reason: Protocol Stop: 05/17/17 12:01 Last Admin: 05/14/17 17:34 Dose: 167 mls/hr Pantoprazole Sodium (Protonix Inj) 40 mg IVP DAILY [facility] Last Admin: 05/14/17 10:38 Dose: 40 mg Polyethylene Glycol (Miralax) 17 gm PO BID [facility] Last Admin: 05/14/17 18:57 Dose: 17 gm Primidone (Mysoline) 250 mg PO HS [facility] Last Admin: 05/14/17 21:23 Dose: 250 mg - Labs Labs: 05/14/17 06:00 05/14/17 06:00 Attending/Attestation - Attestation I have personally seen and examined this patient.: Yes I have fully participated in the care of the patient.: Yes I have reviewed all pertinent clinical information, including history, physical exam and plan: Yes Notes (Text): 05/14/17 21:44 this patient was seen and evaluated here earlier. Discussed with the patient's daughter was at bedside. The CT scan was also reviewed. Patient stated he now has significant stool in the rectum Would start the patient again on MiraLAX , given Dulcolax suppositories Stool for C. difficile negative for the patient patient and rectum wall appears thickened this could be secondary to prolonged fecal impaction the another differential diagnoses should include C. difficile.stool. Thank you for allowing us to participate in the care of the patient 05/14/17 21:52
--- NOTE | 2017-05-14 12:14 | CP.PCM.PN ---
Subjective - Date & Time of Evaluation Date of Evaluation: 05/14/17 Time of Evaluation: 11:40 - Subjective Subjective: Patient is comfortable in bed, not in distress, afebrile, breathing better, still with abdominal pain but better. Objective - Vital Signs/Intake and Output Vital Signs (last 24 hours): Temp Pulse Resp BP Pulse Ox 98.2 F 106 H 42 H 132/66 96 05/13/17 08:00 05/13/17 16:30 05/13/17 15:16 05/13/17 16:00 05/13/17 16:30 Intake and Output: 05/14/17 05/14/17 06:59 18:59 Intake Total 180 Output Total 2200 Balance -2019 - Medications Medications: Current Medications Albuterol/Ipratropium (Duoneb 3 Mg/0.5 Mg (3 Ml) Ud) 3 ml IH [id number] [facility] Last Admin: 05/14/17 07:47 Dose: 3 ml Budesonide (Pulmicort Respules) 0.5 mg IH BIDRESP [facility] Last Admin: 05/14/17 07:47 Dose: 0.5 mg Donepezil HCl (Aricept) 10 mg PO HS [facility] Last Admin: 05/13/17 21:16 Dose: 10 mg Heparin Sodium (Porcine) (Heparin) 5,000 units SC Q8 [facility] PRN Reason: Protocol Last Admin: 05/14/17 05:17 Dose: 5,000 units Meropenem 1g/NS 100mL IVPB (Meropenem 1g/Ns 100ml Ivpb) 1 gm in 100 mls @ 100 mls/hr IVPB Q8 [facility] PRN Reason: Protocol Stop: 05/19/17 06:31 Last Admin: 05/14/17 00:27 Dose: 100 mls/hr Doxycycline Hyclate 100 mg/ (Sodium Chloride) 100 mls @ 100 mls/hr IVPB Q12 [facility] PRN Reason: Protocol Last Admin: 05/13/17 22:49 Dose: 100 mls/hr Sodium Chloride (Sodium Chloride 0.9%) 1,000 mls @ 100 mls/hr IV .Q10H [facility] Last Admin: 05/12/17 08:30 Dose: 100 mls/hr Metronidazole (Flagyl) 500 mg in 100 mls @ 100 mls/hr IVPB Q8 [facility] PRN Reason: Protocol Last Admin: 05/14/17 05:17 Dose: 100 mls/hr Vancomycin HCl (Vancomycin 1gm) 1 gm in 250 mls @ 167 mls/hr IVPB 0600,1800 [facility] PRN Reason: Protocol Stop: 05/17/17 12:01 Last Admin: 05/14/17 07:17 Dose: 167 mls/hr Pantoprazole Sodium (Protonix Inj) 40 mg IVP DAILY [facility] Last Admin: 05/13/17 09:56 Dose: 40 mg Primidone (Mysoline) 250 mg PO HS [facility] Last Admin: 05/13/17 21:17 Dose: 250 mg - Labs Labs: 05/14/17 06:00 05/14/17 06:00 - Constitutional Appears: Non-toxic, No Acute Distress, Chronically Ill - Head Exam Head Exam: NORMAL INSPECTION - Neck Exam Neck Exam: absent: Meningismus - Respiratory Exam Respiratory Exam: Decreased Breath Sounds - Cardiovascular Exam Cardiovascular Exam: +S1, +S2 - GI/Abdominal Exam GI & Abdominal Exam: Soft. absent: Tenderness Assessment and Plan - Assessment and Plan (Free Text) Plan: Assessment Severe sepsis with S/P ventilator-dependent respiratory failure due to new onset left lower lobe healthcare-associated pneumonia with possible gram positive cocci and/or gram negative bacilli and/or atypical organisms; patient also with colitis associated with fecal impaction HTN CVA dementia history of colon surgery S/P orchiectomy and hydrocelectomy May 2017 Plan continue Vancomycin, Merrem and Doxycycline day 3 - cultures have been negative ; reviewed CT of the abdomen and pelvis (which showed the left lower lobe pneumonia and the colitis) will continue to monitor clinically
--- NOTE | 2017-05-14 15:07 | CT ---
PROCEDURE: CT Abdomen and Pelvis with contrast HISTORY: abdominal pain/colitis/repeat w/oral contrast COMPARISON: CT abdomen and pelvis 05/12/2017 TECHNIQUE: Contrast dose: 2 bottles of Martin cat Radiation dose: Total exam DLP = 199 mGy-cm. This CT exam was performed using one or more of the following dose reduction techniques: Automated exposure control, adjustment of the mA and/or kV according to patient size, and/or use of iterative reconstruction technique. FINDINGS: LOWER THORAX: Interval increased bilateral pleural effusions. The prior ill-defined opacity is obscured by dense consolidation compressive atelectasis here. There is right lower lobe compressive atelectasis associated with the right pleural effusion as well LIVER: Unremarkable. No gross lesion. There is central intra and extrahepatic bile duct prominence possibly chronic in this post cholecystectomy status patient GALLBLADDER AND BILE DUCTS: As above PANCREAS: Unremarkable. No gross lesion or pancreatic ductal dilatation. SPLEEN: Unremarkable. ADRENALS: Unremarkable. No mass. KIDNEYS AND URETERS: Bilateral renal calculi clusters in each lower pole collecting system similar. No hydronephrosis. No solid mass. VASCULATURE: Bilateral common iliac aneurysms -similar. No aortic aneurysm. BOWEL: Multiple dilated small and large bowel loops. No point of obstruction. Extensive rectal stool impaction. No gross mural thickening. A stercoral colitis is probable . Probable bowel loops extending into each groin/scrotal region APPENDIX: Not visualized PERITONEUM: Free fluid - a stercoral colitis is probable. No free air. LYMPH NODES: No enlarged lymph nodes. BLADDER: Cueva catheter in decompressed bladder REPRODUCTIVE: Small prostate with few prostatic calcifications. Atrophic seminal vesicle BONES: No acute fracture. OTHER FINDINGS: None. IMPRESSION: Interval increased bilateral pleural effusions with interval increase bibasilar compressive atelectasis. The prior left lower lobe ill-defined opacity is obscured by the consolidation. Follow-up recommended with pleural fluid consolidative resolution. Ascites -slightly increased. Probably relating to stercoral colitis and possible fluid volume overload. Correlate clinically . Extensive rectal stool impaction . No mechanical point of obstruction appreciated. Bowel loops extending into the each groin/scrotal sac. Cholecystectomy - mild biliary ductal dilatation probably relating to this Bilateral renal calculi nonobstructing -clustered in each inferior collecting system
[2017-05-14] MEDS: Sodium Chloride 0.9% 1,000 ML IV SCH (15:48)
[2017-05-14] MEDS: POLYETHYLENE GLYCOL 3350 17 GM/Dose PACKET PO SCH (18:57)
[2017-05-15] MEDS: Albuterol-Ipratrop 3 mg / 0.5 (3 ml) UD IH SCH ×4 (01:40→19:39)
[2017-05-15] MEDS: Meropenem 1g/NS 100mL IVPB 1 GM/100 ML PIGGYBACK IVPB SCH ×3 (05:27→21:26)
[2017-05-15] MEDS: Vancomycin 1gm in NS 250ml 1 GM/250 ML BAG IVPB SCH (05:28)
[2017-05-15 06:47] LABS: BASO # 0.02 K/mm3 (0.0-2.0); BASO % 0.3 % (0.0-3.0); EOS # 0.1 (0.0-0.7); EOS % 0.7 % (1.5-5.0); GRAN # 6.09 (1.4-6.5); GRAN % 85.4 % (50.0-68.0); HEMOGLOBIN 8.8 gm/dL (14.0-18.0); LYMPH # 0.6 (1.2-3.4); LYMPH % 8.3 % (22.0-35.0); MEAN CELL VOLUME 94.4 fL (80.0-105.0); MEAN CORPUSCULAR HEMOGLOBIN 30.6 pg (25.0-35.0); MEAN CORPUSCULAR HGB CONC 32.4 g/dl (31.0-37.0); MEAN PLATELET VOLUME 9.3 fl (7.0-11.0); MONO # 0.4 (0.1-0.6); MONO % 5.3 % (1.0-6.0); PLATELET COUNT 294 10^3/uL (120.0-450.0); RBC 2.88 10^6/uL (3.5-6.1); RED CELL DISTRIBUTION WIDTH 13.8 % (11.5-14.5); WHITE BLOOD COUNT 7.1 10^3/ul (4.5-11.0)
[2017-05-15 07:12] LABS: ALBUMIN 2.2 g/dL (3.0-4.8); ALT/SGPT 65 U/L (7-56); AST/SGOT 61 U/L (15-59); BLOOD UREA NITROGEN 13 mg/dL (7-21); CALCIUM 7.8 mg/dL (8.4-10.5); GFR AFRICAN-AMERICAN > 60; GFR NON-AFRICAN AMERICAN > 60
[2017-05-15] MEDS: Budesonide 0.5 mg/2 ml Inhal Susp UD IH SCH ×2 (07:51→19:39)
[2017-05-15] MEDS: guaiFENesin 600 mg ER Tab PO SCH ×2 (10:17→17:34)
[2017-05-15] MEDS: Potassium Chloride 20 mEq ER Tab PO SCH (10:17)
[2017-05-15] MEDS: POLYETHYLENE GLYCOL 3350 17 GM/Dose PACKET PO SCH ×2 (10:17→17:34)
--- NOTE | 2017-05-15 11:14 | CP.PCM.PN ---
Subjective - Date & Time of Evaluation Date of Evaluation: 05/15/17 Time of Evaluation: 09:10 - Subjective Subjective: Seen and examined at bedside, daughter at bedside. Had good BM yesterday, abdominal pain better, no back pain. Tolerating breakfast, No reports of SOB or chest pain. No reports of overt GI bleed. Ct scan report reviewed, still with lots of stool, given laxatives. Objective - Vital Signs/Intake and Output Vital Signs (last 24 hours): Temp Pulse Resp BP Pulse Ox 98 F 88 19 125/62 97 05/15/17 08:34 05/15/17 08:34 05/15/17 08:34 05/15/17 08:34 05/15/17 08:34 Intake and Output: 05/15/17 05/15/17 06:59 18:59 Intake Total 1150 0 Output Total 1000 1875 Balance 150 -1875 - Medications Medications: Current Medications Albuterol/Ipratropium (Duoneb 3 Mg/0.5 Mg (3 Ml) Ud) 3 ml IH [id number] [facility] Last Admin: 05/15/17 07:51 Dose: 3 ml Budesonide (Pulmicort Respules) 0.5 mg IH BIDRESP [facility] Last Admin: 05/15/17 07:51 Dose: 0.5 mg Docusate Sodium (Colace) 100 mg PO BID [facility] Last Admin: 05/15/17 10:17 Dose: 100 mg Donepezil HCl (Aricept) 10 mg PO HS [facility] Last Admin: 05/14/17 21:23 Dose: 10 mg Guaifenesin (Mucinex La) 600 mg PO BID [facility] Last Admin: 05/15/17 10:17 Dose: 600 mg Heparin Sodium (Porcine) (Heparin) 5,000 units SC Q8 [facility] PRN Reason: Protocol Last Admin: 05/15/17 05:32 Dose: 5,000 units Meropenem 1g/NS 100mL IVPB (Meropenem 1g/Ns 100ml Ivpb) 1 gm in 100 mls @ 100 mls/hr IVPB Q8 [facility] PRN Reason: Protocol Stop: 05/19/17 06:31 Last Admin: 05/15/17 05:27 Dose: 100 mls/hr Doxycycline Hyclate 100 mg/ (Sodium Chloride) 100 mls @ 100 mls/hr IVPB Q12 [facility] PRN Reason: Protocol Last Admin: 05/15/17 10:18 Dose: 100 mls/hr Sodium Chloride (Sodium Chloride 0.9%) 1,000 mls @ 100 mls/hr IV .Q10H [facility] Last Admin: 05/14/17 15:48 Dose: 100 mls/hr Pantoprazole Sodium (Protonix Inj) 40 mg IVP DAILY [facility] Last Admin: 05/15/17 10:17 Dose: 40 mg Polyethylene Glycol (Miralax) 17 gm PO BID [facility] Last Admin: 05/15/17 10:17 Dose: 17 gm Potassium Chloride (K-Dur 20 Meq Er Tab) 20 meq PO BRK [facility] Last Admin: 05/15/17 10:17 Dose: 20 meq Primidone (Mysoline) 250 mg PO HS [facility] Last Admin: 05/14/17 21:23 Dose: 250 mg - Labs Labs: 05/15/17 06:30 05/15/17 06:30 - Constitutional Appears: No Acute Distress - Head Exam Head Exam: NORMOCEPHALIC - Eye Exam Eye Exam: Normal appearance. absent: Scleral icterus - ENT Exam ENT Exam: Mucous Membranes Moist - Neck Exam Neck Exam: Normal Inspection - Respiratory Exam Respiratory Exam: Decreased Breath Sounds, NORMAL BREATHING PATTERN. absent: Wheezes, Respiratory Distress - Cardiovascular Exam Cardiovascular Exam: +S1, +S2 - GI/Abdominal Exam GI & Abdominal Exam: Soft, Normal Bowel Sounds. absent: Guarding, Tenderness, Rebound - Extremities Exam Extremities Exam: absent: Calf Tenderness, Pedal Edema - Neurological Exam Neurological Exam: Alert, Awake, Oriented x3 - Skin Skin Exam: Dry, Warm Assessment and Plan - Assessment and Plan (Free Text) Assessment: ASSESSMENT: Sepsis Abdominal Pain, improved, maybe secondary to sever constipation Hypokalemia s/p Respiratory Failure, extubated Pneumonia Stercoral Colitis secondary fecal impaction, disimpacted and now muliple BM, differential Cdiff colitis, stool for cdiff negative Dilated biliary ducts, h/o cholecystectomy, abd us no acute findings Dementia CVA PLAN: regular soft diet on IV antibiotics: doxcycycline & meropenum continue GI prophylaxsis: on Protonix 40 mg daily DVT prophylaxsis continue bowel regemine: colace and miralax discuss with daughter at the bedside. monitor electrolytes and replace as needed Seen and discussed w/ Dr. John.
[2017-05-15] MEDS: Sodium Chloride 0.9% 1,000 ML IV SCH (19:53)
[2017-05-16] MEDS: Albuterol-Ipratrop 3 mg / 0.5 (3 ml) UD IH SCH ×4 (01:41→20:37)
[2017-05-16] MEDS: Meropenem 1g/NS 100mL IVPB 1 GM/100 ML PIGGYBACK IVPB SCH ×3 (05:28→22:00)
[2017-05-16] MEDS: Pantoprazole 40 mg EC Tab PO SCH (06:04)
[2017-05-16 08:03] LABS: BASO # 0.01 K/mm3 (0.0-2.0); BASO % 0.2 % (0.0-3.0); EOS # 0.1 (0.0-0.7); EOS % 1.2 % (1.5-5.0); GRAN # 5.16 (1.4-6.5); GRAN % 80.2 % (50.0-68.0); HEMOGLOBIN 8.8 gm/dL (14.0-18.0); LYMPH # 0.7 (1.2-3.4); LYMPH % 10.9 % (22.0-35.0); MEAN CELL VOLUME 94.8 fL (80.0-105.0); MEAN CORPUSCULAR HEMOGLOBIN 30.3 pg (25.0-35.0); MEAN PLATELET VOLUME 9.6 fl (7.0-11.0); MONO # 0.5 (0.1-0.6); MONO % 7.5 % (1.0-6.0); PLATELET COUNT 303 10^3/uL (120.0-450.0); RED CELL DISTRIBUTION WIDTH 13.9 % (11.5-14.5); WHITE BLOOD COUNT 6.4 10^3/ul (4.5-11.0)
[2017-05-16] MEDS: Budesonide 0.5 mg/2 ml Inhal Susp UD IH SCH ×2 (08:05→20:38)
[2017-05-16 08:12] LABS: ALB/GLOB RATIO 0.9 (1.1-1.8); ALBUMIN 2.3 g/dL (3.0-4.8); ALT/SGPT 70 U/L (7-56); AST/SGOT 74 U/L (15-59); BLOOD UREA NITROGEN 16 mg/dL (7-21); GFR AFRICAN-AMERICAN > 60; GFR NON-AFRICAN AMERICAN > 60
--- NOTE | 2017-05-16 09:16 | PN ---
SUBJECTIVE: I saw him resting comfortably in bed. He slept fairly well last night. He is definitely breathing a lot better than when he came in. He is on IV antibiotics and is on oxygen. He is very weak. He is going to need to have subacute rehab as per physical therapy. He is trying to eat but weak. MEDICATIONS: He is currently on Aricept, Colace, doxycycline IV, DuoNeb, heparin, Merrem IV, MiraLax, Mucinex, Mysoline, Protonix, Pulmicort,and IV fluids. PHYSICAL EXAMINATION VITAL SIGNS: Temp 98.7, pulse 91, blood pressure 124/62, respiratory rate 19, and O2 sat 97% on 3 L nasal cannula. HEENT: Head is atraumatic and normocephalic. Throat is dry. NECK: Supple. CARDIOPULMONARY: Heart is regular rate. LUNGS: Decreased breath sounds bilaterally. Poor effort. Mild congestion changes with cough. ABDOMEN: Soft and nontender. Positive bowel sounds. EXTREMITIES: No edema, but he is weak. LABORATORY DATA: He has a 7.1 white count, it is the best it has been; 8.8 hemoglobin, he dropped about 3 g of hemoglobin; 27.2 hematocrit; and 294 platelets. Sodium 139 and potassium 3.5. We are going to give him some potassium. BUN is 13, creatinine is 0.6, GFR is 79, calcium is 7.8, total bilirubin is 0.2, AST is 61, ALT is 65, alkaline phosphatase is 65, total protein is 4.6. Urine is small, negative Legionella. ASSESSMENT AND PLAN: He is being seen by Infectious Disease, Gastrointestinal, grass farmer, and urologist. He recently had a CAT scan of the abdomen and pelvis yesterday. It showed bilateral pleural effusions, interval increase in bibasilar compression atelectasis with opacity, ascites has increased, stercoral colitis, extensive rectal stool impaction, cholecystectomy, mild biliary duct dilatation, and bilateral kidney stones non-obstructing. I am trying to get him to subacute rehab. I do not think he is medically and clinically prepared yet. Hopefully, in the next day or two, we will get him to subacute rehab or physical therapy. We will check his labs tomorrow and continue with aggressive treatment and care. Pollo Jhaveri DO cc: [facility] # [id number]
--- NOTE | 2017-05-16 09:16 | PN ---
DATE: SUBJECTIVE: I have had the opportunity to see Mr. Hoffmann this morning. He has markedly improved since his admission, intubation and extubation. He is sitting up in bed, eating and talking without any respiratory distress. He feels well and he is progressing dramatically. He has no complaints at this time and he does have an occasional cough, but no significant expectoration. He still has some phlegm, on low-dose oxygen via nasal cannula is still being administered. PHYSICAL EXAMINATION: VITAL SIGNS: Stable with a blood pressure of 120/80, heart rate of 86, respiratory rate of 16, and O2 saturation of 98%. NECK: Supple. No JVD. No lymphadenopathy. No bruits. CARDIOVASCULAR: Regular rhythm S1 and S2. Soft systolic ejection murmur at the lower left sternal border. CHEST: Scattered rhonchi throughout both lung muhammad and no wheezes appreciated. ABDOMEN: Soft. Bowel sounds are normoactive without mass, guarding, rebound or organomegaly. EXTREMITIES: Reveal no clubbing, cyanosis or edema. NEUROLOGIC: Normal without focality. LYMPHATIC: No lymphadenopathy is noted. CLINICAL IMPRESSION: 1. Status post respiratory failure. 2. Chronic obstructive pulmonary disease. 3. Mucus plugging. PLAN: Continue chest PT and mucolytic therapy. Continue bronchodilator and antibiotics. He is progressing rapidly and will most likely be able to be discharged in the near future. Please make sure that his status improves and that I would like to be called if there is any deterioration. Would continue the inhaled pulmonary medications. He is not on any intravenous or p.o. corticosteroids that need to be tapered. If he can be discharged shortly from a pulmonary point of view, if there are any problems that need my attention, please feel free to contact me immediately. Vishnu Canela MD
[2017-05-16] MEDS: guaiFENesin 600 mg ER Tab PO SCH ×2 (09:44→17:34)
[2017-05-16] MEDS: POLYETHYLENE GLYCOL 3350 17 GM/Dose PACKET PO SCH ×2 (09:44→17:35)
[2017-05-16] MEDS: Potassium Chloride 20 mEq ER Tab PO SCH (09:44)
[2017-05-16 11:29] LABS: BASO # 0.02 K/mm3 (0.0-2.0); BASO % 0.3 % (0.0-3.0); EOS % 0.4 % (1.5-5.0); GRAN # 6.09 (1.4-6.5); GRAN % 85.1 % (50.0-68.0); HEMOGLOBIN 10.5 gm/dL (14.0-18.0); LYMPH # 0.6 (1.2-3.4); LYMPH % 8.5 % (22.0-35.0); MEAN CELL VOLUME 96.1 fL (80.0-105.0); MEAN CORPUSCULAR HEMOGLOBIN 31.3 pg (25.0-35.0); MEAN CORPUSCULAR HGB CONC 32.5 g/dl (31.0-37.0); MEAN PLATELET VOLUME 9.3 fl (7.0-11.0); MONO # 0.4 (0.1-0.6); MONO % 5.7 % (1.0-6.0); PLATELET COUNT 339 10^3/uL (120.0-450.0); RBC 3.36 10^6/uL (3.5-6.1); RED CELL DISTRIBUTION WIDTH 13.8 % (11.5-14.5); WHITE BLOOD COUNT 7.2 10^3/ul (4.5-11.0)
[2017-05-16 11:41] LABS: INR 0.99 (0.93-1.08); PARTIAL THROMBOPLASTIN TIME 44.8 Seconds (23.7-30.8); PROTHROMBIN TIME 10.7 Seconds (9.9-11.8)
--- NOTE | 2017-05-16 11:41 | CP.PCM.PN ---
<Denia Valdez - Last Filed: 05/16/17 13:05> Subjective - Date & Time of Evaluation Date of Evaluation: 05/16/17 Time of Evaluation: 11:15 - Subjective Subjective: Seen and examined at bedside earlier daughter at bedside, patient c/o rectal discomfort, having soft BM, no abdominal pain. No reports of bleeding. Eating of. No SOB or CP. rectal exam done and saw skin abrasion near rectum, no bleeding, hemorroids. Then receive call that patient had brown BM and blood noted w/ stool. Witnessed brown stool in commode with bright red blood on top of stool, this rectal exam, blood appear to be coming out near rectum, no pain. Patient asymptomatic, no dizziness, sob, cp , n/v or abdominal pain. Objective - Vital Signs/Intake and Output Vital Signs (last 24 hours): Temp Pulse Resp BP Pulse Ox 97.6 F 89 20 108/61 98 05/16/17 09:02 05/16/17 09:02 05/16/17 09:02 05/16/17 09:02 05/16/17 09:02 Intake and Output: 05/16/17 05/16/17 06:59 18:59 Intake Total 1660 Output Total 1300 Balance 360 - Medications Medications: Current Medications Albuterol/Ipratropium (Duoneb 3 Mg/0.5 Mg (3 Ml) Ud) 3 ml IH [id number] [facility] Last Admin: 05/16/17 08:05 Dose: 3 ml Budesonide (Pulmicort Respules) 0.5 mg IH BIDRESP [facility] Last Admin: 05/16/17 08:05 Dose: 0.5 mg Docusate Sodium (Colace) 100 mg PO BID [facility] Last Admin: 05/16/17 09:44 Dose: 100 mg Donepezil HCl (Aricept) 10 mg PO HS [facility] Last Admin: 05/15/17 21:28 Dose: 10 mg Guaifenesin (Mucinex La) 600 mg PO BID [facility] Last Admin: 05/16/17 09:44 Dose: 600 mg Heparin Sodium (Porcine) (Heparin) 5,000 units SC Q8 [facility] PRN Reason: Protocol Last Admin: 05/16/17 05:28 Dose: 5,000 units Hydrocortisone (Anusol-Hc) 25 mg RC BID [facility] Meropenem 1g/NS 100mL IVPB (Meropenem 1g/Ns 100ml Ivpb) 1 gm in 100 mls @ 100 mls/hr IVPB Q8 [facility] PRN Reason: Protocol Stop: 05/19/17 06:31 Last Admin: 05/16/17 05:28 Dose: 100 mls/hr Doxycycline Hyclate 100 mg/ (Sodium Chloride) 100 mls @ 100 mls/hr IVPB Q12 [facility] PRN Reason: Protocol Last Admin: 05/16/17 09:44 Dose: 100 mls/hr Sodium Chloride (Sodium Chloride 0.9%) 1,000 mls @ 100 mls/hr IV .Q10H [facility] Last Admin: 05/15/17 19:53 Dose: 100 mls/hr Pantoprazole Sodium (Protonix Ec Tab) 40 mg PO 0600 [facility] Last Admin: 05/16/17 06:04 Dose: 40 mg Polyethylene Glycol (Miralax) 17 gm PO BID [facility] Last Admin: 05/16/17 09:44 Dose: 17 gm Potassium Chloride (K-Dur 20 Meq Er Tab) 20 meq PO BRK [facility] Last Admin: 05/16/17 09:44 Dose: 20 meq Primidone (Mysoline) 250 mg PO HS [facility] Last Admin: 05/15/17 21:27 Dose: 250 mg Silver Sulfadiazine (Silvadene 1% 20 Gm) 1 ea TOP BID [facility] - Labs Labs: 05/16/17 07:00 05/16/17 07:00 - Constitutional Appears: No Acute Distress, Cachectic - Head Exam Head Exam: NORMOCEPHALIC - Eye Exam Eye Exam: Normal appearance. absent: Scleral icterus - ENT Exam ENT Exam: Mucous Membranes Moist, Normal Exam - Respiratory Exam Respiratory Exam: Decreased Breath Sounds, NORMAL BREATHING PATTERN. absent: Respiratory Distress - Cardiovascular Exam Cardiovascular Exam: +S1, +S2 - GI/Abdominal Exam GI & Abdominal Exam: Soft, Normal Bowel Sounds. absent: Distended, Guarding, Tenderness, Rebound - Rectal Exam Rectal Exam: Hemorrhoids Additional comments: blood noted end of rectum outside, brown stool on glove - Extremities Exam Extremities Exam: absent: Calf Tenderness, Pedal Edema - Neurological Exam Neurological Exam: Alert, Awake, Oriented x3 - Skin Skin Exam: Dry, Warm Assessment and Plan - Assessment and Plan (Free Text) Assessment: ASSESSMENT: Sepsis Blood per rectum, may be secondary to hemorrhoids, irritation, fissure Abdominal Pain, improved, maybe secondary to severe constipation Anemia s/p Respiratory Failure, extubated Pneumonia Stercoral Colitis secondary fecal impaction, disimpacted and now muliple BM, differential Cdiff colitis, stool for cdiff negative Dilated biliary ducts, h/o cholecystectomy, abd us no acute findings Elevated LFT, maybe medication induced, on multiple antibiotics Dementia CVA PLAN: stat CBC/PT/INR hold Heparin regular soft diet on IV antibiotics: doxcycycline & meropenum trend lft continue GI prophylaxsis: on Protonix 40 mg daily put on scds while in bedDVT prophylaxsis continue bowel regemine: colace and miralax start anusol suppositories monitor bleeding Discuss with eldest daughter at the bedside regarding elective outpatient EGD & colon evaluation when patient is more optimal,dc to [facility] on hold for now. Seen and discussed w/ Dr. John. Addendum: repeat cbc from 11 am, hgb 10, am hgb 8.2, maybe dilutional, on IVF 2 100 cc/hr, will repeat at 4 hours.Spoke to ANGELICA Mejia. No further reports of bleeding. <Fernando John V - Last Filed: 05/17/17 11:51> Objective - Vital Signs/Intake and Output Vital Signs (last 24 hours): Temp Pulse Resp BP Pulse Ox 99.7 F H 93 H 19 113/52 L 95 05/16/17 16:00 05/16/17 16:00 05/16/17 16:00 05/16/17 16:00 05/16/17 16:00 Intake and Output: 05/16/17 05/17/17 18:59 06:59 Intake Total 720 Output Total 1100 700 Balance -380 -700 - Medications Medications: Current Medications Albuterol/Ipratropium (Duoneb 3 Mg/0.5 Mg (3 Ml) Ud) 3 ml IH [id number] [facility] Last Admin: 05/16/17 20:37 Dose: 3 ml Budesonide (Pulmicort Respules) 0.5 mg IH BIDRESP [facility] Last Admin: 05/16/17 20:38 Dose: 0.5 mg Docusate Sodium (Colace) 100 mg PO BID [facility] Last Admin: 05/16/17 17:35 Dose: 100 mg Donepezil HCl (Aricept) 10 mg PO HS [facility] Last Admin: 05/15/17 21:28 Dose: 10 mg Guaifenesin (Mucinex La) 600 mg PO BID [facility] Last Admin: 05/16/17 17:34 Dose: 600 mg Heparin Sodium (Porcine) (Heparin) 5,000 units SC Q12 [facility] PRN Reason: Protocol Hydrocortisone (Anusol-Hc) 25 mg RC BID [facility] Last Admin: 05/16/17 17:35 Dose: 25 mg Meropenem 1g/NS 100mL IVPB (Meropenem 1g/Ns 100ml Ivpb) 1 gm in 100 mls @ 100 mls/hr IVPB Q8 [facility] PRN Reason: Protocol Stop: 05/19/17 06:31 Last Admin: 05/16/17 14:35 Dose: 100 mls/hr Doxycycline Hyclate 100 mg/ (Sodium Chloride) 100 mls @ 100 mls/hr IVPB Q12 [facility] PRN Reason: Protocol Last Admin: 05/16/17 09:44 Dose: 100 mls/hr Sodium Chloride (Sodium Chloride 0.9%) 1,000 mls @ 100 mls/hr IV .Q10H [facility] Last Admin: 05/15/17 19:53 Dose: 100 mls/hr Pantoprazole Sodium (Protonix Ec Tab) 40 mg PO 0600 [facility] Last Admin: 05/16/17 06:04 Dose: 40 mg Polyethylene Glycol (Miralax) 17 gm PO BID [facility] Last Admin: 05/16/17 17:35 Dose: 17 gm Potassium Chloride (K-Dur 20 Meq Er Tab) 20 meq PO BRK [facility] Last Admin: 05/16/17 09:44 Dose: 20 meq Primidone (Mysoline) 250 mg PO HS [facility] Last Admin: 05/15/17 21:27 Dose: 250 mg Silver Sulfadiazine (Silvadene 1% 20 Gm) 1 ea TOP BID [facility] Last Admin: 05/16/17 17:34 Dose: 1 appl - Labs Labs: 05/16/17 16:04 05/16/17 07:00 PT 10.7 Seconds (9.9-11.8) 05/16/17 11:15 INR 0.99 (0.93-1.08) 05/16/17 11:15 APTT 44.8 Seconds (23.7-30.8) H 05/16/17 11:15 Attending/Attestation - Attestation I have personally seen and examined this patient.: Yes I have fully participated in the care of the patient.: Yes I have reviewed all pertinent clinical information, including history, physical exam and plan: Yes Notes (Text): this patient was seen and evaluated here earlier. Abdomen soft no tenderness. Rectal examination revealed brown stool and some streaks of blood. Hemoglobin stable. On antibiotics for pneumonia and SIRS. Status post manual disimpaction for fecal impaction would recommend symptomatic therapy hemorrhoidal suppositories stool softeners and laxative to avoid constipation .Elective colonoscopy once patient's condition is optimized Thank you very much for allowing us to participate in the care of the patient
--- NOTE | 2017-05-16 12:52 | RAD ---
HISTORY: pneumonia? CHF? atelectasis? COMPARISON: No prior. TECHNIQUE: Chest PA and lateral FINDINGS: LUNGS: Minimal bibasilar infiltrates PLEURA: Small pleural effusions CARDIOVASCULAR: Normal. OSSEOUS STRUCTURES: No significant abnormalities. VISUALIZED UPPER ABDOMEN: Normal. OTHER FINDINGS: None. IMPRESSION: Minimal bibasilar infiltrates and effusions
--- NOTE | 2017-05-16 15:50 | CP.PCM.PN ---
Subjective - Date & Time of Evaluation Date of Evaluation: 05/16/17 Time of Evaluation: 11:20 - Subjective Subjective: Comfortable on a chair, not in distress, afebrile, less abdominal pain, breathing better. Objective - Vital Signs/Intake and Output Vital Signs (last 24 hours): Temp Pulse Resp BP Pulse Ox 98.7 F 91 H 19 124/62 97 05/14/17 16:00 05/14/17 16:00 05/14/17 16:00 05/14/17 16:00 05/14/17 16:00 Intake and Output: 05/14/17 05/15/17 18:59 06:59 Intake Total 660 1150 Output Total 1200 1000 Balance -540 150 - Medications Medications: Current Medications Albuterol/Ipratropium (Duoneb 3 Mg/0.5 Mg (3 Ml) Ud) 3 ml IH [id number] [facility] Last Admin: 05/15/17 01:40 Dose: 3 ml Budesonide (Pulmicort Respules) 0.5 mg IH BIDRESP [facility] Last Admin: 05/14/17 20:08 Dose: 0.5 mg Docusate Sodium (Colace) 100 mg PO BID [facility] Donepezil HCl (Aricept) 10 mg PO HS [facility] Last Admin: 05/14/17 21:23 Dose: 10 mg Guaifenesin (Mucinex La) 600 mg PO BID [facility] Last Admin: 05/14/17 17:49 Dose: 600 mg Heparin Sodium (Porcine) (Heparin) 5,000 units SC Q8 [facility] PRN Reason: Protocol Last Admin: 05/15/17 05:32 Dose: 5,000 units Meropenem 1g/NS 100mL IVPB (Meropenem 1g/Ns 100ml Ivpb) 1 gm in 100 mls @ 100 mls/hr IVPB Q8 [facility] PRN Reason: Protocol Stop: 05/19/17 06:31 Last Admin: 05/15/17 05:27 Dose: 100 mls/hr Doxycycline Hyclate 100 mg/ (Sodium Chloride) 100 mls @ 100 mls/hr IVPB Q12 [facility] PRN Reason: Protocol Last Admin: 05/14/17 21:25 Dose: 100 mls/hr Sodium Chloride (Sodium Chloride 0.9%) 1,000 mls @ 100 mls/hr IV .Q10H [facility] Last Admin: 05/14/17 15:48 Dose: 100 mls/hr Vancomycin HCl (Vancomycin 1gm) 1 gm in 250 mls @ 167 mls/hr IVPB 0600,1800 [facility] PRN Reason: Protocol Stop: 05/17/17 12:01 Last Admin: 05/15/17 05:28 Dose: 167 mls/hr Pantoprazole Sodium (Protonix Inj) 40 mg IVP DAILY [facility] Last Admin: 05/14/17 10:38 Dose: 40 mg Polyethylene Glycol (Miralax) 17 gm PO BID [facility] Last Admin: 05/14/17 18:57 Dose: 17 gm Primidone (Mysoline) 250 mg PO HS [facility] Last Admin: 05/14/17 21:23 Dose: 250 mg - Labs Labs: 05/14/17 06:00 05/14/17 06:00 - Constitutional Appears: Non-toxic, No Acute Distress - Head Exam Head Exam: NORMAL INSPECTION - Neck Exam Neck Exam: absent: Meningismus - Respiratory Exam Respiratory Exam: Decreased Breath Sounds - Cardiovascular Exam Cardiovascular Exam: +S1, +S2 - GI/Abdominal Exam GI & Abdominal Exam: Soft. absent: Tenderness Assessment and Plan - Assessment and Plan (Free Text) Plan: Assessment Severe sepsis with S/P ventilator-dependent respiratory failure due to new onset left lower lobe healthcare-associated pneumonia with possible gram positive cocci and/or gram negative bacilli and/or atypical organisms; patient also with colitis associated with fecal impaction HTN CVA dementia history of colon surgery S/P orchiectomy and hydrocelectomy May 2017 Plan continue Vancomycin, Merrem and Doxycycline day 5 - cultures have been negative ; reviewed CT of the abdomen and pelvis (which showed the left lower lobe pneumonia and the colitis) - should complete 4-7 days of antibiotics will continue to monitor clinically
[2017-05-16 16:09] LABS: BASO # 0.01 K/mm3 (0.0-2.0); BASO % 0.1 % (0.0-3.0); EOS % 0.5 % (1.5-5.0); GRAN # 7.08 (1.4-6.5); GRAN % 86.4 % (50.0-68.0); HEMOGLOBIN 9.5 gm/dL (14.0-18.0); LYMPH # 0.6 (1.2-3.4); LYMPH % 7.1 % (22.0-35.0); MEAN CELL VOLUME 95.2 fL (80.0-105.0); MEAN CORPUSCULAR HEMOGLOBIN 30.3 pg (25.0-35.0); MEAN CORPUSCULAR HGB CONC 31.8 g/dl (31.0-37.0); MEAN PLATELET VOLUME 9.2 fl (7.0-11.0); MONO # 0.5 (0.1-0.6); MONO % 5.9 % (1.0-6.0); PLATELET COUNT 289 10^3/uL (120.0-450.0); RBC 3.14 10^6/uL (3.5-6.1); RED CELL DISTRIBUTION WIDTH 13.8 % (11.5-14.5); WHITE BLOOD COUNT 8.2 10^3/ul (4.5-11.0)
[2017-05-16] MEDS: Silver Sulfadiazine 1% Cream (20 gm) TOP SCH (17:34)
[2017-05-16 17:38] LABS: HEPATITIS B SURFACE AG NEGATIVE (NEGATIVE)
[2017-05-16 17:44] LABS: HEPATITIS A IGM NEGATIVE (NEGATIVE); HEPATITIS B CORE AB NEGATIVE (NEGATIVE)
[2017-05-16 17:55] LABS: HEPATITIS C ANTIBODY NEGATIVE (NEGATIVE)
[2017-05-16] MEDS: Sodium Chloride 0.9% 1,000 ML IV SCH (21:40)
[2017-05-17] MEDS: Meropenem 1g/NS 100mL IVPB 1 GM/100 ML PIGGYBACK IVPB SCH ×4 (00:42→21:26)
[2017-05-17] MEDS: Pantoprazole 40 mg EC Tab PO SCH (05:49)
[2017-05-17 07:47] LABS: BASO # 0.01 K/mm3 (0.0-2.0); BASO % 0.2 % (0.0-3.0); EOS # 0.1 (0.0-0.7); EOS % 0.9 % (1.5-5.0); GRAN % 79.4 % (50.0-68.0); HEMOGLOBIN 9.7 gm/dL (14.0-18.0); LYMPH # 0.6 (1.2-3.4); LYMPH % 10.5 % (22.0-35.0); MEAN CORPUSCULAR HEMOGLOBIN 30.5 pg (25.0-35.0); MEAN CORPUSCULAR HGB CONC 32.1 g/dl (31.0-37.0); MEAN PLATELET VOLUME 9.5 fl (7.0-11.0); MONO # 0.5 (0.1-0.6); PLATELET COUNT 308 10^3/uL (120.0-450.0); RBC 3.18 10^6/uL (3.5-6.1); RED CELL DISTRIBUTION WIDTH 13.7 % (11.5-14.5); WHITE BLOOD COUNT 5.8 10^3/ul (4.5-11.0)
[2017-05-17 07:56] LABS: ALB/GLOB RATIO 0.9 (1.1-1.8); ALBUMIN 2.5 g/dL (3.0-4.8); ALT/SGPT 87 U/L (7-56); AST/SGOT 90 U/L (15-59); BLOOD UREA NITROGEN 18 mg/dL (7-21); CALCIUM 8.3 mg/dL (8.4-10.5); GFR AFRICAN-AMERICAN > 60; GFR NON-AFRICAN AMERICAN > 60
[2017-05-17] MEDS: Budesonide 0.5 mg/2 ml Inhal Susp UD IH SCH ×2 (08:14→19:16)
[2017-05-17] MEDS: Albuterol-Ipratrop 3 mg / 0.5 (3 ml) UD IH SCH ×4 (08:14→21:24)
[2017-05-17] MEDS: Potassium Chloride 20 mEq ER Tab PO SCH (09:18)
[2017-05-17] MEDS: guaiFENesin 600 mg ER Tab PO SCH ×2 (09:18→17:40)
[2017-05-17] MEDS: POLYETHYLENE GLYCOL 3350 17 GM/Dose PACKET PO SCH ×2 (09:18→17:31)
[2017-05-17] MEDS: Silver Sulfadiazine 1% Cream (20 gm) TOP SCH ×2 (09:38→18:27)
--- NOTE | 2017-05-17 11:13 | PN ---
DATE: 05/15/2017 SUBJECTIVE: The patient is in bed, in no acute distress, non-toxic. PHYSICAL EXAMINATION: VITAL SIGNS: Temperature is 98, blood pressure is 125/60, respiratory rate is 18. HEENT: Unremarkable. NECK: Supple. LUNGS: Decreased breath sounds. HEART: Normal S1 and S2. ABDOMEN: Soft, nontender. LABORATORY EXAMINATION: Reveals a white count of 7.1, hemoglobin of 8. Chemistry reveals a BUN of 13, creatinine of 0.6 and procalcitonin is noted 0.69. Urinalysis is noted and serology for urine for Legionella antigen is negative. Microbiology reveals blood cultures are negative. Stool for C. diff toxin antigen is also negative. REVIEW OF ORDERS: Reveals the patient to be on meropenem and doxycycline. ASSESSMENT AND PLAN: An 89-year-old male with severe sepsis, status post ventilatory-dependent respiratory failure due to a new onset of left lower lobe healthcare associated pneumonia, positive for Gram-positive cocci, positive for Gram-negative eliceo in face of hypertension and cerebrovascular accident, on meropenem and doxycycline day #4. CAT scan of the abdomen is noted. Would complete 4-7 days and will follow closely with you. Paramjit May MD
--- NOTE | 2017-05-17 11:58 | DS ---
HISTORY OF PRESENT ILLNESS: I see him resting comfortably in bed. He is alert. He slept well. IV antibiotics are running. He has been nauseous. He is eating. He is moving his bowels. He is in good spirits. No chest pain or abdominal pain. No shortness of breath. He is on Aricept, Colace, doxycycline IV, DuoNeb, heparin, potassium, Merrem IV, MiraLax, Mucinex, Mysoline, Protonix, Pulmicort, and IV fluids. PHYSICAL EXAMINATION: VITAL SIGNS: 97.6 temperature, 102 to 88 pulse, 121/81 blood pressure, 22 respiratory rate, and 97% O2 saturations on nasal canula. HEENT: His head is atraumatic and normocephalic. Throat is moist. NECK: Supple. HEART: Regular rate. LUNG: Clear to auscultation. ABDOMEN: Soft, scaphoid, nontender. Positive bowel sounds. No guarding. No rebound. No CVA tenderness. EXTREMITIES: No edema. He is just weak. LABORATORY DATA: Yesterday were pretty good, again was potassium of 3.5, BUN and creatinine were good. Waiting for labs from this morning. His white count yesterday was 7.1, hemoglobin is 8.8, waiting for labs from this morning again. ASSESSMENT: He is being seen by GI, infectious disease, machine learning intern and urology. He is here for a few reasons, sepsis, left pneumonia, status post orchiectomy and hydrocele removal. He has colitis. He had acute respiratory failure when he came in. PLAN: My plan is to discharge him today to [facility] for further IV antibiotics for 7 more days plus physical therapy. We will keep the IVs in over get it over there. Pollo Jhaveri DO MTDD
[2017-05-17] MEDS: Sodium Chloride 0.9% 1,000 ML IV SCH ×3 (14:53→17:31)
--- NOTE | 2017-05-17 16:30 | CP.PCM.PN ---
Subjective - Date & Time of Evaluation Date of Evaluation: 05/17/17 Time of Evaluation: 11:50 - Subjective Subjective: Comfortable, afebrile, less abdominal pain, eating a little better. Objective - Vital Signs/Intake and Output Vital Signs (last 24 hours): Temp Pulse Resp BP Pulse Ox 98.6 F 76 19 130/62 99 05/17/17 07:58 05/17/17 07:58 05/17/17 07:58 05/17/17 07:58 05/17/17 07:58 Intake and Output: 05/17/17 05/17/17 06:59 18:59 Intake Total 0 Output Total 700 775 Balance -700 -685 - Medications Medications: Current Medications Albuterol/Ipratropium (Duoneb 3 Mg/0.5 Mg (3 Ml) Ud) 3 ml IH [id number] [facility] Last Admin: 05/17/17 08:14 Dose: 3 ml Budesonide (Pulmicort Respules) 0.5 mg IH BIDRESP [facility] Last Admin: 05/17/17 08:14 Dose: 0.5 mg Docusate Sodium (Colace) 100 mg PO BID [facility] Last Admin: 05/17/17 09:18 Dose: 100 mg Donepezil HCl (Aricept) 10 mg PO HS [facility] Last Admin: 05/17/17 00:39 Dose: 10 mg Guaifenesin (Mucinex La) 600 mg PO BID [facility] Last Admin: 05/17/17 09:18 Dose: 600 mg Heparin Sodium (Porcine) (Heparin) 5,000 units SC Q12 [facility] PRN Reason: Protocol Last Admin: 05/17/17 09:18 Dose: 5,000 units Hydrocortisone (Anusol-Hc) 25 mg RC BID [facility] Last Admin: 05/17/17 09:17 Dose: 25 mg Meropenem 1g/NS 100mL IVPB (Meropenem 1g/Ns 100ml Ivpb) 1 gm in 100 mls @ 100 mls/hr IVPB Q8 [facility] PRN Reason: Protocol Stop: 05/19/17 06:31 Last Admin: 05/17/17 05:48 Dose: 100 mls/hr Doxycycline Hyclate 100 mg/ (Sodium Chloride) 100 mls @ 100 mls/hr IVPB Q12 [facility] PRN Reason: Protocol Last Admin: 07/15/17 09:19 Dose: 100 mls/hr Sodium Chloride (Sodium Chloride 0.9%) 1,000 mls @ 100 mls/hr IV .Q10H [facility] Last Admin: 05/16/17 21:40 Dose: 100 mls/hr Pantoprazole Sodium (Protonix Ec Tab) 40 mg PO 0600 [facility] Last Admin: 05/17/17 05:49 Dose: 40 mg Polyethylene Glycol (Miralax) 17 gm PO BID [facility] Last Admin: 05/17/17 09:18 Dose: 17 gm Potassium Chloride (K-Dur 20 Meq Er Tab) 20 meq PO BRK [facility] Last Admin: 05/17/17 09:18 Dose: 20 meq Primidone (Mysoline) 250 mg PO HS [facility] Last Admin: 05/16/17 22:30 Dose: 250 mg Silver Sulfadiazine (Silvadene 1% 20 Gm) 1 ea TOP BID [facility] Last Admin: 05/17/17 09:38 Dose: 1 appl - Labs Labs: 05/17/17 07:00 05/17/17 07:00 PT 10.7 Seconds (9.9-11.8) 05/16/17 11:15 INR 0.99 (0.93-1.08) 05/16/17 11:15 APTT 44.8 Seconds (23.7-30.8) H 05/16/17 11:15 - Constitutional Appears: Non-toxic, No Acute Distress - Head Exam Head Exam: NORMAL INSPECTION - Neck Exam Neck Exam: absent: Meningismus - Respiratory Exam Respiratory Exam: Decreased Breath Sounds - Cardiovascular Exam Cardiovascular Exam: +S1, +S2 - GI/Abdominal Exam GI & Abdominal Exam: Soft. absent: Tenderness Assessment and Plan - Assessment and Plan (Free Text) Plan: Assessment Severe sepsis with S/P ventilator-dependent respiratory failure due to new onset left lower lobe healthcare-associated pneumonia with possible gram positive cocci and/or gram negative bacilli and/or atypical organisms; patient also with colitis associated with fecal impaction HTN CVA dementia history of colon surgery S/P orchiectomy and hydrocelectomy May 2017 Plan continue Vancomycin, Merrem and Doxycycline day 6 - cultures have been negative ; reviewed CT of the abdomen and pelvis (which showed the left lower lobe pneumonia and the colitis) - should complete 4-7 days of antibiotics - will d/c by tomorrow will continue to monitor clinically
--- NOTE | 2017-05-17 21:26 | PN ---
DATE: 05/17/2017 HISTORY OF PRESENT ILLNESS: I saw him this morning comfortably in bed. He slept fairly well. He is alert, in no pain. I was going to try and discharge him yesterday to subacute rehab, but he had blood in his stools. He is there with his family. He is better now. He has a normal bowel movement. He is very weak and needs therapy. He is on Anusol, Aricept, Colace, doxycycline IV, DuoNebs, heparin, potassium replacement, Merrem IV, MiraLax, Mucinex, Mysoline, Protonix, Pulmicort, Silvadene, and IV fluids. PHYSICAL EXAMINATION: VITAL SIGNS: 98.6 temp, 76 pulse, 130/62 blood pressure, 19 respiratory rate, 99% O2 sat on room air. HEENT: Head is atraumatic, normocephalic. Throat is moist. Neck supple. HEART: Regular rate. LUNGS: Decreased breath sounds but clear. ABDOMEN: Soft, nontender. Positive bowel sounds. EXTREMITIES: No edema. LABORATORY DATA: He has a 5.8 white count, 9.7 hemoglobin. He had blood in his stool yesterday and the hemoglobin went up today, hematocrit 30.2, platelets of 308. He has 135 sodium, potassium is 3.9, BUN is 18, creatinine 0.5, GFR is in the 60s, sugar is 82, calcium is 8.3, total bilirubin is 0.3, AST is 90, ALT is 87, alk phos is 89, total protein 5.3. His hepatitis screen is negative. His Legionella is negative. Strep is not detected. He is being seen by Infectious Disease, GI, Pulmonary. I will continue him with the Merrem and vancomycin. He needs to go to physical therapy. He has left lower lobe pneumonia and colitis. He was septic. He is status post ventilator dependent, and he has also had left lower lobe pneumonia. GI came in and saw him with a positive blood. He also has minimal bibasilar infiltrates on chest x-ray that is getting better. We will watch his hemoglobin count. Hopefully by Friday, he will be able to go to subacute rehab. I am going to check his labs tomorrow. Continue with antibiotics. Discussed with Infectious Disease. Pollo Jhaveri DO [facility] # [id number]
[2017-05-18] MEDS: Albuterol-Ipratrop 3 mg / 0.5 (3 ml) UD IH SCH ×4 (01:46→19:53)
[2017-05-18] MEDS: Meropenem 1g/NS 100mL IVPB 1 GM/100 ML PIGGYBACK IVPB SCH (06:29)
[2017-05-18] MEDS: Sodium Chloride 0.9% 1,000 ML IV SCH ×2 (06:30→21:48)
[2017-05-18] MEDS: Pantoprazole 40 mg EC Tab PO SCH (06:30)
[2017-05-18 07:56] LABS: HEMOGLOBIN 9.4 gm/dL (14.0-18.0); MEAN CELL VOLUME 95.8 fL (80.0-105.0); MEAN CORPUSCULAR HEMOGLOBIN 30.4 pg (25.0-35.0); MEAN CORPUSCULAR HGB CONC 31.8 g/dl (31.0-37.0); MEAN PLATELET VOLUME 9.9 fl (7.0-11.0); RBC 3.09 10^6/uL (3.5-6.1); RED CELL DISTRIBUTION WIDTH 14.1 % (11.5-14.5); WHITE BLOOD COUNT 7.1 10^3/ul (4.5-11.0)
[2017-05-18 08:07] LABS: ALB/GLOB RATIO 0.9 (1.1-1.8); ALBUMIN 2.5 g/dL (3.0-4.8); ALT/SGPT 78 U/L (7-56); AST/SGOT 75 U/L (15-59); BLOOD UREA NITROGEN 22 mg/dL (7-21); CALCIUM 8.2 mg/dL (8.4-10.5); GFR AFRICAN-AMERICAN > 60; GFR NON-AFRICAN AMERICAN > 60
[2017-05-18] MEDS: Budesonide 0.5 mg/2 ml Inhal Susp UD IH SCH ×2 (08:26→19:53)
--- NOTE | 2017-05-18 10:18 | CARD ---
APPROVED REPORT EKG Measurement Heart [id number] <Conclusion> Normal sinus rhythm Normal ECG
[2017-05-18] MEDS: Silver Sulfadiazine 1% Cream (20 gm) TOP SCH ×2 (10:38→17:35)
[2017-05-18] MEDS: POLYETHYLENE GLYCOL 3350 17 GM/Dose PACKET PO SCH ×2 (10:38→17:35)
[2017-05-18] MEDS: guaiFENesin 600 mg ER Tab PO SCH ×2 (10:40→17:36)
[2017-05-18] MEDS: Potassium Chloride 20 mEq ER Tab PO SCH (10:40)
--- NOTE | 2017-05-18 13:41 | CP.PCM.PN ---
Subjective - Date & Time of Evaluation Date of Evaluation: 05/18/17 Time of Evaluation: 11:20 - Subjective Subjective: Feeling better, breathing better, afebrile, not in distress. Objective - Vital Signs/Intake and Output Vital Signs (last 24 hours): Temp Pulse Resp BP Pulse Ox 98.8 F 96 H 21 118/58 L 96 05/18/17 07:28 05/18/17 07:28 05/18/17 07:28 05/18/17 07:28 05/18/17 07:28 Intake and Output: 05/18/17 05/18/17 06:59 18:59 Intake Total 2400 0 Output Total 1350 900 Balance 1050 -900 - Medications Medications: Current Medications Albuterol/Ipratropium (Duoneb 3 Mg/0.5 Mg (3 Ml) Ud) 3 ml IH [id number] [facility] Last Admin: 05/18/17 01:46 Dose: 3 ml Budesonide (Pulmicort Respules) 0.5 mg IH BIDRESP [facility] Last Admin: 05/17/17 19:16 Dose: 0.5 mg Docusate Sodium (Colace) 100 mg PO BID [facility] Last Admin: 05/17/17 17:31 Dose: Not Given Donepezil HCl (Aricept) 10 mg PO HS [facility] Last Admin: 05/17/17 21:26 Dose: 10 mg Guaifenesin (Mucinex La) 600 mg PO BID [facility] Last Admin: 05/17/17 17:40 Dose: 600 mg Heparin Sodium (Porcine) (Heparin) 5,000 units SC Q12 [facility] PRN Reason: Protocol Last Admin: 05/17/17 21:25 Dose: 5,000 units Hydrocortisone (Anusol-Hc) 25 mg RC BID [facility] Last Admin: 05/17/17 17:31 Dose: Not Given Meropenem 1g/NS 100mL IVPB (Meropenem 1g/Ns 100ml Ivpb) 1 gm in 100 mls @ 100 mls/hr IVPB Q8 [facility] PRN Reason: Protocol Stop: 05/19/17 06:31 Last Admin: 05/18/17 06:29 Dose: 100 mls/hr Doxycycline Hyclate 100 mg/ (Sodium Chloride) 100 mls @ 100 mls/hr IVPB Q12 [facility] PRN Reason: Protocol Last Admin: 05/17/17 21:25 Dose: 100 mls/hr Sodium Chloride (Sodium Chloride 0.9%) 1,000 mls @ 100 mls/hr IV .Q10H [facility] Last Admin: 05/18/17 06:30 Dose: 100 mls/hr Pantoprazole Sodium (Protonix Ec Tab) 40 mg PO 0600 [facility] Last Admin: 05/18/17 06:30 Dose: 40 mg Polyethylene Glycol (Miralax) 17 gm PO BID [facility] Last Admin: 05/17/17 17:31 Dose: Not Given Potassium Chloride (K-Dur 20 Meq Er Tab) 20 meq PO BRK [facility] Last Admin: 05/17/17 09:18 Dose: 20 meq Primidone (Mysoline) 250 mg PO HS [facility] Last Admin: 05/17/17 21:25 Dose: 250 mg Silver Sulfadiazine (Silvadene 1% 20 Gm) 1 ea TOP BID [facility] Last Admin: 05/17/17 18:27 Dose: 1 appl - Labs Labs: 05/17/17 07:00 05/17/17 07:00 PT 10.7 Seconds (9.9-11.8) 05/16/17 11:15 INR 0.99 (0.93-1.08) 05/16/17 11:15 APTT 44.8 Seconds (23.7-30.8) H 05/16/17 11:15 - Constitutional Appears: Non-toxic, No Acute Distress - Head Exam Head Exam: NORMAL INSPECTION - ENT Exam ENT Exam: Mucous Membranes Moist - Neck Exam Neck Exam: absent: Lymphadenopathy, Meningismus - Respiratory Exam Respiratory Exam: Decreased Breath Sounds - Cardiovascular Exam Cardiovascular Exam: +S1, +S2 - GI/Abdominal Exam GI & Abdominal Exam: Soft. absent: Tenderness Assessment and Plan - Assessment and Plan (Free Text) Plan: Assessment Severe sepsis with S/P ventilator-dependent respiratory failure due to new onset left lower lobe healthcare-associated pneumonia with possible gram positive cocci and/or gram negative bacilli and/or atypical organisms; patient also with colitis associated with fecal impaction HTN CVA dementia history of colon surgery S/P orchiectomy and hydrocelectomy May 2017 Plan on Vancomycin, Merrem and Doxycycline day 7 - cultures have been negative; reviewed CT of the abdomen and pelvis (which showed the left lower lobe pneumonia and the colitis) - should complete 4-7 days of antibiotics - will d/c today will continue to monitor clinically
--- NOTE | 2017-05-18 14:00 | RAD ---
HISTORY: chest pain COMPARISON: Comparison chest dated 05/16/2017 FINDINGS: LUNGS: Bilateral lower lobe opacities may represent some combination of atelectasis/ infiltrate and effusions. The the interstitial markings are also increased which could be secondary to developing pulmonary edema/ CHF. Biapical pleural thickening right greater than left No active pulmonary disease. PLEURA: As above. No pneumothorax apparent. CARDIOVASCULAR: Normal. OSSEOUS STRUCTURES: No significant abnormalities. VISUALIZED UPPER ABDOMEN: Normal. OTHER FINDINGS: None. IMPRESSION: Bilateral lower lobe opacities may represent some combination of atelectasis/ infiltrate and effusions. The the interstitial markings are also increased which could be secondary to developing pulmonary edema/ CHF. Biapical pleural thickening right greater than left No active pulmonary disease.
[2017-05-19] MEDS: Sodium Chloride 0.9% 1,000 ML IV SCH
[2017-05-19] MEDS: Albuterol-Ipratrop 3 mg / 0.5 (3 ml) UD IH SCH ×4 (02:29→19:14)
--- NOTE | 2017-05-19 03:28 | PN ---
DATE: 05/16/2017 Room 365. SUBJECTIVE: The patient is markedly improved. He is sitting on bed, eating without distress. He seems to be breathing easier and has no abdominal pain at this point in time, and does seem to be improving. He does have trouble expectorating thick secretions that are still in his lungs despite additional therapy. OBJECTIVE: VITAL SIGNS: Stable. He is afebrile despite a report today that his respiratory rate was 42, it is in fact 16. His pulse ox is 97%. He is in negative fluid balance. HEENT: Within normal limits. NECK: Supple. No JVD. No lymphadenopathy. No bruits. CARDIAC: Tachycardia. No gallops, soft systolic ejection murmur. RESPIRATORY STATUS: Decreased breath sounds throughout globally. Minimal rhonchi noted. Increased airway secretions in the upper airways. GI: Soft. Bowel sounds are normoactive with mild tenderness still appreciated. : Within normal limits SKIN: Dry; intact. EXTREMITIES: Reveal no clubbing, cyanosis, or edema. There is no Homans sign. NEUROLOGIC: Improved. No lymphadenopathy is appreciated. IMPRESSION: As stated above, 1. Mucus plugging. 2. Pneumonia. 3. Respiratory insufficiency, status post respiratory failure. PLAN: Continue same medications. He remains on antibiotics, multiple with some inhalation treatments that continue. These need to be adjusted, however. He appears to be on DuoNeb and budesonide for long-term basis. I believe that we could do better on b.i.d. schedule and we will discuss with you. We will need to repeat a chest x-ray to make sure there is no underlying atelectasis, pneumonitis, or additional pathology. Thank you for the opportunity to continue to follow this tanmay gentleman. Vishnu Canela MD [facility]
--- NOTE | 2017-05-19 03:30 | PN ---
DATE: 05/18/2017 SUBJECTIVE: Dwayne is resting comfortable in bed this morning with the nurses present. He slept well. He is comfortable and smiling. No chest pain. No shortness of breath. No abdominal pain at this time. We discussed that he will probably go tomorrow for subacute rehab. He did have a little bit of blood in his stools the other day that is why we did not send him to subacute rehab and that ended up being okay with an elevated hemoglobin next day and then I get a call about 2 hours later from my visit this morning when his daughter came in and the first thing he told that he had chest pain. Now we did an EKG, chest x-ray, and a blood test. The troponin was negative. The EKG is normal sinus rhythm and I am waiting for the chest x-ray to be read, but it is interesting when the daughter came in he had chest pain, when I was there, he had no complains at all. I am still planning on discharging him to subacute rehab tomorrow. He was here for severe sepsis, status post ventilator-dependent respiratory failure. He did have a left lower lobe pneumonia, hypertension, and old CVA. MEDICATIONS: He is on vancomycin, Merrem, and doxycycline. Cultures have been negative. A little bit of colitis and a left lower lobe pneumonia, which we know about. I am hoping to discharge him tomorrow, which is the 05/19/2017. PHYSICAL EXAMINATION VITAL SIGNS: Right now; temperature 98.8, pulse 96, blood pressure 118/58, respiratory rate 21, O2 saturation 96% in 2 L. HEENT: Head is atraumatic and normocephalic. Throat is moist. NECK: Supple. HEART: Regular rate. LUNGS: Clear to auscultation bilaterally. ABDOMEN: Soft. EXTREMITIES: No edema. LABORATORY DATA: White count 7.1, hemoglobin 9.4, hematocrit 29.6, platelets 320. Sodium 132, potassium 4.6, BUN 22, creatinine 0.5, GFR is within the 60s, sugar is 85, calcium is 8.2, total bilirubin is 0.3, AST is 75, ALT is 78, alkaline phosphatase is 108, and troponin today was less than 0.01 normal, total protein of 5.2. ASSESSMENT AND PLAN: I am not sure what this chest pain was this morning unless it is part of his pneumonia or gas. So we will continue with aggressive treatment and care. We will plan to discharge him tomorrow to subacute rehab and hope he have a very nice day. This is a progress note on Dwayne Hoffmann who is septic plus pneumonia, status post respiratory failure, colitis, and now with chest pain, which is not cardiac-related so far. Pollo Jhaveri DO
[2017-05-19] MEDS: Pantoprazole 40 mg EC Tab PO SCH (05:59)
[2017-05-19 08:03] VITALS: O2SAT 97
[2017-05-19] MEDS: Budesonide 0.5 mg/2 ml Inhal Susp UD IH SCH ×2 (08:04→19:14)
--- NOTE | 2017-05-19 08:05 | PCM.URO ---
Urology Progress Note - Objective Lab Results Last 24 Hours: Laboratory Results - last 24 hr 05/18/17 05/18/17 07:00 08:48 Sodium 133 Potassium 4.6 Chloride 99 Carbon Dioxide 32 Anion Gap 7 L BUN 22 H Creatinine 0.5 Est GFR ( Amer) > 60 Est GFR (Non-Af Amer) > 60 Random Glucose 85 Calcium 8.2 L Total Bilirubin 0.3 AST 75 H ALT 78 H Alkaline Phosphatase 108 Troponin I < 0.01 Total Protein 5.2 L Albumin 2.5 L Globulin 2.8 Albumin/Globulin Ratio 0.9 L Intake & Output: Intake & Output 05/18/17 05/19/17 05/19/17 18:59 06:59 18:59 Intake Total 600 0 Output Total 2400 2500 Balance -1800 -2500 Intake: Oral 600 0 Output: Urine 2400 2500 Urethral (Cueva) 2400 2500 Stool 0 Other: Voiding Method Indwelling Catheter # Bowel Movements 4 1 Vital Signs: Vital Signs - 24 hr 05/19/17 08:02 Temperature 97.6 F Pulse Rate 91 H Respiratory 20 Rate Blood Pressure 111/59 L O2 Sat by Pulse 97 Oximetry
--- NOTE | 2017-05-19 09:47 | PN ---
SUBJECTIVE: I saw him resting comfortably in bed. He slept fairly well last night. He is definitely breathing a lot better than when he came in. He is on IV antibiotics and is on oxygen. He is very weak. He is going to need to have subacute rehab for continued iv abs for 1 more week as per physical therapy. He is trying to eat but weak. MEDICATIONS: He is currently on Aricept, Colace, doxycycline IV, DuoNeb, heparin, Merrem IV, MiraLax, Mucinex, Mysoline, Protonix, Pulmicort,and IV fluids. PHYSICAL EXAMINATION VITAL SIGNS: Temp 98.7, pulse 91, blood pressure 124/62, respiratory rate 19, and O2 sat 97% on 3 L nasal cannula. HEENT: Head is atraumatic and normocephalic. Throat is dry. NECK: Supple. CARDIOPULMONARY: Heart is regular rate. LUNGS: Decreased breath sounds bilaterally. Poor effort. Mild congestion changes with cough. ABDOMEN: Soft and nontender. Positive bowel sounds. EXTREMITIES: No edema, but he is weak. LABORATORY DATA: He has a 7.1 white count, it is the best it has been; 8.8 hemoglobin, he dropped about 3 g of hemoglobin; 27.2 hematocrit; and 294 platelets. Sodium 139 and potassium 3.5. We are going to give him some potassium. BUN is 13, creatinine is 0.6, GFR is 79, calcium is 7.8, total bilirubin is 0.2, AST is 61, ALT is 65, alkaline phosphatase is 65, total protein is 4.6. Urine is small, negative Legionella. ASSESSMENT AND PLAN: He is being seen by Infectious Disease, Gastrointestinal, senior accounting specialist, and urologist. He recently had a CAT scan of the abdomen and pelvis yesterday. It showed bilateral pleural effusions, interval increase in bibasilar compression atelectasis with opacity, ascites has increased, stercoral colitis, extensive rectal stool impaction, cholecystectomy, mild biliary duct dilatation, and bilateral kidney stones non-obstructing. I am trying to get him to subacute rehab. I do not think he is medically and clinically prepared yet. Hopefully, in the next day or two, we will get him to subacute rehab or physical therapy. We will check his labs tomorrow and continue with aggressive treatment and care. He will need 1 more week of iv abs as per id. Pollo Jhaveri DO cc: [id number]
[2017-05-19] MEDS: guaiFENesin 600 mg ER Tab PO SCH (10:01)
[2017-05-19] MEDS: Potassium Chloride 20 mEq ER Tab PO SCH (10:01)
[2017-05-19] MEDS: POLYETHYLENE GLYCOL 3350 17 GM/Dose PACKET PO SCH (10:01)
[2017-05-19] MEDS: Silver Sulfadiazine 1% Cream (20 gm) TOP SCH (10:02)
--- NOTE | 2017-05-19 14:25 | CP.PCM.PN ---
Subjective - Date & Time of Evaluation Date of Evaluation: 05/19/17 Time of Evaluation: 10:55 - Subjective Subjective: Patient is feeling better, no fevers overnight, abdominal pain has improved, eating a little better today, breathing better as well. Objective - Vital Signs/Intake and Output Vital Signs (last 24 hours): Temp Pulse Resp BP Pulse Ox 97.6 F 91 H 20 111/59 L 97 05/19/17 08:02 05/19/17 08:02 05/19/17 08:02 05/19/17 08:02 05/19/17 08:02 Intake and Output: 05/19/17 05/19/17 06:59 18:59 Intake Total 0 Output Total 2500 Balance -2500 - Medications Medications: Current Medications Albuterol/Ipratropium (Duoneb 3 Mg/0.5 Mg (3 Ml) Ud) 3 ml IH [id number] [facility] Last Admin: 05/19/17 08:04 Dose: 3 ml Budesonide (Pulmicort Respules) 0.5 mg IH BIDRESP [facility] Last Admin: 05/19/17 08:04 Dose: 0.5 mg Docusate Sodium (Colace) 100 mg PO BID [facility] Last Admin: 05/18/17 17:35 Dose: Not Given Donepezil HCl (Aricept) 10 mg PO HS [facility] Last Admin: 05/18/17 21:48 Dose: 10 mg Guaifenesin (Mucinex La) 600 mg PO BID [facility] Last Admin: 05/18/17 17:36 Dose: 600 mg Heparin Sodium (Porcine) (Heparin) 5,000 units SC Q12 [facility] PRN Reason: Protocol Last Admin: 05/18/17 21:49 Dose: 5,000 units Hydrocortisone (Anusol-Hc) 25 mg RC BID [facility] Last Admin: 05/18/17 17:35 Dose: Not Given Pantoprazole Sodium (Protonix Ec Tab) 40 mg PO 0600 [facility] Last Admin: 05/19/17 05:59 Dose: 40 mg Polyethylene Glycol (Miralax) 17 gm PO BID [facility] Last Admin: 05/18/17 17:35 Dose: Not Given Potassium Chloride (K-Dur 20 Meq Er Tab) 20 meq PO BRK [facility] Last Admin: 05/18/17 10:40 Dose: 20 meq Primidone (Mysoline) 250 mg PO HS [facility] Last Admin: 05/18/17 21:48 Dose: 250 mg Silver Sulfadiazine (Silvadene 1% 20 Gm) 1 ea TOP BID [facility] Last Admin: 05/18/17 17:35 Dose: 1 appl - Labs Labs: 05/18/17 07:00 05/18/17 07:00 PT 10.7 Seconds (9.9-11.8) 05/16/17 11:15 INR 0.99 (0.93-1.08) 05/16/17 11:15 APTT 44.8 Seconds (23.7-30.8) H 05/16/17 11:15 - Constitutional Appears: Non-toxic, No Acute Distress - Head Exam Head Exam: NORMAL INSPECTION - Neck Exam Neck Exam: absent: Meningismus - Respiratory Exam Respiratory Exam: Decreased Breath Sounds - Cardiovascular Exam Cardiovascular Exam: +S1, +S2 - GI/Abdominal Exam GI & Abdominal Exam: Soft. absent: Tenderness Assessment and Plan - Assessment and Plan (Free Text) Plan: Assessment Severe sepsis with S/P ventilator-dependent respiratory failure due to new onset left lower lobe healthcare-associated pneumonia with possible gram positive cocci and/or gram negative bacilli and/or atypical organisms; patient also with colitis associated with fecal impaction HTN CVA dementia history of colon surgery S/P orchiectomy and hydrocelectomy May 2017 Plan S/P 7 days of Vancomycin, Merrem and Doxycycline - will continue to monitor the patient off antibiotics since he is at risk for healthcare-associated infections
--- NOTE | 2017-05-19 15:32 | CP.PCM.PN ---
Subjective - Date & Time of Evaluation Date of Evaluation: 05/19/17 Time of Evaluation: 08:40 - Subjective Subjective: S&E at bedside earlier, chart reviewed, daughter at bedside, rectal discomfort better, no further bleeding, c/o "diarrhea" yesterday but nursing staff report "pasty" stool, Miralax, held, no new complaints, tolerating oral intake. Objective - Vital Signs/Intake and Output Vital Signs (last 24 hours): Temp Pulse Resp BP Pulse Ox 97.6 F 91 H 20 111/59 L 97 05/19/17 08:02 05/19/17 08:02 05/19/17 08:02 05/19/17 08:02 05/19/17 08:02 Intake and Output: 05/19/17 05/19/17 06:59 18:59 Intake Total 0 Output Total 2500 Balance -2500 - Medications Medications: Current Medications Albuterol/Ipratropium (Duoneb 3 Mg/0.5 Mg (3 Ml) Ud) 3 ml IH [id number] [facility] Last Admin: 05/19/17 13:20 Dose: 3 ml Budesonide (Pulmicort Respules) 0.5 mg IH BIDRESP [facility] Last Admin: 05/19/17 08:04 Dose: 0.5 mg Docusate Sodium (Colace) 100 mg PO BID [facility] Last Admin: 05/19/17 10:00 Dose: 100 mg Donepezil HCl (Aricept) 10 mg PO HS [facility] Last Admin: 05/18/17 21:48 Dose: 10 mg Guaifenesin (Mucinex La) 600 mg PO BID [facility] Last Admin: 05/19/17 10:01 Dose: 600 mg Heparin Sodium (Porcine) (Heparin) 5,000 units SC Q12 [facility] PRN Reason: Protocol Last Admin: 05/19/17 10:01 Dose: 5,000 units Hydrocortisone (Anusol-Hc) 25 mg RC BID [facility] Last Admin: 05/19/17 10:01 Dose: 25 mg Pantoprazole Sodium (Protonix Ec Tab) 40 mg PO 0600 [facility] Last Admin: 05/19/17 05:59 Dose: 40 mg Polyethylene Glycol (Miralax) 17 gm PO BID [facility] Last Admin: 05/19/17 10:01 Dose: 17 gm Potassium Chloride (K-Dur 20 Meq Er Tab) 20 meq PO BRK [facility] Last Admin: 05/19/17 10:01 Dose: 20 meq Primidone (Mysoline) 250 mg PO HS [facility] Last Admin: 05/18/17 21:48 Dose: 250 mg Silver Sulfadiazine (Silvadene 1% 20 Gm) 1 ea TOP BID [facility] Last Admin: 05/19/17 10:02 Dose: 1 appl - Labs Labs: 05/18/17 07:00 05/18/17 07:00 PT 10.7 Seconds (9.9-11.8) 05/16/17 11:15 INR 0.99 (0.93-1.08) 05/16/17 11:15 APTT 44.8 Seconds (23.7-30.8) H 05/16/17 11:15 - Constitutional Appears: No Acute Distress - Head Exam Head Exam: NORMOCEPHALIC - Eye Exam Eye Exam: Normal appearance. absent: Scleral icterus - ENT Exam ENT Exam: Mucous Membranes Moist - Neck Exam Neck Exam: Normal Inspection - Respiratory Exam Respiratory Exam: NORMAL BREATHING PATTERN. absent: Respiratory Distress - Cardiovascular Exam Cardiovascular Exam: +S1, +S2 - GI/Abdominal Exam GI & Abdominal Exam: Soft, Normal Bowel Sounds. absent: Guarding, Tenderness, Rebound - Extremities Exam Extremities Exam: absent: Calf Tenderness, Pedal Edema - Neurological Exam Neurological Exam: Alert, Awake, Oriented x3 Assessment and Plan - Assessment and Plan (Free Text) Assessment: ASSESSMENT: Resolved Sepsis Blood per rectum, may be secondary to hemorrhoids, irritation, fissure Resolved Abdominal Pain, maybe secondary to severe constipation Anemia s/p Respiratory Failure, extubated Pneumonia Stercoral Colitis secondary fecal impaction, disimpacted and now muliple BM, differential Cdiff colitis, stool for cdiff negative Dilated biliary ducts, h/o cholecystectomy, abd us no acute findings Elevated LFT, maybe medication induced, on multiple antibiotics Dementia CVA PLAN: regular soft diet on DVT prophylaxsis off antibiotics continue GI prophylaxsis continue bowel regemine: colace and miralax , monitor stools, hold if stools>2/ day or loose anusol suppositories monitor bleeding plan for DC today back to [facility] Seen and discussed w/ Dr. John.
--- NOTE | 2017-05-19 15:42 | PN ---
PULMONARY FOLLOWUP NOTE The patient remains on the medical floor, sitting in bed, eating well. Clinically he appears better. His examination and x-ray did not appear as good as the way he actually looks, perhaps there is a lag in his improvement. Subjectively the patient appears improved, sitting in bed, eating, no respiratory distress, no cough or expectoration; no additional complaints. SUBJECTIVE: VITAL SIGNS: Stable and afebrile. Oxygen sat 97%, respiratory rate 16, blood pressure 130/70. NECK: Supple. No JVD. No lymphadenopathy. No bruit. HEART: Regular rhythm, S1 and S2 without murmur, gallop or rub. RESPIRATORY STATUS: Decreased breath sounds throughout. Decreased rhonchi at the bases. ABDOMEN: Soft. Bowel sounds normoactive without masses, guarding, rebound or organomegaly. EXTREMITIES: Reveal no clubbing, cyanosis or edema. There is no May's sign. NEUROLOGIC: No focal findings. Motor, sensory, and coordination appears to be normal. LYMPHATICS: Lymphadenopathy not present. No lymph nodes are palpated in the supraclavicular notch nor in the cervical, axillary areas. CLINICAL IMPRESSION: 1. Mucus plugging. 2. Pneumonia. 3. Atelectasis. 4. Respiratory insufficiency secondary to respiratory failure; now with respiratory insufficiency, in resolution. 5. Chronic obstructive pulmonary disease. PLAN: Continue medications. Continue antibiotics and bronchodilators. Chest x-ray was recently done, this needs to be evaluated further. We will tell if we continue antibiotics and bronchodilators. The patient requires additional chest physical therapy, which we have discussed with respiratory therapy. We have spoken to the patient and the patient's daughter at the bedside. We will speak to the primary medical doctor later this morning and continue our followup. I am hoping that the remainder of his status improves and he is able to get up and get around a little bit more. He should improve slowly.
[2017-05-19 17:11] VITALS: BP 107/64; PULSE 100; RESP 19; TEMP 97.8
--- NOTE | 2017-05-20 02:51 | DS ---
HISTORY OF PRESENT ILLNESS: I saw him over the weekend. Since Friday, he had bleeding from his rectum and then he had chest pain over the weekend. So far all the tests panned out to be well. He is good enough to be discharged today the subacute rehab near his daughter. CURRENT MEDICATIONS: He is currently on Anusol, Aricept, Colace, DuoNeb, heparin, MiraLAX, Mucinex, Mysoline, Protonix, Pulmicort, Silvadene, and IV fluids. PHYSICAL EXAMINATION: VITAL SIGNS: Temperature 97.6, pulse 91, blood pressure 111/59, respiratory rate 20, and O2 saturation 97% on 2 L nasal cannula. GENERAL: He is alert. Looking at me happy. Shaking my hands. HEENT: Head is atraumatic and normocephalic. Throat is moist. NECK: Supple. HEART: Regular rate. LUNGS: Clear to auscultation. ABDOMEN: Soft. EXTREMITIES: No edema. LABORATORY DATA: His last labs, he had a 7.1 white count, 9.4 hemoglobin, 29.6 hematocrit with a 320 platelets. Sodium 133, potassium 4.6, BUN 22, creatinine 0.7, troponin is greater than 60, sugar is 85, calcium is 8.2, total bilirubin is 0.3, AST is 75, ALT is 78, alkaline phosphatase 108, troponin is less than 0.01, and total protein is 5.2. Urine was small. Hepatitis is negative. Legionella is negative. Strep not detected. HOSPITAL COURSE: He is being seen by Urology, Infectious Disease, Cardiology, GI. If he is good as he is right now, he is going to be transferred hopefully to subacute rehab near his daughter and continue treatment there. ASSESSMENT: He was here for numerous reasons; sepsis/pneumonia, status post intubation and extubation; colitis; acute respiratory failure; and chest pain, which was not cardiac, and rectal bleed, which seem like there is a hemorrhoid. Pollo Jhaveri DO
== END 2017-05-19 22:30 | DRG 871 ==
LOC: ED 22:51 → ERH 05-12 03:14 → CCU 05-12 05:54 → 3RNO 05-13 17:49
PROVIDERS: ADMIT Family Medicine; ATTEND Family Medicine
PROC: 0BH17EZ Insertion of Endotracheal Airway into Trachea, Via Natural or Artificial Opening (ICD-10-PCS; principal; 2017-05-12)
PROC: 5A1935Z Respiratory Ventilation, Less than 24 Consecutive Hours (ICD-10-PCS; 2017-05-12)
DX: A41.9 Sepsis, unspecified organism (principal); J18.9 Pneumonia, unspecified organism; Z99.11 Dependence on respirator [ventilator] status; L89.152 Pressure ulcer of sacral region, stage 2; J44.0 Chronic obstructive pulmonary disease with (acute) lower respiratory infection; J96.01 Acute respiratory failure with hypoxia; I11.0 Hypertensive heart disease with heart failure; J96.02 Acute respiratory failure with hypercapnia; R18.8 Other ascites; I50.9 Heart failure, unspecified; J98.11 Atelectasis; G30.9 Alzheimer's disease, unspecified; F02.80 Dementia in other diseases classified elsewhere, unspecified severity, without behavioral disturbance, psychotic disturbance, mood disturbance, and anxiety; K52.9 Noninfective gastroenteritis and colitis, unspecified; K56.41 Fecal impaction; N20.0 Calculus of kidney; R65.20 Severe sepsis without septic shock; T17.990A Other foreign object in respiratory tract, part unspecified in causing asphyxiation, initial encounter; Y95 Nosocomial condition; Z85.47 Personal history of malignant neoplasm of testis; Z86.73 Personal history of transient ischemic attack (TIA), and cerebral infarction without residual deficits; Z87.891 Personal history of nicotine dependence; Z90.79 Acquired absence of other genital organ(s); R40.2412 Glasgow coma scale score 13-15, at arrival to emergency department